=== PATIENT | female | born 1940 | race Caucasian/White ===

== ENCOUNTER → 2016-12-27 | Outpatient (CLI) | payer BC ==
[~2016-12-27] MED LIST: ASCA500 PO; ASPCH81X PO; CALCTAB5 PO; CHOL100010 PO; GEMF600T3 PO; MAGN250T3 PO; MULT-506 PO; MULT-580 PO; OMEG10007 PO; POTA75TA PO; SELE1TAB10 PO; VITA100C4 PO
== END | disposition home or self-care (01) ==
LOC: C.LAB 12:47
PROVIDERS: ATTEND Internal Medicine Rheumatology
DX: R70.0 Elevated erythrocyte sedimentation rate (principal); Z79.52 Long term (current) use of systemic steroids

== ENCOUNTER → 2017-02-19 | Outpatient (CLI) | payer BC | END | disposition home or self-care (01) | LOC: C.LAB1850 10:49 | PROVIDERS: ATTEND Internal Medicine Rheumatology | DX: M31.6 Other giant cell arteritis (principal); Z79.52 Long term (current) use of systemic steroids ==

== ENCOUNTER → 2017-03-04 | Outpatient (CLI) | payer BC | END | disposition home or self-care (01) | LOC: C.LAB1850 10:47 | PROVIDERS: ATTEND Internal Medicine Rheumatology | DX: R70.0 Elevated erythrocyte sedimentation rate (principal); M31.6 Other giant cell arteritis; M15.9 Polyosteoarthritis, unspecified; E55.9 Vitamin D deficiency, unspecified; T38.0X1A Poisoning by glucocorticoids and synthetic analogues, accidental (unintentional), initial encounter; Z51.81 Encounter for therapeutic drug level monitoring; Z79.52 Long term (current) use of systemic steroids ==

== ENCOUNTER → 2017-03-31 | Outpatient (CLI) | payer BC | END | disposition home or self-care (01) | LOC: C.MAMM 11:21 | PROVIDERS: ATTEND Internal Medicine Rheumatology | DX: M31.6 Other giant cell arteritis (principal); Z79.52 Long term (current) use of systemic steroids; E55.9 Vitamin D deficiency, unspecified; T38.0X1A Poisoning by glucocorticoids and synthetic analogues, accidental (unintentional), initial encounter ==

== ENCOUNTER → 2017-04-02 | Outpatient (CLI) | payer BC | END | disposition home or self-care (01) | LOC: C.LAB1850 10:11 | PROVIDERS: ATTEND Internal Medicine Rheumatology | DX: M31.6 Other giant cell arteritis (principal) ==

== ENCOUNTER → 2017-05-14 | Outpatient (CLI) | payer BC | END | disposition home or self-care (01) | LOC: C.LAB1850 11:12 | PROVIDERS: ATTEND Internal Medicine Rheumatology | DX: M31.6 Other giant cell arteritis (principal); M35.3 Polymyalgia rheumatica; Z79.52 Long term (current) use of systemic steroids; T38.0X1A Poisoning by glucocorticoids and synthetic analogues, accidental (unintentional), initial encounter ==

== ENCOUNTER → 2017-07-16 | Outpatient (CLI) | payer BC | END | disposition home or self-care (01) | LOC: C.LAB1850 09:46 | PROVIDERS: ATTEND Internal Medicine Rheumatology | DX: M31.6 Other giant cell arteritis (principal); M35.3 Polymyalgia rheumatica; Z79.52 Long term (current) use of systemic steroids ==

== ENCOUNTER → 2017-08-26 | Outpatient (CLI) | payer BC | END | disposition home or self-care (01) | LOC: C.LAB1850 10:58 | PROVIDERS: ATTEND Internal Medicine Rheumatology | DX: M31.6 Other giant cell arteritis (principal); M35.3 Polymyalgia rheumatica; T38.0X1A Poisoning by glucocorticoids and synthetic analogues, accidental (unintentional), initial encounter; M15.9 Polyosteoarthritis, unspecified ==

== ENCOUNTER → 2017-09-24 | Outpatient (CLI) | payer BC | END | disposition home or self-care (01) | LOC: C.LAB1850 10:32 | PROVIDERS: ATTEND Internal Medicine Rheumatology | DX: M31.6 Other giant cell arteritis (principal); M81.8 Other osteoporosis without current pathological fracture ==

== ENCOUNTER → 2017-11-06 | Outpatient (CLI) | payer BC ==
--- NOTE | 2017-11-06 14:35 | MAMMOGRAPHY REPORT ---
BILATERAL DIGITAL SCREENING MAMMOGRAM WITH CAD: 11/06/2017 CLINICAL HISTORY: Routine screening. Patient has no complaints. TECHNIQUE: Current study was also evaluated with a Computer Aided Detection (CAD) system. Bilateral CC and MLO views were obtained. COMPARISON: Comparison is made to exams dated: 11/05/2016 mammogram, 11/02/2015 mammogram, 4 mammogram, 10/29/2013 mammogram, 10/07/2012 mammogram, and 06/07/2010 mammogram - [facility]. BREAST COMPOSITION: There are scattered areas of fibroglandular density in both breasts. FINDINGS: No suspicious masses, calcifications, or areas of architectural distortion are noted in ei ther breast. There has been no significant interval change compared to prior exams. Bilateral benign -appearing calcifications are not significantly changed. IMPRESSION: ACR BI-RADS CATEGORY 2: BENIGN There is no mammographic evidence of malignancy. A 1 year screening mammogram is recommended. The pa tient will receive written notification of the results. Approximately 10% of breast cancers are not detected with mammography. A negative mammographic report should not delay biopsy if a clinically suggestive mass is present. Bre Weaver M.D. /:11/06/2017 12:13:44 Rehabilitation Manager: Jaqueline WINCHESTER(Lexie)(Haydee)([place]), [facility] letter sent: Normal 1/2 BI-RADS Code: ACR BI-RADS Category 2: Benign
== END | disposition home or self-care (01) ==
LOC: C.MAMM 09:33
PROVIDERS: ATTEND Obstetrics & Gynecology
DX: Z12.31 Encounter for screening mammogram for malignant neoplasm of breast (principal)

== ENCOUNTER → 2018-01-19 | Outpatient (CLI) | payer BC | END | disposition home or self-care (01) | LOC: C.RDSM 09:45 | PROVIDERS: ATTEND Physical Medicine & Rehabilitation Sports Medicine | DX: M17.12 Unilateral primary osteoarthritis, left knee (principal) ==

== ENCOUNTER → 2018-02-24 | Outpatient (CLI) | payer BC | END | disposition home or self-care (01) | LOC: C.LAB1850 14:21 | PROVIDERS: ATTEND Internal Medicine Rheumatology | DX: R70.0 Elevated erythrocyte sedimentation rate (principal); M35.3 Polymyalgia rheumatica ==

== ENCOUNTER 2023-01-22 08:12 | Observation (INO) ==
--- NOTE | 2023-01-03 15:11 | PAT Medication Instructions ---
Medication Instructions Date of Service January 03, 2023 Home Medications Medication Instructions Recorded 3-in-1 Commode #1 ea 12/23/22 3-in-1 Commode #1 ea 12/23/22 Wheeled Walker #1 ea 12/23/22 Wheeled Walker #1 ea 12/23/22 ezetimibe 10 mg tablet (Zetia) 5 mg PO DAILY 3-in-1 Commode #1 3-in-1 Commode #1 Wheeled Walker #1 Wheeled Walker #1 psyllium 1 packet PO TID PRN Continue as directed ezetimibe 10 mg tablet (Zetia) 5 mg PO DAILY DO NOT take the morning of surgery psyllium 1 packet PO TID PRN Take evening before surgery psyllium 1 packet PO TID PRN(if needed) Other Notes NOTHING TO EAT OR DRINK AFTER MIDNIGHT. If you have any questions please call us at [phone] or [phone] or [phone] or [phone]
--- NOTE | 2023-01-07 09:24 | Anesthesiology Consultation ---
Date of Service January 07, 2023 Assessment & Plan (1) Encounter for pre-operative examination: Chart Review Chart Review: Acceptable Risk for Surgery and Patient seen in Pre Admission Testing Pt would like least amount of pain medications of possible - Pt is NOT an acceptable Same Day Joint candidate due to age Per PAT appt on 01/07/23, patient denies any recent travel or large group activities. Pt is vaccinated for Covid. Will leave to surgeon's discretion if preop Covid testing needed. Educated on importance of using Covid precautions one week prior to surgery History Surgery Operation Date: 01/22/23 08:50 Proposed Procedures p Left Total Hip Arthroplasty - Nguyễn Wyatt MD Height/Weight Height: 5 ft 7.5 in Weight: 82.1 kg Allergies Allergy/AdvReac Type Severity Reaction Status Date / Time prednisone Allergy Severe Tachycardia Verified 01/02/23 09:15 procaine Allergy Intermediate Bradycardia Verified 01/07/23 09:19 atorvastatin Allergy Unknown Unknown Verified 01/02/23 09:02 pitavastatin [From Livalo] Allergy Unknown Unknown Verified 01/02/23 09:02 rosuvastatin Allergy Unknown Unknown Verified 01/02/23 09:02 Penicillins AdvReac Unknown Yeast Verified 01/07/23 09:19 infection Additional Notes: Novocaine allergy- bradycardia Medications Home Medications Medication Instructions Recorded Confirmed Last Taken ezetimibe 10 mg tablet (Zetia) 5 mg PO DAILY 06/28/21 01/02/23 Unknown 3-in-1 Commode #1 ea 12/23/22 01/02/23 Unknown 3-in-1 Commode #1 ea 12/23/22 01/02/23 Unknown Wheeled Walker #1 ea 12/23/22 01/02/23 Unknown Wheeled Walker #1 ea 12/23/22 01/02/23 Unknown psyllium 1 packet PO TID PRN Constipation 01/02/23 01/02/23 Unknown Past Medical History Medical History Hypercholesteremia Has been off Zetia x 3 months (PCP aware) Kidney stones Passed on own - no recent issues Migraine hx of Osteoarthritis PMR (polymyalgia rheumatica) No longer on meds - only follows with PCP- stable Snoring No witnessed apnea - no hx of sleep study Exercise / Class Metabolic Activity II 4-5 Yardwork/Stairs/Walk up hill (one flight of stairs - no chest pain or SOB ) Past Family History Family History Father Bladder cancer Denies family history of Ovarian cancer Breast cancer Colorectal cancer Past Surgical History Surgical History H/O arthroscopic knee surgery bilat H/O bilateral salpingo-oophorectomy History of hysterectomy, supracervical History of tooth extraction Hx of colonoscopy S/P repair of anterior cruciate ligament bilat Past Anesthesia History No Hx of Anesthesia Complications and No Family Hx of Anesthesia Complications History of PONV No Hx of PONV and No Hx of Motion Sickness Social History Smoking Status: Never smoker Do You Dip or Chew Tobacco: No Hx Alcohol Use: No Hx Substance Use: No substance use type: does not use Review of Systems Patient denies chest pain, shortness of breath, dyspnea on exertion, reflux, cough, wheezing, palpitations. No hx of seizures, stroke, ND. No hx of blood clots or blood transfusions Physical Exam Vital Signs VITALS BP 134/69 P 70 TEMP 97.7 SP02 95% RESP 16 Constitutional no acute distress ENMT Mouth: no TMJ clicking Thyromental Distance: < 3.5 Finger Breadths (3.0) Mallampati Class: I (smaller airway) Crowns to side teeth and molars Neck neck extension not limited Respiratory normal respiratory effort; no respiratory distress Auscultation: lungs clear to auscultation bilaterally; no wheezes Cardiovascular Rate/Rhythm: regular rate and regular rhythm Heart Sounds: no murmur Vessels: no carotid bruit Musculoskeletal Spine: no pain with cervical ROM Extremities: extremities normal to inspection Psychiatric Orientation: alert Lab Results Anesthesia Preop Results Results Anesthesia Widget: WBC 6.35 K/ul (4.8-10.8) 01/07/23 Hgb 14.3 g/dl (12.0-16.0) 01/07/23 Hct 42.0 % (37.0-47.0) 01/07/23 Plt 261 K/uL (130-400) 01/07/23 Na 140 mmol/L (136-145) 01/07/23 K 3.9 mmol/L (3.5-5.1) 01/07/23 Cl 106 mmol/L (98-107) 01/07/23 CO2 31 mmol/L (21-32) 01/07/23 BUN 14 mg/dl (6-23) 01/07/23 Creat 0.73 mg/dl (0.6-1.2) 01/07/23 Glucose Level 80 mg/dl (70-99(Fasting)) 01/07/23 PT 10.5 Seconds (9.0-12.0) 01/07/23 PTT 25.3 Seconds (21.0-31.0) 01/07/23 INR 1.0 (0.9-1.1) 01/07/23 Blood Type A Positive 01/07/23 Antibody Screen NEGATIVE 01/07/23 Testing Electrocardiogram Date: 01/07/23 Findings: + NSR @ (70bpm) Normal EKG per cardio Chest X-Ray Date: 01/07/23 Findings: + NAD and + cardiomegaly FINDINGS: PA and lateral chest radiographs are compared to study dated 01/04/2016. The heart is enlarged noting atherosclerotic calcification of the thoracic aorta. The pulmonary vasculature is noncongested. Chronic interstitial thickening is similar to previous. The lungs and pleural spaces are clear noting bibasilar scarring/atelectasis. There is no pneumothorax. The skeletal structures are osteopenic. The bony thorax appears intact. COVID-19 Risk Screen Screening Information COVID-19 Screen Date: 01/07/23 Exposure 21 Days Family/Household +COVID Last 21 Days: No Exposure 10 Days Any COVID Exposure Last 10 Days: No Symptoms Last 10 Days Experienced COVID Sx Last 10 Days: No + COVID 0-90 Days COVID + in Last 0-90 Days: No Risk Plan COVID Risk Plan: No Risk Identified Patient Education COVID Preop Screening Education Complete: Yes
--- NOTE | 2023-01-16 09:11 | History and Physical Report ---
CHIEF COMPLAINT: Left hip pain. HISTORY OF PRESENT ILLNESS: The patient is an 82-year-old female referred by my partner, Dr. Ruffin for surgical treatment of her left hip. She has got a fairly long history of intermittent on and off knee pain, but increasing hip pain. The left side has been a bit worse than right. She describes b uttock pain, groin pain, thigh pain. It radiates down to her knee, but no further. She is limping a ll the time, but more as the day goes on. She takes medicines with minimal relief. She would now li ke to have this fixed. PAST MEDICAL HISTORY: Significant for: 1. Elevated cholesterol. 2. Sleep apnea. 3. Kidney stones. PAST SURGICAL HISTORY: Includes: 1. Bilateral knee scopes. 2. Hysterectomy. ALLERGIES: None. CURRENT MEDICATIONS: 1. Biotin. 2. Calcium with vitamin D. 3. Vitamin D3. 4. Vitamin B12. 5. Zetia. 6. Osteo Bi-Flex. 7. Magnesium oxide. 8. Psyllium. 9. Vitamin E. SOCIAL HISTORY: An 82-year-old female. She is . She is from [place]. Does not smoke. FAMILY HISTORY: Noncontributory. REVIEW OF SYSTEMS: Negative for diabetes, neurologic problem, vascular problems or bleeding disorder s. No history of DVT or PE. No known bleeding problems. PHYSICAL EXAMINATION: GENERAL: Shows a pleasant, elderly 82-year-old female. Looks to be in excellent health. HEENT: Benign. NECK: Supple. No lymphadenopathy. LUNGS: Clear to auscultation. HEART: Has a regular rate and rhythm. ABDOMEN: Soft, nontender, nondistended. EXTREMITIES: Grossly neurovascularly intact except as follows. Examination of the left hip revealed patient walks with a bit of an antalgic gait. Clearly limps on the left side. Leg lengths appeared clinically pretty equal. She has very stiff hip with limited in ternal rotation to neutral, which re-creates her pain. Negative straight leg raise. Minimal knee ef fusion. X-RAYS: X-rays of the hip from previously reviewed. It shows advanced bilateral hip arthritis. The left side is a bit worse than right. She has got extensive osteophytes around the femoral head and acetabulum on both sides. X-rays of both knees revealed moderate knee arthritis in both sides. ASSESSMENT: An 82-year-old female with: 1. Advanced bilateral hip degenerative joint disease, left side more so than right. 2. Moderate to advanced knee arthritis. It does appear her hips are giving her the bigger problem, specifically on the left side. PLAN: We discussed treatment options. She would like to have her left hip replaced. We will take he r to the operating room and do left total hip replacement. The risks and benefits of this procedure were explained to the patient include but not limited to DVT, PE, , infection, neurological inju ry, vascular injury, bleeding problem, pain, limited range of motion, stiffness, failure to relieve h er symptoms, incomplete relief of symptoms, need for further surgery in the future, dislocation, etc. The patient understands and desires to proceed. Informed consent was obtained. In total, we will do the best we can to get her leg length equal. She is probably going to need to h ave surgery on her other hip at some point in the future and we will make measurements so that we hop efully can recreate leg lengths. As far as discharge plans, she is planning to be discharged to home with her 's assistance in home health. Job ID: [id number]
[~2023-01-22 08:12] MED LIST changes: +ACETAMINOPHEN 500 MG TAB PO SCH; -ASCA500 PO; -ASPCH81X PO; +BUPIVACAINE 0.5 % 5 MG/1 ML PF 10ML VIAL ONE; -CALCTAB5 PO; -CHOL100010 PO; +CeleBREX 200 MG CAP PO SCH; +FAMOTIDINE 20 MG TAB PO SCH; -GEMF600T3 PO; +LR 500ML BOLUS, THEN 15ML/HR IV SCH; +LR 60ML/HR IV SCH; -MAGN250T3 PO; +METOCLOPRAMIDE HCL 10 MG TABLET PO SCH; -MULT-506 PO; -MULT-580 PO; -OMEG10007 PO; -POTA75TA PO; -SELE1TAB10 PO; +TRANEXAMIC ACID 1,000 MG **IV Pre-op IV SCH; -VITA100C4 PO; +ceFAZolin 2000MG 2,000 MG/15 ML SYR IV SCH
--- NOTE | 2023-01-22 08:42 | History & Physical Bridge Note ---
Date of Service January 22, 2023 History & Physical Bridge Note I have examined the patient, reviewed the History & Physical and in the interval since the performance of the History & Physical I have noted the following changes of clinical significance: no changes noted
[2023-01-22] MEDS ORDERED: ATROPINE SULFATE 0.1 MG/ML 10ML SYR IV PRN (09:23)
[2023-01-22] MEDS ORDERED: ePHEDrine sulfate 50 MG/ML AMP IV PRN (09:23)
[2023-01-22] MEDS ORDERED: fentaNYL citrate 100 MCG/2 ML VIAL IV PRN (09:23)
[2023-01-22] MEDS ORDERED: ONDANSETRON INJ 2 MG/ML 2 ML VIAL IV PRN ×2 (09:23→13:41)
[2023-01-22] MEDS ORDERED: MIDAZOLAM HCL 1 MG/ML 2ML VIAL ONE ×2 (09:49→11:49)
[2023-01-22] MEDS ORDERED: BUPIVACAINE/EPINEPHRINE 0.5% MPF 1:200,000 10 ML VIAL ONE (11:04)
[2023-01-22] MEDS ORDERED: BUPIVACAINE/EPINEPHRINE 0.5% MPF 1:200,000 30 ML VIAL ONE (11:05)
[2023-01-22] MEDS ORDERED: PROPOFOL IV EMULSION 10 MG/ML 20 ML VIAL IV ONE (11:41)
[2023-01-22] MEDS ORDERED: PHENYLEPHRINE 100MCG/ML 5ML SYR ONE (11:41)
--- NOTE | 2023-01-22 12:55 | Operative Report ---
PG Post Operative Report Pre & Post Diagnosis Operation Date: 01/22/23 10:40 Pre-Op Diagnosis: Left Hip Degenerative Joint Disease Post-Op Diagnosis: Left Hip Degenerative Joint Disease I identified the patient and participated in the time-out.: Yes Procedure Operation Date: 01/22/23 10:40 Actual Procedures p Left Total Hip Arthroplasty(Left) - Nguyễn Wyatt MD Surgeon Nguyễn Wyatt MD Legal Recovery Specialist Hudson Liu PA-C Estimated Blood Loss 100 Findings Consistent with Post-Op Diagnosis Operative findings were advanced left hip DJD. She had extensive grade 4 [id number] disease with eburnation of the femoral head. She had large anterior acetabular osteophyte and inferior acetabular osteophytes. Large hip joint effusion. Specimens Left femoral head sent for pathology Drains None Anesthesia Type Spinal MAC Complications none Disposition Accompanied Patient To Recovery: No Indications Patient is an 82-year-old female has had a several year history of increasing bilateral hip pain discomfort left side greater than right. She been through extensive conservative treatment which became less successful as time is gone on. Pain is become more debilitating and limited here activities. Just she elected to the left total hip arthroplasty. Description of Procedure Operative implants consist of: 1 Biomet G7 size 54 mm acetabular shell. 2. 6.5 cancellous acetabular screws 1 of 35 mm length 1 to 20 mm length. 3. Essex hole limiter. 4. Highly cross-linked polyethylene liner with a 54 mm outer diameter 36 mm inner diameter. 5. DePuy Corail size 10 KLA femoral stem. 6. +5/36 mm ceramic articular ball. The patient was taken the operating, identified, and placed on the operating table supine position protectors were properly padded. IV antibiotics tried by anesthesia team. A spinal anesthetic had been implemented in the holding area. Romero catheter was placed in sterile fashion with the patient then placed in the right lateral decubitus position. Axillary roll was placed. Stulberg hip positioner was used for positioning. Left hip and leg were then prepped and draped in usual sterile fashion. A posterolateral approach to the left hip was then performed through a curvilinear incision centered over the greater trochanter. Sharp dissection was carried through subcutaneous tissue down to level the IT band gluteal fascia the IT band gluteal fascia was lysed longitudinally in line with skin incision. The underlying greater bursa was excised. Piriformis and external rotators and the posterior hip joint capsule were then released from the posterior aspect hip as a single layer. She had a large hip joint effusion. Hip was internally rotated and dislocated. Femoral neck osteotomy cut was made with Final Cut about 11 mm above the lesser trochanter. Femoral head was removed and sent for pathology. The femur was retracted anteriorly. Attention drawn the acetabulum. The acetabular labrum was excised. The pulmonary fat was excised. A large central osteophyte was removed. Sequential reaming the acetabular was then performed beginning with a size 45 and progressing up to 53. Did reamed a little bit with a 54 reamer and then placed a 54 mm Biomet G7 acetabular shell in about 40 degrees lateral opening and 20 degrees of anteversion. It was fixed with two 6.5 cancellous acetabular screws. Large anterior osteophyte was removed. Trial liner was placed. Attention drawn the femur. The proximal femur was entered with a cookie cutter followed by canal finder. Her cancellous envelope was 0 point strong and the rigid and well supportive especially considering her age. I then broached beginning with size 8 and progressed to up to 10. Excellent fit of the tendon. Trialed the hip and the hip was fully stable with a +5 articular ball. Was fully stable in full extension and external rotation and flexion to 90 degrees internal Tatian over [address] We elect to place these implants. All trial implants were removed. An apex hole limiter was placed. Highly cross-linked polyethylene liner was placed. A size 10 KLA femoral stem was impacted in position. +5/36 mm ceramic articular ball was placed. Hip was located once again found to be stable. Attention drawn toward closing. The wounds irrigated with copious amounts of pulsatile lavage solution. Injected locally with 60 cc of half percent Marcaine with epinephrine. The posterior capsule and external rotators were repaired through drill holes in the posterior trochanter as a single layer with number 2 Tycron suture through drill holes in the posterior trochanter. The IT band gluteal fascia then closed in 1 PDS suture in a running fashion the subcutaneous tissues then closed with 2 layers the deep layer #1 Vicryl suture and subcutaneous tissue with 2-0 Dexon suture in a buried interrupted fashion. Skin was closed skin wilmar. Leg was then cleaned and dried and sterile dressing with Xeroform, 4 x 4's, ABD pad, foam tape was applied. Patient then transferred to the recovery room in stable condition. Patient tolerated the procedure well and there were no complications. Hudson Liu, my physician patient clerical assistant, was present for the entire procedure. His assistance was required for proper patient positioning, prepping and draping, surgical exposure, retraction, perform the technical details of the operation, placement of the hardware, closure of the wound and placement of the sterile bandage. I attest to the content of the Intraoperative Record and any orders documented therein. Any exceptions are noted below.
--- NOTE | 2023-01-22 13:29 | Anesthesiology Progress Note ---
Date of Service January 22, 2023 Anesthesia Post Procedure Vital Signs Vital Signs: Temp Pulse Pulse Resp BP Pulse Ox O2 Del Method 01/22/23 13:20 66 22 120/60 99 Nasal Cannula 01/22/23 13:10 71 12 113/55 L 100 Nasal Cannula 01/22/23 13:00 36.6 C 68 20 125/57 L 100 Nasal Cannula 01/22/23 12:54 36.6 C 75 19 117/53 L 100 Oxymask 01/22/23 08:48 36.4 C L 79 22 167/90 H 94 Room Air O2 Flow Rate 01/22/23 13:20 3 01/22/23 13:10 3 01/22/23 13:00 3 01/22/23 12:54 6 01/22/23 08:48 Pain Intensity Right Shoulder: Pain Intensity: 2 Transfer of Care Handoff Completed per policy Notes Mental Status: alert / awake / arousable and participated in evaluation Nausea / Vomiting: adequately controlled Pain: adequately controlled Airway Patency, RR, SpO2: stable & adequate BP & HR: stable & adequate Hydration State: stable & adequate Neuraxial Anesthesia: was administered and sensory block is resolving Anesthetic Complications: no major complications apparent and Pt Satisfied with anesthetic care
[2023-01-22] MEDS ORDERED: MAGNESIUM HYDROXIDE SUSP 30 ML UDC PO PRN (13:41)
[2023-01-22] MEDS ORDERED: NALOXONE HCL 0.4 MG/1 ML VIAL/CARP IV PRN (13:41)
[2023-01-22] MEDS ORDERED: ALUMINUM/MAGNESIUM SUSP 30 ML UDC PO PRN (13:41)
[2023-01-22] MEDS ORDERED: HYDROmorphone INJ 0.5 MG/0.5 ML SYR IV PRN (13:41)
[2023-01-22] MEDS ORDERED: bisacodyL 10 MG SUPP PR PRN (13:41)
[2023-01-22] MEDS ORDERED: METOCLOPRAMIDE HCL INJ 5 MG/ML 2 ML VIAL IV PRN (13:41)
[2023-01-22] MEDS ORDERED: traMADol HCL 50 MG TABLET PO PRN (13:41)
[2023-01-22] MEDS ORDERED: PSYLLIUM or GUAR GUM FIBER POWDER PACKET PO PRN (14:13)
--- NOTE | 2023-01-22 14:37 | XRay Report ---
SINGLE VIEW PELVIS; SINGLE VIEW LEFT HIP CLINICAL HISTORY: Postoperative examination. FINDINGS: An AP portable view of the hips and lower pelvis with a crosstable lateral portable view of the left hip are compared to study dated 10/14/2016. A bipolar left hip arthroplasty is in near-chata omic alignment. At least 2 cortical lag screws transfix the acetabular cup. No acute fracture is iden tified. There are expected postoperative changes overlying the low hip including skin clips, subcutan eous gas, and soft tissue swelling. Advanced arthritic changes seen in the right hip. There is degene rative sclerosis of the pubic symphysis. A Romero catheter is in place. A small metallic foreign body is suggested in the right upper thigh. IMPRESSION: Expected postoperative findings status post left hip arthroplasty. No acute fracture is s een. ACT 112: Negative or not required by law. Electronically signed by: Berto Ballard M.D. 01/22/2023 2:36 PM
[2023-01-22] MEDS: KETOROLAC TROMETHAMINE 15 MG/ML VIAL IV SCH ×2 (14:44→19:34)
[2023-01-22] MEDS: SODIUM CHLORIDE 0.9% 1000ML 1,000 ML IV SCH (14:49)
[2023-01-22] MEDS ORDERED: dexAMETHasone 10 MG in SYRINGE 0 ML IV SCH (15:00)
[2023-01-22] MEDS: ACETAMINOPHEN 500 MG TAB PO SCH ×3 (15:18→22:21)
[2023-01-22] MEDS: ASCORBIC ACID 500 MG TAB PO SCH (18:03)
[2023-01-22] MEDS ORDERED: TRANEXAMIC ACID / 0.7% NACL 1,000 MG/100 ML BAG IV SCH (19:00)
[2023-01-22] MEDS: ceFAZolin 2000MG 2,000 MG/15 ML SYR IV SCH (19:27)
[2023-01-22] MEDS: ASPIRIN 81 MG ECTAB PO SCH (20:20)
[2023-01-22] MEDS: DOCUSATE SODIUM 100 MG CAP PO SCH (20:21)
[2023-01-22] MEDS ORDERED: SENNA 8.6 MG TAB PO SCH (21:00)
[2023-01-23] MEDS: SODIUM CHLORIDE 0.9% 1000ML 1,000 ML IV SCH (01:10)
[2023-01-23] MEDS: KETOROLAC TROMETHAMINE 15 MG/ML VIAL IV SCH ×2 (02:09→08:48)
[2023-01-23] MEDS: ceFAZolin 2000MG 2,000 MG/15 ML SYR IV SCH (02:09)
[2023-01-23] MEDS: ACETAMINOPHEN 500 MG TAB PO SCH (05:43)
--- NOTE | 2023-01-23 07:59 | Progress Notes ---
SUBJECTIVE: An 82-year-old female postoperative day 1 from a left total hip replacement. She looks good. Doing pretty well. Really not that much pain. No chest pain or shortness of breath. Not fee ling dizzy or lightheaded. OBJECTIVE: VITAL SIGNS: Temperature is 36.8. Vital signs are stable. GENERAL: Shows a pleasant, elderly female. She is sitting at her bedside chair and looks pretty com fortable this morning. LUNGS: Clear to auscultation. HEART: Regular rate and rhythm. ABDOMEN: Soft, nontender, and nondistended. EXTREMITIES: Grossly neurovascularly intact except as follows: Examination of the left hip reveals the dressing to be clean, dry, and intact. The leg lengths were equal. She can dorsiflex and planta rflex her foot appropriately. She is neurologically intact. LABORATORY DATA: Labs are pending. ASSESSMENT: An 82-year-old female postoperative day 1 from a left total hip replacement. She is doi ng quite well. Pain is well controlled. Hip is located. She is neurologically intact. PLAN: 1. DVT prophylaxis includes thigh-high TEDs, SCDs, and aspirin twice a day. 2. PT/OT, weightbear as tolerated. Left total hip protocol. 3. Pain control, doing okay with current pain regimen. 4. Disposition: Plan to discharge home with some home health if she does okay in therapy today. We are going to try and limit medicines due to constipation issues. She is on multiple constipation me dicines as per her medical doctor. Job ID: [id number]
[2023-01-23] MEDS: DOCUSATE SODIUM 100 MG CAP PO SCH (08:47)
[2023-01-23] MEDS: ASPIRIN 81 MG ECTAB PO SCH (08:47)
[2023-01-23] MEDS: ASCORBIC ACID 500 MG TAB PO SCH (08:47)
[2023-01-23 08:59] LABS: Basophils # (auto) 0.03 K/uL (0-0.2); Basophils % (auto) 0.2 %; Hematocrit (blood only) 37.1 % (37.0-47.0); Hemoglobin 12.8 g/dl (12.0-16.0); Immature Granulocytes # (auto) 0.07 K/uL (0.01-0.20); Immature Granulocytes % (auto) 0.5 %; Lymphocytes % (auto) 5.7 %; Mean Corpuscular Hemoglobin 31.1 pg (25.0-34.0); Mean Corpuscular Hgb Conc 34.5 g/dL (32.0-36.0); Mean Platelet Volume 9.8 fL (9.4-12.4); Monocytes # (auto) 1.03 K/uL (0.11-0.59); Monocytes % (auto) 7.4 %; Neutrophils # (auto) 12.03 K/uL (1.40-6.50); Neutrophils % (auto) 86.2 %; Platelet Count 230 K/uL (130-400); RDW Coefficient of Variation 12.8 % (11.5-14.5); RDW Standard Deviation 41.8 fL (36.4-46.3); Red Blood Count 4.12 M/uL (4.20-5.40); White Blood Count 13.96 K/ul (4.8-10.8)
[2023-01-23] MEDS ORDERED: DOCUSATE SODIUM/SENNA 50/8.6MG TAB PO SCH (09:00)
[2023-01-23] MEDS ORDERED: MULTIVITAMIN TAB PO SCH (09:00)
[2023-01-23] MEDS ORDERED: EZETIMIBE 10 MG TABLET PO SCH (09:00)
[2023-01-23 09:13] LABS: BUN Creatinine Ratio 23.4 (10-20); Calcium 9.2 mg/dl (8.5-10.1); Creatinine Clr Calc Pharmacy 65.5 ml/min; Est GFR (African American) 84.5 ml/min; Est GFR (Non-African American) 72.9 ml/min; Potassium 3.7 mmol/L (3.5-5.1)
[2023-01-23] MEDS ORDERED: ACETAMINOPHEN 325 MG TAB PO PRN (09:49)
--- NOTE | 2023-01-27 08:41 | Discharge Summary ---
Date of Service January 27, 2023 Admission HPI (Per Admitting) CHIEF COMPLAINT: Left hip pain. HISTORY OF PRESENT ILLNESS: The patient is an 82-year-old female referred by my partner, Dr. Ruffin for surgical treatment of her left hip. She has got a fairly long history of intermittent on and off knee pain, but increasing hip pain. The left side has been a bit worse than right. She describes buttock pain, groin pain, thigh pain. It radiates down to her knee, but no further. She is limping all the time, but more as the day goes on. She takes medicines with minimal relief. She would now like to have this fixed. PAST MEDICAL HISTORY: Significant for: 1. Elevated cholesterol. 2. Sleep apnea. 3. Kidney stones. PAST SURGICAL HISTORY: Includes: 1. Bilateral knee scopes. 2. Hysterectomy. ALLERGIES: None. CURRENT MEDICATIONS: 1. Biotin. 2. Calcium with vitamin D. 3. Vitamin D3. 4. Vitamin B12. 5. Zetia. 6. Osteo Bi-Flex. 7. Magnesium oxide. 8. Psyllium. 9. Vitamin E. SOCIAL HISTORY: An 82-year-old female. She is . She is from [place]. Does not smoke. FAMILY HISTORY: Noncontributory. REVIEW OF SYSTEMS: Negative for diabetes, neurologic problem, vascular problems or bleeding disorders. No history of DVT or PE. No known bleeding problems. PHYSICAL EXAMINATION: GENERAL: Shows a pleasant, elderly 82-year-old female. Looks to be in excellent health. HEENT: Benign. NECK: Supple. No lymphadenopathy. LUNGS: Clear to auscultation. HEART: Has a regular rate and rhythm. ABDOMEN: Soft, nontender, nondistended. EXTREMITIES: Grossly neurovascularly intact except as follows. Principal Diagnosis Same as "Discharge Diagnosis" noted below under Discharge Instructions. Discharge Data Procedures Performed Operation Date: 01/22/23 10:40 Actual Procedures p Left Total Hip Arthroplasty(Left) - Nguyễn Wyatt MD Hospital Course (1) Status post total hip replacement, left: Admitted on 01/22 after undergoing elective L DAVID. She did well after surgery and had no post operative complications. Discharged home on POD 1. PG Care Time/CCT Total # of Minutes Spent Total Time Spent with Patient: Total time spent is greater than 50% in coordination of care (as documented) at patient's floor/unit and/or counseling patient: Discharge Plan Discharge Items Patient Disposition: Home - Home Health Services Reason For Visit: POST SURGICAL CARE Discharge Diagnosis: Left Hip Replacement Activity: Per Instructions section Activity Comment: Follow/Obey hip precautions at all times. Weightbearing: Full weightbearing Weightbearing Comment: Weightbear as tolerated obeying hip precautions Non-emergency contact: Surgeon Call non-emergency contact if: you have any medication questions Follow-up/Referrals: Diogo Hyde PA-C [Primary Care Provider] - Diet: Regular Addtl Attending Provider Instructions: ACTIVITY RECOMMENDATIONS: Physical Therapy: * Aggressive physical therapy is not usually needed. You will learn to take care of yourself safely and walk. * Follow the "Hip Precautions Instructions." * In some cases, the high school social studies teacher at the hospital will arrange to have a therapist come to your house for the first couple of weeks to help you learn these skills. * You need to practice on your own or with the help of a family member as needed. * When you learn these skills, most of the therapy can be done on your own. Home Exercise: * You were shown a series of exercises in the hospital. Do these exercises three to four times each day including the exercises you were shown in physical therapy. Walking: * Get up and walk several times each day. For the first four weeks, try not to stand or walk for more than one hour at a time. If you do stand or walk for more than one hour, you will not hurt anything, but your leg will likely swell. * As you feel comfortable, you may change from the walker or crutches to a cane and then to independent walking. MEDICATIONS: New Medicine: * You will likely be taking one or more of these medicines: 1. Tramadol - Take, as directed, when you need it, every six hours to control your pain. 2. Aspirin - Thins your blood to lessen the chance of forming a blood clot. * The most common side effects of pain medicine and iron are nausea and constipation. If nausea or constipation is too much of a problem or if you have any questions about your new medicines or doses, call [facility] at [phone]. We will try to help you manage these issues. "VERY IMPORTANT TO READ AND REVIEW" Pain: * The immediate post-operative period after hip replacement surgery is often quite painful. * You are given a prescription for pain medicine. You should take it, as directed, when you need it, especially before physical therapy and before going to bed. Pain that interferes with sleep is very common and can last several months. * You will likely need pain medicine for the first two to four weeks. It will not stop all of the pain. The pain will lessen and as you feel better, you may change to milder pain medicine such as Tylenol. * The most common side effects of pain medicine are nausea and constipation, so don't take more than you need. SPECIAL CARE INSTRUCTIONS: TEDs/Elastic Stockings: * The white elastic stockings help limit swelling and prevent blood clots from forming in your legs. The more you wear them, the more they work. * Wear them for six weeks. Incision Site Care: * Remove dressing postoperative day 2 and then shower. Keep direct shower pressure off the incision site. * After showering, cover graciela with dry gauze and change daily or more frequently if the dressing is getting saturated with drainage. * May completely stop using bandage if wound is dry and no drainage * Graciela are removed between 2 and 3 weeks post-op. If your follow-up appointment is made before 2 weeks, please have your appointment re- scheduled. It is too early to remove the graciela. Prevention of Infection: * Take antibiotics one hour before any dental cleaning, dental work, urological procedure, gastrointestinal procedure or any invasive surgery in order to prevent your new joint from getting infected. * You may get the antibiotics from the doctor performing the procedure or you may call our office at before and we will call in a prescription to the pharmacy of your choice. Things to Watch For: * Drainage from the incision site that occurs more than one week after your surgery. * Severely increased leg pain or swelling. * Increased redness at the incision site. * Fever above 102 degrees Fahrenheit. * Unusual chest pain or shortness of breath. * Unusual pain or burning with urination. Call [facility] at with any of the above problems or if you have any questions about your medicines or recovery. FOLLOW UP VISIT: Make an appointment to see your doctor for approximately two weeks after surgery for a progress check and staple removal by calling the office at . Pending Studies at Discharge: No Stand-Alone Forms: [facility], Smoking Cessation Medications and DC Order Prescriptions: Continued ondansetron HCl 4 mg tablet 4 mg PO Q6 PRN (Reason: nausea) Qty: 20 1RF sennosides-docusate sodium [Senokot-S] 8.6-50 mg tablet 1 tab-cap PO DAILY Qty: 14 0RF Rx Instructions: Take daily to prevent constipation aspirin [Jeffery Low Dose Aspirin] 81 mg tablet,delayed release (DR/EC) 81 mg PO BID 45 Days Qty: 90 0RF Rx Instructions: Take to prevent blood clots. tramadol 50 mg tablet 50 mg PO Q6H PRN (Reason: pain) Qty: 30 0RF Rx Instructions: Take as needed for Pain. ketorolac 10 mg tablet 10 mg PO Q6 5 Days Qty: 20 0RF Rx Instructions: Take 4 times per day with food for 5 days to lessen pain and swelling. acetaminophen 500 mg capsule 1,000 mg PO TID 30 Days Qty: 180 0RF Rx Instructions: Take 3 times per day to lessen pain. (DME) Wheeled Walker Misc See Rx Instructions .MEDSUPPLY Qty: 1 0RF Rx Instructions: As directed (DME) 3-in-1 Commode Misc See Rx Instructions .MEDSUPPLY Qty: 1 0RF Rx Instructions: As directed (DME) [facility] See Rx Instructions .MEDSUPPLY Qty: 1 0RF Rx Instructions: As directed (DME) 3-in-1 Commode Misc See Rx Instructions .MEDSUPPLY Qty: 1 0RF Rx Instructions: As directed ezetimibe [Zetia] 10 mg tablet 5 mg PO DAILY psyllium Packet 1 packet PO TID PRN (Reason: Constipation) Rx Instructions: mix into at least 8 oz of water or juice before administering Krames/Other Patient Handouts: How Your Hip Works, Hip Surg Daily Tasks, Hip Adduction (Strength), Managing Post-Op Pain at Home Admission Data Admit Date/Time: 01/22/23 12:53 Attending Provider: Nguyễn Wyatt Admit Provider: Nguyễn Wyatt Primary Care Provider: Diogo Hyde Other Interventions: Discharge Summary Assessment (RN) Last Done: 01/23/23 09:58
== END 2023-01-23 11:26 | disposition home health service (06) ==
LOC: ASU 08:12 → 3W 08:12

== ENCOUNTER 2023-06-16 06:26 | Observation (INO) ==
--- NOTE | 2023-06-05 16:18 | Anesthesiology Consultation ---
Date of Service June 05, 2023 Assessment & Plan (1) Encounter for pre-operative examination: Chart Review Chart Review: Acceptable Risk for Surgery and Patient NOT seen in Pre Admission Testing - Due to age- patient is NOT an ideal OPJ candidate -COVID screening: Per PAT nursing assessment on 06/05/23. No known COVID-19 positive contacts or current COVID-19 related symptoms. Travel screen negative. Patient vaccinated for Covid. At surgeon discretion if preop Covid testing being done Left DAVID 01/22/23= Done under SAB- L3-4 after attempt at L4-5 (2 attempts) History Surgery Operation Date: 06/16/23 08:50 Proposed Procedures p Right Total Hip Arthroplasty - Nguyễn Wyatt MD Height/Weight Height: 5 ft 7 in Weight: 81.193 kg Allergies Allergy/AdvReac Type Severity Reaction Status Date / Time prednisone Allergy Severe Tachycardia Verified 06/16/23 06:52 pitavastatin [From Livalo] Allergy Intermediate leg pain Verified 06/16/23 06:52 and stomach problems procaine Allergy Intermediate Bradycardia Verified 06/16/23 06:52 rosuvastatin Allergy Intermediate leg pain Verified 06/16/23 06:52 and stomach problems atorvastatin Allergy Mild leg pain Verified 06/16/23 06:52 and stomach problems Penicillins AdvReac Intermediate Yeast Verified 06/16/23 06:52 infection Additional Notes: Novocaine allergy- bradycardia Medications Home Medications Medication Instructions Recorded Confirmed Last Taken ezetimibe 10 mg tablet (Zetia) 5 mg PO QAM 06/28/21 06/16/23 12/25/22 3-in-1 Commode #1 ea 12/23/22 01/02/23 Unknown 3-in-1 Commode #1 ea 12/23/22 01/02/23 Unknown Wheeled Walker #1 ea 12/23/22 01/02/23 Unknown Wheeled Walker #1 ea 12/23/22 01/02/23 Unknown cephalexin 500 mg capsule 2,000 mg PO ONCE #4 caps 04/21/23 06/16/23 Unknown acetaminophen 500 mg capsule 500 - 1,000 mg PO Q8H PRN Pain 06/05/23 06/16/23 Unknown aspirin 81 mg tablet,delayed 81 mg PO QAM 06/05/23 06/16/23 Unknown release (Jeffery Low Dose Aspirin) acetaminophen 500 mg tablet 1,000 mg PO TID pain 30 days #180 06/13/23 06/16/23 Unknown (Tylenol Extra Strength) tabs aspirin 81 mg tablet,delayed 81 mg PO BID 45 days #90 tabs 06/13/23 06/16/23 Unknown release (Jeffery Low Dose Aspirin) ketorolac 10 mg tablet 10 mg PO TID pain 5 days #15 tabs 06/13/23 06/16/23 Unknown ondansetron 4 mg disintegrating 4 mg PO Q8 PRN nausea #20 tabs 06/13/23 06/16/23 Unknown tablet sennosides 8.6 mg tablet (Senokot) 8.6 mg PO BID prevent constipation 06/13/23 06/16/23 Unknown 14 days #28 tabs Active Medications Generic Name Dose Route Start Last Admin Trade Name Freq PRN Reason Stop Dose Admin Acetaminophen 1,000 mg 06/16/23 06:00 06/16/23 06:57 Acetaminophen 500 Mg Tab PO 06/16/23 18:00 1,000 mg PREOP PER Administration Celecoxib 200 mg 06/16/23 06:00 06/16/23 06:58 Celebrex 200 Mg Cap PO 06/16/23 18:00 200 mg PREOP PER Administration Famotidine 20 mg 06/16/23 06:00 06/16/23 06:58 Famotidine 20 Mg Tab PO 06/16/23 18:00 20 mg PREOP PER Administration Metoclopramide HCl 10 mg 06/16/23 06:00 06/16/23 06:58 Metoclopramide Hcl 10 Mg Tablet PO 06/16/23 18:00 10 mg PREOP PER Administration Past Medical History Medical History History of kidney stones no surgery required/passed on own Hx of migraines Hypercholesteremia Osteoarthritis PMR (polymyalgia rheumatica) No longer on meds - only follows with PCP- stable Snoring No witnessed apnea - no hx of sleep study Past Family History Family History Father Bladder cancer Other No family history of adverse response to anesthesia Denies family history of Ovarian cancer Breast cancer Colorectal cancer Past Surgical History Surgical History H/O arthroscopic knee surgery bilat H/O bilateral salpingo-oophorectomy History of hysterectomy, supracervical History of tooth extraction History of total hip arthroplasty Left DAVID 01/22/23= Done under SAB- L3-4 after attempt at L4-5 (2 attempts) Hx of colonoscopy S/P repair of anterior cruciate ligament bilat Social History Smoking Status: Never smoker Do You Dip or Chew Tobacco: No Hx Alcohol Use: No substance use type: does not use Physical Exam Vital Signs Last Vital Signs Temp 36.8 C 06/16/23 06:46 Pulse 72 06/16/23 06:46 Resp 20 06/16/23 06:46 BP 147/70 H 06/16/23 06:46 Pulse Ox 95 06/16/23 06:46 O2 Del Method Room Air 06/16/23 06:46 Lab Results Anesthesia Preop Results Results Anesthesia Widget: WBC 5.75 K/ul (4.8-10.8) 05/22/23 Hgb 13.3 g/dl (12.0-16.0) 05/22/23 Hct 40.1 % (37.0-47.0) 05/22/23 Plt 249 K/uL (130-400) 05/22/23 Na 142 mmol/L (136-145) 05/22/23 K 3.9 mmol/L (3.5-5.1) 05/22/23 Cl 105 mmol/L (98-107) 05/22/23 CO2 30 mmol/L (21-32) 05/22/23 BUN 23 mg/dl (6-23) 05/22/23 Creat 0.82 mg/dl (0.6-1.2) 05/22/23 Glucose Level 87 mg/dl (70-99(Fasting)) 05/22/23 PT 10.7 Seconds (9.0-12.0) 05/22/23 PTT 26.8 Seconds (21.0-31.0) 05/22/23 INR 1.0 (0.9-1.1) 05/22/23 Blood Type A Positive 05/22/23 Antibody Screen NEGATIVE 05/22/23 Testing Electrocardiogram Date: 01/07/23 Findings: + NSR @ (70bpm) Normal EKG per cardio Chest X-Ray Date: 02/21/23 Findings: + NAD and + cardiomegaly FINDINGS: PA and lateral chest radiographs are compared to study dated 01/04/2016. The heart is enlarged noting atherosclerotic calcification of the thoracic aorta. The pulmonary vasculature is noncongested. Chronic interstitial thickening is similar to previous. The lungs and pleural spaces are clear noting bibasilar scarring/atelectasis. There is no pneumothorax. The skeletal structures are osteopenic. The bony thorax appears intact.
--- NOTE | 2023-06-13 13:58 | History & Physical Report ---
Date of Service June 13, 2023 Assessment & Plan (1) Arthritis of right hip: 82-year-old female 4 and half months out from left hip replacement with a progressive right hip pain and discomfort. She has failed conservative measures. She would like to have her right hip replaced. Very happy with the left hip. Plan: When taken the operating room do a right total hip replacement. The risk meant this procedure were explained the patient include but not limited to DVT PE infection neurological and vascular bleeding palm pain limb range of motion this is currently her symptoms incomplete relief of symptoms need for further surgery in future exceptor. Patient understands and desires to proceed informed consent is obtained. Plan on DVT prophylaxis including thigh-high teds SCDs, and aspirin. He is planned to be discharged home using [facility] home health program. (2) Status post total hip replacement, left: (3) DJD (degenerative joint disease) of knee: History of Present Illness Chief Complaint: . Right hip and leg pain Primary Care Provider: Diogo Hyde Patient is a 82-year-old female without long history of multiple joint problems. She has been through extensive conservative treatment in the past and had her left hip replaced 4 and half months ago and is done remarkably well from this. She continues to be limited by right hip and leg pain and discomfort. Describes groin pain thigh pain and stiffness. She has difficulty putting her shoes and socks on the right leg. Is gotten worse over the past 2 months. She continues to have some knee pain as well on both sides. The hip bothers her more than the knees. Her left hip is doing well. Allergies Allergy/AdvReac Type Severity Reaction Status Date / Time prednisone Allergy Severe Tachycardia Verified 06/05/23 15:05 pitavastatin [From Livalo] Allergy Intermediate leg pain Verified 06/05/23 15:05 and stomach problems procaine Allergy Intermediate Bradycardia Verified 06/05/23 15:05 rosuvastatin Allergy Intermediate leg pain Verified 06/05/23 15:05 and stomach problems atorvastatin Allergy Mild leg pain Verified 06/05/23 15:05 and stomach problems Penicillins AdvReac Intermediate Yeast Verified 06/05/23 15:05 infection Home Medications Medication Instructions Recorded Confirmed Type ezetimibe 10 mg tablet (Zetia) 5 mg PO QAM 06/28/21 06/05/23 History 3-in-1 Commode #1 ea 12/23/22 01/02/23 Rx 3-in-1 Commode #1 ea 12/23/22 01/02/23 Rx Wheeled Walker #1 ea 12/23/22 01/02/23 Rx Wheeled Walker #1 ea 12/23/22 01/02/23 Rx cephalexin 500 mg capsule 2,000 mg PO ONCE #4 caps 04/21/23 06/05/23 Rx acetaminophen 500 mg capsule 500 - 1,000 mg PO Q8H PRN Pain 06/05/23 06/05/23 History aspirin 81 mg tablet,delayed 81 mg PO QAM 06/05/23 06/05/23 History release (Jeffery Low Dose Aspirin) Past Med/Surg History Medical History History of kidney stones no surgery required/passed on own Hx of migraines Hypercholesteremia Osteoarthritis PMR (polymyalgia rheumatica) No longer on meds - only follows with PCP- stable Snoring No witnessed apnea - no hx of sleep study Surgical History H/O arthroscopic knee surgery bilat H/O bilateral salpingo-oophorectomy History of hysterectomy, supracervical History of tooth extraction History of total hip arthroplasty Left DAVID 01/22/23= Done under SAB- L3-4 after attempt at L4-5 (2 attempts) Hx of colonoscopy S/P repair of anterior cruciate ligament bilat Family History Father Bladder cancer Other No family history of adverse response to anesthesia Denies family history of Ovarian cancer Breast cancer Colorectal cancer Social History Smoking Status: Never smoker Second Hand Exposure: Yes (as kid); Do You Dip or Chew Tobacco: No; Hx Alcohol Use: No Preferred Language: Welsh Communication Ability: Effective 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 Physical Exam Physical examination the right hip reveals patient ambulates independently. He does seem to limp a bit on this right side. Leg lengths appear pretty equal. She had stiffness with hip motion. She internal rotation neutral which recreates pain. Negative straight leg raise. She is neurologically intact. ENMT external ear and nose normal, oropharynx normal Neck trachea midline, no thyromegaly Respiratory normal respiratory effort, lungs clear to auscultation Cardiovascular RRR, no murmur, no edema Gastrointestinal (Abdomen) normal bowel sounds, soft, nontender, no hepatosplenomegaly Results & Data Results & Data Laboratory Results . Diagnostic Findings . X-rays of the right hip show advanced right hip arthritis. Suspect some complete loss of the joint space. Osteophytes laterally. The left hip replaced looks to be in good position without problems. PG Care Time/CCT Total # of Minutes Spent Total Time Spent with Patient: Total time spent is greater than 50% in coordination of care (as documented) at patient's floor/unit and/or counseling patient: Coding Level of Care Code None Diagnoses Arthritis of right hip M16.11 Status post total hip replacement, left Z96.642 DJD (degenerative joint disease) of knee M17.10
[~2023-06-16 06:26] MED LIST changes: +dexAMETHasone**PF** 10 MG/ML VIAL IV SCH
--- NOTE | 2023-06-16 06:57 | History & Physical Bridge Note ---
Date of Service June 16, 2023 History & Physical Bridge Note I have examined the patient, reviewed the History & Physical and in the interval since the performance of the History & Physical I have noted the following changes of clinical significance: no changes noted
[2023-06-16] MEDS ORDERED: ONDANSETRON INJ 2 MG/ML 2 ML VIAL IV PRN ×2 (07:16→12:02)
[2023-06-16] MEDS ORDERED: fentaNYL citrate PF 100 MCG/2 ML VIAL IV PRN (07:16)
[2023-06-16] MEDS ORDERED: ATROPINE SULFATE 0.1 MG/ML 10ML SYR IV PRN (07:16)
[2023-06-16] MEDS ORDERED: ePHEDrine sulfate 50 MG/ML AMP IV PRN (07:16)
[2023-06-16] MEDS ORDERED: MIDAZOLAM HCL 1 MG/ML 2ML VIAL ONE (08:29)
[2023-06-16] MEDS ORDERED: PROPOFOL IV EMULSION 10 MG/ML 20 ML VIAL IV ONE ×2 (08:31→09:04)
[2023-06-16] MEDS ORDERED: LIDOCAINE 2% 2 ML VIAL/AMP(20MG/ML) INFIL ONE (08:31)
[2023-06-16] MEDS ORDERED: BUPIVACAINE/EPINEPHRINE 0.5% MPF 1:200,000 30 ML VIAL ONE (08:51)
[2023-06-16] MEDS ORDERED: KETAMINE 50 MG/5 ML SYRINGE ONE (09:05)
--- NOTE | 2023-06-16 10:39 | Operative Report ---
PG Post Operative Report Pre & Post Diagnosis Operation Date: 06/16/23 08:50 Pre-Op Diagnosis: Right Hip Degenerative Joint Disease Post-Op Diagnosis: Right Hip Degenerative Joint Disease I identified the patient and participated in the time-out.: Yes Procedure Operation Date: 06/16/23 08:50 Actual Procedures p Right Total Hip Arthroplasty(Right) - Nguyễn Wyatt MD Surgeon Nguyễn Wyatt MD Insurance Underwriter Sales Hosea Benítez PA-C Estimated Blood Loss 150 Findings Consistent with Post-Op Diagnosis Operative findings were advanced right hip arthritis. She had grade 4 [id number] disease of the femoral head and acetabulum. Fairly large acetabular osteophytes anteriorly. Moderate-sized joint effusion. Specimens Right femoral head sent for pathology Anesthesia Type Spinal MAC Complications none Indications Patient is an 82-year-old female has had a several year history of increasing bilateral hip pain discomfort that side gotten worse over time. She had her left hip replaced earlier this year and is done quite well from that. She continued be limited by right hip pain. X-rays show advanced hip arthritis. She elected proceed with total hip arthroplasty. Description of Procedure Operative implants consist of: 1. Biomet G7 size 54 mm acetabular shell. 2. 6.5 cancellous acetabular screws 1 at 35 mm length and 1 to 20 mm length. 3. [place] hole eliminator. 4. Highly cross-linked polyethylene liner with a 54 mm outer diameter and 36 mm inner diameter. 5. DePuy Karaya size 11 KLA femoral stem. 6. +1.5/36 mm ceramic articular ball. The patient was taken to the operating, identified, and placed on the operating table supine position. All contact areas were appropriately padded. IV antibiotics tried by anesthesia team. A spinal anesthetic and been implemented holding area. A Romero catheter was placed in sterile fashion. The patient then placed in the left lateral decubitus position. An axillary roll was placed. A Stulberg hip positioner was used for positioning. The right hip and leg were then prepped and draped in usual sterile fashion. A posterolateral approach to the right hip was then performed through a curvilinear incision centered over the greater trochanter. Sharp dissection was carried through subcutaneous tissue down below the IT band gluteal fascia the IT band gluteal fascia incised longitudinally in line with skin incision. The underlying greater bursa was then excised. The piriformis and external rotators along with the posterior hip joint capsule were then released and the posterior aspect of the hip as a single layer. Great care was taken throughout the procedure to protect sciatic nerve at all times. Hip was internally rotated and dislocated. Femoral neck osteotomy cut was made with Final Cut about 14 mm above the lesser trochanter. Femoral head was removed and sent for pathology. The femur was retracted anteriorly. Attention drawn the acetabulum. The acetabulum was excised. The pulmonary fat was excised. Sequential reaming the acetabular was then performed again with size 45 and progressing up to 53. A 54 reamer was used just slightly and a 54 mm Biomet acetabular shell was then placed in about 40 degrees lateral opening and 20 degrees of anteversion. I did review his several fairly large anterior osteophytes. A trial liner was placed. Attention drawn the femur. The proximal femur was entered with cookie-cutter followed by canal finder. I then broached beginning with size 8 and progressed up to a 10. The 10th it down pretty well but she seemed a little bit loose. Considering the x-rays and the other side looked a little bit undersized we elected broach with 11. Unfortunate I could not get this the whole way down. We left a little bit proud. I then trialed the hip. The +1.5 articular ball seem to provide appropriate leg lengths and soft tissue tension and was fully stable full extension and external rotation and flexion to 90 degrees internal rotation over [address] I elect to place these implants. Nupathe all trial implants were removed. [place] hole limiter was placed. Highly cross-linked polyethylene liner was placed. I sized 11 KLA femoral stem was impacted in position. Once again it was left 2 mm proud of the calcar cut due to the tightness. I did not want to force this down her bone. +1.5/36 mm ceramic articular ball was placed. Hip was located once again found to be stable. Attention drawn toward closing. The wound was irrigated coconuts pulsatile lavage solution. I did inject locally with 60 cc of half percent Marcaine with epinephrine. The posterior capsule and external rotators were then repaired through drill holes in the posterior trochanter with #2 Tycron suture. The IT band gluteal fascia then closed in 1 PDS suture running fashion for subcutaneous tissues then closed in 2 layers the deep layer #1 Vicryl suture and subcutaneous tissues with 2-0 Dexon suture in a buried interrupted fashion. Skin was closed skin wilmar. Leg was then cleaned and dried and sterile dressed with Xeroform, 4 fours, sterile ABD pad, foam tape was applied. The patient was then transferred to the recovery room in stable condition. Patient tolerated procedure well and there were no complications. Hosea Benítez, my physician biology research assistant, was present for the entire procedure. His assistance was essential and required for appropriate patient positioning, prepping and draping, surgical exposure, performing the technical details of the operation, placement the implants, closure of the wound, and placement of the sterile bandage. I attest to the content of the Intraoperative Record and any orders documented therein. Any exceptions are noted below.
--- NOTE | 2023-06-16 11:38 | XRay Report ---
XR hip 1V RT w pelvis HISTORY: 82 years-old Female IN PACU - Post Surgical right hip arthroplasty COMPARISON: 05/15/2023 TECHNIQUE: AP view the pelvis with crosstable lateral view of the right hip FINDINGS: Unremarkable appearance of the left hip arthroplasty. Satisfactory alignment of the right hip arthrop lasty. No acute fracture, dislocation or unexpected opaque foreign body. Lateral skin wilmar are pre sent along with expected postoperative soft tissue swelling with deep tissue air. Severe degeneration of the pubic symphysis. IMPRESSION: Right hip arthroplasty with expected postoperative changes. ACT 112: Negative or not required by law. The above report was generated using voice recognition software. It may contain grammatical, syntax o r spelling errors. Electronically signed by: Wilton Marlow M.D. 06/16/2023 11:36 AM
[2023-06-16] MEDS ORDERED: ALUMINUM/MAGNESIUM SUSP 30 ML UDC PO PRN (12:02)
[2023-06-16] MEDS ORDERED: HYDROmorphone INJ 0.5 MG/0.5 ML SYR IV PRN (12:02)
[2023-06-16] MEDS ORDERED: traMADol HCL 50 MG TABLET PO PRN (12:02)
[2023-06-16] MEDS ORDERED: bisacodyL 10 MG SUPP PR PRN (12:02)
[2023-06-16] MEDS ORDERED: NALOXONE HCL 0.4 MG/1 ML VIAL/CARP IV PRN (12:02)
[2023-06-16] MEDS ORDERED: MAGNESIUM HYDROXIDE SUSP 30 ML UDC PO PRN (12:02)
[2023-06-16] MEDS ORDERED: METOCLOPRAMIDE HCL INJ 5 MG/ML 2 ML VIAL IV PRN (12:02)
[2023-06-16] MEDS: SODIUM CHLORIDE 0.9% 1000ML 1,000 ML IV SCH ×2 (13:05→22:06)
[2023-06-16] MEDS: KETOROLAC TROMETHAMINE 15 MG/ML VIAL IV SCH ×2 (13:06→17:00)
[2023-06-16] MEDS: ACETAMINOPHEN 500 MG TAB PO SCH ×2 (13:27→20:42)
--- NOTE | 2023-06-16 13:36 | Anesthesiology Progress Note ---
Date of Service June 16, 2023 Anesthesia Post Procedure Vital Signs Vital Signs: Temp Pulse Pulse Pulse Resp BP BP 06/16/23 12:45 37.0 C 76 16 136/74 06/16/23 12:15 36.3 C L 67 16 153/75 H 06/16/23 11:45 36.4 C L 71 16 129/69 06/16/23 11:25 66 15 118/57 L 06/16/23 11:15 36.4 C L 67 21 111/60 06/16/23 10:55 65 17 104/51 L 06/16/23 10:45 65 20 100/62 06/16/23 11:05 67 17 119/60 06/16/23 10:35 69 19 111/56 L 06/16/23 10:29 36.5 C 67 11 L 103/47 L 06/16/23 06:46 36.8 C 72 20 147/70 H Pulse Ox O2 Del Method O2 Flow Rate 06/16/23 12:45 94 Room Air 06/16/23 12:15 95 Room Air 06/16/23 11:45 94 Room Air 06/16/23 11:25 94 Room Air 06/16/23 11:15 94 Room Air 06/16/23 10:55 99 Oxymask 3 06/16/23 10:45 100 Oxymask 3 06/16/23 11:05 98 Oxymask 2 06/16/23 10:35 99 Oxymask 5 06/16/23 10:29 94 Oxymask 7 06/16/23 06:46 95 Room Air Transfer of Care Handoff Completed per policy Notes Mental Status: alert / awake / arousable and participated in evaluation Patient Amnestic to Procedure: Yes Nausea / Vomiting: adequately controlled Pain: adequately controlled Airway Patency, RR, SpO2: stable & adequate BP & HR: stable & adequate Hydration State: stable & adequate Neuraxial Anesthesia: was administered and sensory block is resolving Anesthetic Complications: no major complications apparent and Pt Satisfied with anesthetic care
[2023-06-16] MEDS ORDERED: ACETAMINOPHEN 500 MG TAB PO SCH (14:00)
[2023-06-16] MEDS: ceFAZolin 2000MG 2,000 MG/15 ML SYR IV SCH (15:51)
[2023-06-16] MEDS: ASCORBIC ACID 500 MG TAB PO SCH (16:27)
[2023-06-16] MEDS ORDERED: TRANEXAMIC ACID / 0.7% NACL 1,000 MG/100 ML BAG IV SCH (16:30)
[2023-06-16] MEDS: DOCUSATE SODIUM 100 MG CAP PO SCH (20:41)
[2023-06-16] MEDS: ASPIRIN 81 MG ECTAB PO SCH (20:42)
[2023-06-16] MEDS: SENNA 8.6 MG TAB PO SCH (20:42)
[2023-06-16] MEDS ORDERED: SENNA 8.6 MG TAB PO SCH (21:00)
[2023-06-17] MEDS: KETOROLAC TROMETHAMINE 15 MG/ML VIAL IV SCH ×2 (00:07→05:35)
[2023-06-17] MEDS: ceFAZolin 2000MG 2,000 MG/15 ML SYR IV SCH (00:07)
[2023-06-17] MEDS: ACETAMINOPHEN 500 MG TAB PO SCH (05:35)
[2023-06-17 07:33] LABS: Basophils # (auto) 0.03 K/uL (0-0.2); Basophils % (auto) 0.2 %; Eosinophils # (auto) 0.01 K/uL (0-0.50); Eosinophils % (auto) 0.1 %; Hematocrit (blood only) 35.3 % (37.0-47.0); Hemoglobin 12.1 g/dl (12.0-16.0); Immature Granulocytes # (auto) 0.05 K/uL (0.01-0.20); Immature Granulocytes % (auto) 0.4 %; Lymphocytes # (auto) 1.31 K/uL (1.2-3.4); Lymphocytes % (auto) 10.7 %; Mean Corpuscular Hemoglobin 31.4 pg (25.0-34.0); Mean Corpuscular Hgb Conc 34.3 g/dL (32.0-36.0); Mean Corpuscular Volume 91.7 fL (80.0-100.0); Monocytes % (auto) 7.3 %; Neutrophils # (auto) 9.98 K/uL (1.40-6.50); Neutrophils % (auto) 81.3 %; Platelet Count 234 K/uL (130-400); RDW Coefficient of Variation 13.2 % (11.5-14.5); RDW Standard Deviation 44.4 fL (36.4-46.3); Red Blood Count 3.85 M/uL (4.20-5.40); White Blood Count 12.28 K/ul (4.8-10.8)
[2023-06-17 07:58] LABS: BUN Creatinine Ratio 26.4 (10-20); Calcium 8.9 mg/dl (8.6-10.3); Creatinine Clr Calc Pharmacy 56.9 ml/min; Est GFR (African American) 72.9 ml/min; Est GFR (Non-African American) 62.9 ml/min; Potassium 3.5 mmol/L (3.5-5.1)
[2023-06-17] MEDS ORDERED: dexAMETHasone 10 MG in SYRINGE 0 ML IV SCH (08:00)
[2023-06-17] MEDS: ASPIRIN 81 MG ECTAB PO SCH (08:16)
[2023-06-17] MEDS: SENNA 8.6 MG TAB PO SCH (08:18)
[2023-06-17] MEDS: DOCUSATE SODIUM 100 MG CAP PO SCH (08:18)
[2023-06-17] MEDS: ASCORBIC ACID 500 MG TAB PO SCH (08:18)
[2023-06-17] MEDS ORDERED: EZETIMIBE 10 MG TABLET PO SCH (09:00)
[2023-06-17] MEDS ORDERED: MULTIVITAMIN TAB PO SCH (09:00)
--- NOTE | 2023-06-17 09:18 | Orthopedic Progress Note ---
Date of Service June 17, 2023 Assessment & Plan (1) Status post total hip replacement, right: 82-year-old female postop day 1 from right total hip placement. She is doing remarkably well. Pain is controlled. She gets along quite well. Hip is located. She is neurologically intact. She is hoping to go home. Plan: 1. DVT prophylaxis including thigh-high teds SCDs and aspirin twice a day. 2. PT OT. Weight-bear as tolerated right total hip protocol. 3. Pain control doing well with current pain regimen. 4. Disposition plan to discharge home with some home health later today. Subjective . 82-year-old female postop day 1 from a right total hip replacement. She is doing well. Pain is very well controlled. A good evening. Therapy has been going well. No chest pain or shortness of breath. Not feeling dizzy or lightheaded. Hoping to go home. Review of Systems All systems reviewed & are unremarkable except as noted in HPI & below. Physical Exam . Physical exam shows pleasant elderly female. She is walking around the halls with a physical therapist when I visited today. Dressings clean dry and intact. Thigh is soft and supple. Hip is located. Leg lengths are equal. She is neurologically intact. Respiratory normal respiratory effort, lungs clear to auscultation Cardiovascular RRR, no murmur, no edema Gastrointestinal (Abdomen) normal bowel sounds, soft, nontender, no hepatosplenomegaly Results & Data Results & Data Laboratory Results . Hemoglobin is 12.1 hematocrit 35.3. Electrolytes are stable Diagnostic Findings . PG Care Time/CCT Total # of Minutes Spent Total Time Spent with Patient: Total time spent is greater than 50% in coordination of care (as documented) at patient's floor/unit and/or counseling patient: Coding Level of Care Code 63362 Post Operative Follow-Up Diagnoses Status post total hip replacement, right Z96.641
--- NOTE | 2023-06-21 14:18 | Discharge Summary ---
Date of Service June 21, 2023 Discharge Data Procedures Performed Operation Date: 06/16/23 08:50 Actual Procedures p Right Total Hip Arthroplasty(Right) - Nguyễn Wyatt MD Hospital Course (1) Status post total hip replacement, right: This is a 82 year old patient admitted on 06/16/23 and underwent total hip arthroplasty. She tolerated the procedure well and there were no complications. Transferred to the PACU post op and later to the orthopedic floor for further care. She was given ancef for antibiotic prophylaxis. She was also given TRISHA stockings, SCDs, and aspirin for DVT prophylaxis. Hemoglobin, hematocrit, and vital signs were monitored during her hospital stay and remained stable. Did not require any blood transfusions. There were no complications during her hospital stay. By post op day #1 the patient was tolerating a regular diet, pain was reasonably controlled with oral pain medicine, and she was participating in physical therapy. On post op day #1 the patient was discharged home and set up with home health care. She was given printed discharge instructions including prescriptions for extra strength tylenol, aspirin, ketorolac, zofran, and senokot. Continue hip precautions. Continue physical therapy, weight bearing as tolerated. Continue TRISHA stockings. Follow up approximately 2 weeks post op or sooner if there are problems or concerns. Coding Level of Care Code None Diagnoses Status post total hip replacement, right Z96.641
== END 2023-06-17 13:54 | disposition home health service (06) ==
LOC: 3W 06:26 → ASU 06:26
DX: E78.5 Hyperlipidemia, unspecified; Z88.0 Allergy status to penicillin; Z88.8 Allergy status to other drugs, medicaments and biological substances; M16.11 Unilateral primary osteoarthritis, right hip; M35.3 Polymyalgia rheumatica; Z96.642 Presence of left artificial hip joint; Z88.4 Allergy status to anesthetic agent; Z79.82 Long term (current) use of aspirin

== ENCOUNTER 2024-01-05 08:54 | Observation (INO) ==
--- NOTE | 2024-01-05 09:43 | Emergency Department Note ---
Impression & Plan Acute cholecystitis ED Provider Note Provider: Ruben Tidwell MD DATE OF SERVICE: 01/05/2024 CHIEF COMPLAINT: Right-sided abdominal pain nausea and vomiting HISTORY OF PRESENT ILLNESS: Patient is a 83-year-old female past medical history of arthritis presenting here with today reporting 2 days ago on Friday developing some pain in the right upper quadrant of the abdomen some radiation to the back. Worse with food intake. Nausea and vomiting developing overnight. Stool this morning but denies diarrhea. Denies urinary symptoms. Denies left- sided abdominal pain. Did try some Tylenol last evening to try to help her sleep minimally effective. No trauma reported. No fevers reported. No history of abdominal surgeries reported. PAST MEDICAL HISTORY: As noted above MEDICATIONS: Reviewed home medications SOCIAL HISTORY: , [place] PHYSICAL EXAM: GENERAL: alert and oriented appears uncomfortable on stretcher Head: normocephalic and atraumatic EYES: No injection, discharge or icterus. NECK: Trachea midline. ENT: Mucous membranes pink and moist. LUNGS: Airway patent. No retractions. Breath sounds clear HEART: Regular rate and rhythm. No chest wall tenderness ABDOMEN: Soft nondistended with significant right upper quadrant tenderness. No significant lower abdominal tenderness or left-sided tenderness. No tenderness in the right flank or CVA region. SKIN: Acyanotic, warm, dry, without rashes EXTREMITIES: Without swelling, tenderness or deformity NEUROLOGICAL: No focal deficits. No aphasia. No facial droop or slurred speech. Ambulatory. EK bpm normal sinus rhythm. Right bundle branch block noted. No acute ST segment elevation or depression with a QTc of 468. No PVC. CONTINUOUS CARDIAC MONITORING: was ordered and showed a heart rate of 70s to 80s bpm in normal sinus rhythm Patient's laboratory studies and imaging reviewed. Differential includes Appendicitis, infections, diverticulitis, UTI, obstruction, mesenteric ischemia, aortic pathology, inflammatory bowel disease, renal colic, PUD, pancreatitis, biliary pathology, hernia, volvulus, constipation, as well as other pathologies. IMPRESSION/MEDICAL DECISION MAKING: Seen in room with . Significant discomfort in the right upper quadrant and tender here. Worse with food. Question possible gallbladder pathology. Not significant tender in the back. Not really tender in the lower abdomen much more in the right upper quadrant. Will obtain ultrasound and plan for CT depending on the results of this and blood work. Given some fentanyl Zofran and IV fluids here initially for symptom control. EKG and troponin sent but seems less like to be cardiac based on location. Not significantly hypoxic or tachypneic and symptoms seem more GI related and I doubt this represents pneumonia, pneumothorax, or PE. Location the pain also does not seem that consistent with kidney stone, volvulus, or obstruction. Lower suspicion for appendicitis, volvulus, or diverticulitis again based on the history and exam here. Blood work without anemia or thrombocytopenia but a leukocytosis of 13.7 is noted. No significant electrolyte abnormality or signs of renal dysfunction. No lipase or LFT abnormalities and does not seem consistent with pancreatitis, hepatitis, or obstructive biliary pathology. Normal troponin. EKG reassuring. IV did fail requiring replacement. Slight improvement with fentanyl here. Ultrasound concerning for acute cholecystitis. Discussed with patient and given minimal intolerance to penicillin a dose of Zosyn ordered for antibiotic coverage. Will hold on CT and discussed with general surgery.s Discussed with Dr. Odell who recommended medical admission and will evaluate for surgical intervention more likely tomorrow. Patient updated. Hospitalist contacted. DIAGNOSIS: Acute cholecystitis DISPOSITION: Hospitalist will evaluate Discussed return precautions and advised follow up. Past Med/Surg History Medical History (Updated 01/05/24 @ 12:25 by THIERRY Sue) Hypercholesteremia Encounter for pre-operative examination Hx of migraines History of kidney stones no surgery required/passed on own Osteoarthritis Snoring No witnessed apnea - no hx of sleep study PMR (polymyalgia rheumatica) No longer on meds - only follows with PCP- stable Surgical History Status post total hip replacement, right Status post right hip replacement History of total hip arthroplasty Left DAVID 01/22/23= Done under SAB- L3-4 after attempt at L4-5 (2 attempts) History of tooth extraction History of hysterectomy, supracervical H/O bilateral salpingo-oophorectomy S/P repair of anterior cruciate ligament bilat H/O arthroscopic knee surgery bilat Hx of colonoscopy Family History Father Bladder cancer Other No family history of adverse response to anesthesia Denies family history of Ovarian cancer Prostate cancer Myocardial infarction Breast cancer Colorectal cancer Social History Smoking Status: Never smoker Second Hand Exposure: Yes (as kid); Do You Dip or Chew Tobacco: No; Hx Alcohol Use: No Preferred Language: Wolof Communication Ability: Effective Patent Searcher Required: No Beliefs That Will Affect Care: None Current Living Situation: Spouse Feels Safe at Home: Yes Assistive Devices: Walker Allergies Allergies Allergy/AdvReac Type Severity Reaction Status Date / Time prednisone Allergy Severe Tachycardia Verified 01/05/24 12:44 pitavastatin [From Livalo] Allergy Intermediate leg pain Verified 01/05/24 12:44 and stomach problems procaine Allergy Intermediate Bradycardia Verified 01/05/24 12:44 rosuvastatin Allergy Intermediate leg pain Verified 01/05/24 12:44 and stomach problems atorvastatin Allergy Mild leg pain Verified 01/05/24 12:44 and stomach problems Penicillins AdvReac Intermediate Yeast Verified 01/05/24 12:44 infection Home Meds Home Medications Medication Instructions Recorded Confirmed acetaminophen 500 mg tablet 1,000 mg PO TID pain 01/05/24 01/05/24 (Tylenol Extra Strength) cholecalciferol (vitamin D3) 50 50 mcg PO DAILY 01/05/24 01/05/24 mcg (2,000 unit) tablet (Vitamin D3) coenzyme Q10 100 mg capsule 100 mg PO DAILY 01/05/24 01/05/24 (CoQ-10) cranberry 400 mg capsule 400 mg PO DAILY 01/05/24 01/05/24 magnesium oxide 400 mg PO DAILY 01/05/24 01/05/24 omega 5-dgw-gfi-fish oil 1,200 mg 1 cap PO DAILY 01/05/24 01/05/24 (144 mg-216 mg) capsule (Fish Oil) potassium citrate 99 mg capsule 99 mg PO DAILY 01/05/24 01/05/24 vitamin E mixed 400 unit tablet 400 unit PO DAILY 01/05/24 01/05/24 Previous Rx's Medication Instructions Recorded 3-in-1 Commode #1 ea 12/23/22 3-in-1 Commode #1 ea 12/23/22 Wheeled Walker #1 ea 12/23/22 Wheeled Walker #1 ea 12/23/22 Results & Data (ED) Vital Signs Vital Signs - 24 hr 01/05/24 09:04 01/05/24 09:29 01/05/24 09:30 Temperature 36.1 C L Temperature Source Temporal Artery Scan Pulse Rate 80 77 Pulse Rate [Apical] 74 Pulse Rate from SpO2 Sensor Pulse Rhythm Pulse Rhythm [Apical] Regular Pulse Strength [Apical] Normal Respiratory Rate 16 23 18 Respiratory Effort / Characteristics Non-Labored Non-Labored Spontaneous Respiratory Depth Normal Normal Respiratory Pattern Regular Blood Pressure 151/79 H Blood Pressure [Left Arm] Blood Pressure Mean 103 Blood Pressure Mean [Left Arm] Blood Pressure Position [Left Arm] Sitting Pulse Oximetry 98 96 Oxygen Delivery Method Room Air Room Air Sepsis Recent Fever Within 48 Hours No Sepsis New/Unexplained Change in Mental Status N/A Sepsis Action Taken by Nursing No Action Required 01/05/24 09:30 01/05/24 09:48 01/05/24 09:48 Temperature Temperature Source Pulse Rate 75 75 77 Pulse Rate [Apical] Pulse Rate from SpO2 Sensor Pulse Rhythm Regular Pulse Rhythm [Apical] Pulse Strength [Apical] Respiratory Rate 15 21 Respiratory Effort / Characteristics Respiratory Depth Respiratory Pattern Blood Pressure Blood Pressure [Left Arm] Blood Pressure Mean Blood Pressure Mean [Left Arm] Blood Pressure Position [Left Arm] Pulse Oximetry 98 Oxygen Delivery Method Room Air Sepsis Recent Fever Within 48 Hours Sepsis New/Unexplained Change in Mental Status Sepsis Action Taken by Nursing 01/05/24 10:00 01/05/24 10:14 01/05/24 10:14 Temperature Temperature Source Pulse Rate 72 75 Pulse Rate [Apical] Pulse Rate from SpO2 Sensor 73 75 Pulse Rhythm Pulse Rhythm [Apical] Pulse Strength [Apical] Respiratory Rate 26 H 23 Respiratory Effort / Characteristics Respiratory Depth Respiratory Pattern Blood Pressure 176/75 H Blood Pressure [Left Arm] Blood Pressure Mean 100 Blood Pressure Mean [Left Arm] Blood Pressure Position [Left Arm] Pulse Oximetry 96 96 Oxygen Delivery Method Sepsis Recent Fever Within 48 Hours Sepsis New/Unexplained Change in Mental Status Sepsis Action Taken by Nursing 01/05/24 10:15 01/05/24 10:30 01/05/24 10:30 Temperature Temperature Source Pulse Rate 81 Pulse Rate [Apical] 80 Pulse Rate from SpO2 Sensor 80 Pulse Rhythm Pulse Rhythm [Apical] Regular Pulse Strength [Apical] Normal Respiratory Rate 18 17 Respiratory Effort / Characteristics Non-Labored Spontaneous Respiratory Depth Normal Respiratory Pattern Regular Blood Pressure 167/88 H Blood Pressure [Left Arm] 176/75 H Blood Pressure Mean 114 Blood Pressure Mean [Left Arm] 108 Blood Pressure Position [Left Arm] Sitting Pulse Oximetry 93 72 L Oxygen Delivery Method Sepsis Recent Fever Within 48 Hours Sepsis New/Unexplained Change in Mental Status Sepsis Action Taken by Nursing 01/05/24 11:00 01/05/24 11:30 01/05/24 11:30 Temperature Temperature Source Pulse Rate 72 Pulse Rate [Apical] 70 Pulse Rate from SpO2 Sensor 72 Pulse Rhythm Pulse Rhythm [Apical] Regular Pulse Strength [Apical] Normal Respiratory Rate 18 19 Respiratory Effort / Characteristics Non-Labored Spontaneous Respiratory Depth Normal Respiratory Pattern Regular Blood Pressure 156/67 H Blood Pressure [Left Arm] 111/71 Blood Pressure Mean 111 Blood Pressure Mean [Left Arm] 84 Blood Pressure Position [Left Arm] Pulse Oximetry 94 93 Oxygen Delivery Method Room Air Sepsis Recent Fever Within 48 Hours Sepsis New/Unexplained Change in Mental Status Sepsis Action Taken by Nursing 01/05/24 12:00 01/05/24 12:00 01/05/24 12:30 Temperature Temperature Source Pulse Rate 75 76 Pulse Rate [Apical] Pulse Rate from SpO2 Sensor 74 76 Pulse Rhythm Pulse Rhythm [Apical] Pulse Strength [Apical] Respiratory Rate 19 15 Respiratory Effort / Characteristics Respiratory Depth Respiratory Pattern Blood Pressure 143/73 H Blood Pressure [Left Arm] Blood Pressure Mean 101 Blood Pressure Mean [Left Arm] Blood Pressure Position [Left Arm] Pulse Oximetry 91 97 Oxygen Delivery Method Sepsis Recent Fever Within 48 Hours Sepsis New/Unexplained Change in Mental Status Sepsis Action Taken by Nursing 01/05/24 12:30 01/05/24 13:54 Temperature Temperature Source Pulse Rate 78 Pulse Rate [Apical] Pulse Rate from SpO2 Sensor Pulse Rhythm Pulse Rhythm [Apical] Pulse Strength [Apical] Respiratory Rate Respiratory Effort / Characteristics Respiratory Depth Respiratory Pattern Blood Pressure 144/78 H Blood Pressure [Left Arm] Blood Pressure Mean 101 Blood Pressure Mean [Left Arm] Blood Pressure Position [Left Arm] Pulse Oximetry Oxygen Delivery Method Sepsis Recent Fever Within 48 Hours Sepsis New/Unexplained Change in Mental Status Sepsis Action Taken by Nursing Laboratory Data 01/05/24 09:49 01/05/24 09:49 Lab Results 01/05/24 01/05/24 Range/Units 09:49 Unknown WBC 13.70 H (4.8-10.8) K/ul RBC 4.42 (4.20-5.40) M/uL Hgb 13.2 (12.0-16.0) g/dl Hct 38.7 (37.0-47.0) % MCV 87.6 (80.0-100.0) fL MCH 29.9 (25.0-34.0) pg MCHC 34.1 (32.0-36.0) g/dL RDW Std Deviation 41.2 (36.4-46.3) fL RDW Coeff of Ken 12.8 (11.5-14.5) % Plt Count 281 (130-400) K/uL MPV 9.5 (9.4-12.4) fL Immature Gran % (Auto) 0.4 % Neut % (Auto) 92.8 % Lymph % (Auto) 3.6 % [place] % (Auto) 2.8 % Eos % (Auto) 0.0 % Baso % (Auto) 0.4 % Neut # (Auto) 12.71 H (1.40-6.50) K/uL Lymph # (Auto) 0.49 L (1.20-3.40) K/uL [place] # (Auto) 0.39 (0.11-0.59) K/uL Eos # (Auto) 0.00 (0.00-0.50) K/uL Baso # (Auto) 0.05 (0.00-0.20) K/uL Immature Gran # (Auto) 0.06 (0.01-0.20) K/uL PT 11.0 (9.0-12.0) Seconds INR 1.0 (0.9-1.1) Sodium 137 (136-145) mmol/L Potassium 3.5 (3.5-5.1) mmol/L Chloride 104 (98-107) mmol/L Carbon Dioxide 24 (21-32) mmol/L Anion Gap 9 (3-11) BUN 15 (6-23) mg/dl Creatinine 0.60 (0.6-1.2) mg/dl Est Cr Clr Drug Dosing 82.7 ml/min Est GFR ( Amer) 99.1 ml/min Est GFR (Non-Af Amer) 85.5 ml/min BUN/Creatinine Ratio 25.0 H (10-20) Glucose 157 H (70-99(Fasting)) mg/dl Estimat Average Glucose 111 mg/dl Hemoglobin A1c 5.5 (4.5-5.6) % Lactate 1.5 (0.4-2.0) mmol/L Calcium 9.1 (8.6-10.3) mg/dl Phosphorus 2.1 L (2.5-4.9) mg/dl Magnesium 1.9 (1.7-2.4) mg/dl Total Bilirubin 0.6 (0.2-1.0) mg/dl AST 19 (13-39) U/L ALT 12 (7-52) U/L Alkaline Phosphatase 72 (34-104) U/L Troponin I High Sens 5.2 (0-14) pg/ml Total Protein 7.2 (6.0-8.3) gm/dl Albumin 4.0 (3.4-5.0) gm/dl Globulin 3.2 (2.5-4.0) gm/dl Albumin/Globulin Ratio 1.3 (0.9-2) Lipase 14 (11-82) U/L Urine Color Yellow Urine Appearance Clear (Clear) Urine pH 8.0 H (4.5-7.5) Ur Specific [place] 1.018 (1.000-1.030) Urine Protein Trace H (Negative) Urine Glucose (UA) Negative (Negative) Urine Ketones 1+ H (Negative) Urine Blood Trace H (Negative) Urine Nitrite Negative (Negative) Urine Bilirubin Negative (Negative) Urine Urobilinogen Negative (Negative) Ur Leukocyte Esterase Negative (Negative) Urine WBC (Auto) 1-5 (0-5) /hpf Urine RBC (Auto) 10-30 H (0-4) /hpf U Hyaline Cast (Auto) 0 (0-5) /lpf U Epithel Cells (Auto) 10-20 H (0-5) /lpf Urine Bacteria (Auto) Negative (Negative) SARS-CoV-2, RNA, NAAT NEGATIVE (NEGATIVE) Administered Medications Discontinued Medications Fentanyl Citrate (Fentanyl Citrate Pf 100 Mcg/2 Ml Vial) 50 mcg IV NOW STA Stop: 01/05/24 09:24 Last Admin: 01/05/24 09:50 Dose: 50 mcg Documented By: SERA Sodium Chloride (Nss) 1,000 mls @ 999 mls/hr IV .Q1H1M ONE Stop: 01/05/24 10:23 Last Admin: 01/05/24 09:50 Dose: 999 mls/hr Documented By: SERA Piperacillin Sod/Tazobactam Sod (Zosyn) 4.5 gm in 100 mls @ 200 mls/hr IV NOW ONE Stop: 01/05/24 12:07 Last Admin: 01/05/24 12:24 Dose: 200 mls/hr Documented By: ELISHA Ondansetron HCl (Ondansetron Inj 2 Mg/Ml 2 Ml Vial) 4 mg IV NOW STA Stop: 01/05/24 09:24 Last Admin: 01/05/24 09:50 Dose: 4 mg Documented By: SERA Imaging Data Radiologist's Impression: Gallbladder Ultrasound 01/05/24 09:23 US gallbladder CLINICAL HISTORY: Pain, nausea TECHNIQUE: Multiple real-time sonographic images of the right upper quadrant were obtained. Comparison: None available at the time of this dictation. FINDINGS: The liver is diffusely homogenous with normal contour and echogenicity. No focal mass lesions are seen. No intrahepatic ductal dilatation is seen. Gallbladder wall is thickened measuring 0.4 to 1.5 cm with stones noted. Free fluid is seen adjacent to the gallbladder. A sonographic Lambert's sign was elicited by the composite bond worker. The common duct measures 0.8 cm in diameter at the level of the hepatic artery. The visualized portions of the pancreas appear normal. The right kidney shows normal echogenicity, cortical thickness and renal contour. The right kidney shows no evidence of hydronephrosis or mass. No ascites or free fluid is seen in Suarez's pouch. IMPRESSION: Findings compatible with acute cholecystitis. ACT 112: Negative or not required by law. Electronically signed by: Rajendra Ring M.D. 01/05/2024 11:27 AM Discharge Plan Visit Data Chief Complaint: Flank Pain Stated Complaint: THROWING UP/PAIN IN R SIDE EXT TO SHOULDER PAIN ED Provider: Ruben Tidwell Discharge Problem: Acute cholecystitis Patient Disposition: Being Evaluated by Hospitalist Forms Stand Alone Forms: [employer] Prescriptions Prescriptions: No Action (DME) Wheeled Walker Misc See Rx Instructions .MEDSUPPLY Qty: 1 0RF Rx Instructions: As directed (DME) 3-in-1 Commode Misc See Rx Instructions .MEDSUPPLY Qty: 1 0RF Rx Instructions: As directed (DME) Wheeled Walker Misc See Rx Instructions .MEDSUPPLY Qty: 1 0RF Rx Instructions: As directed (DME) 3-in-1 Commode Misc See Rx Instructions .MEDSUPPLY Qty: 1 0RF Rx Instructions: As directed cranberry 400 mg Capsule 400 mg PO DAILY Rx Instructions: administer with a meal coenzyme Q10 [CoQ-10] 100 mg Capsule 100 mg PO DAILY cholecalciferol (vitamin D3) [Vitamin D3] 50 mcg (2,000 unit) Tablet 50 mcg PO DAILY omega 0-xaj-xos-fish oil [Fish Oil] 1,200 (144-216) mg Capsule 1 cap PO DAILY magnesium oxide 400 mg magnesium Capsule 400 mg PO DAILY vitamin E mixed 400 unit Tablet 400 unit PO DAILY potassium citrate 99 mg Capsule 99 mg PO DAILY acetaminophen [Tylenol Extra Strength] 500 mg tablet 1,000 mg PO TID Rx Instructions: Take 3 times per day to lessen pain. Referrals Referrals: Diogo Hyde PA-C [Primary Care Provider] -
[2024-01-05] MEDS: fentaNYL citrate PF 100 MCG/2 ML VIAL IV STA (09:50)
[2024-01-05] MEDS: SODIUM CHLORIDE 0.9% 1,000 ML IV ONE (09:50)
[2024-01-05] MEDS: ONDANSETRON INJ 2 MG/ML 2 ML VIAL IV STA (09:50)
[2024-01-05 10:03] LABS: Hematocrit (blood only) 38.7 % (37.0-47.0); Hemoglobin 13.2 g/dl (12.0-16.0); Mean Corpuscular Hemoglobin 29.9 pg (25.0-34.0); Mean Corpuscular Hgb Conc 34.1 g/dL (32.0-36.0); Mean Corpuscular Volume 87.6 fL (80.0-100.0); Mean Platelet Volume 9.5 fL (9.4-12.4); Platelet Count 281 K/uL (130-400); RDW Coefficient of Variation 12.8 % (11.5-14.5); RDW Standard Deviation 41.2 fL (36.4-46.3); Red Blood Count 4.42 M/uL (4.20-5.40)
[2024-01-05 10:17] LABS: Basophils # (auto) 0.05 K/uL (0.00-0.20); Basophils % (auto) 0.4 %; Immature Granulocytes # (auto) 0.06 K/uL (0.01-0.20); Immature Granulocytes % (auto) 0.4 %; Lymphocytes # (auto) 0.49 K/uL (1.20-3.40); Lymphocytes % (auto) 3.6 %; Monocytes # (auto) 0.39 K/uL (0.11-0.59); Monocytes % (auto) 2.8 %; Neutrophils # (auto) 12.71 K/uL (1.40-6.50); Neutrophils % (auto) 92.8 %
[2024-01-05 10:23] LABS: Albumin Globulin Ratio 1.3 (0.9-2); Bilirubin,Total 0.6 mg/dl (0.2-1.0); Calcium 9.1 mg/dl (8.6-10.3); Creatinine Clr Calc Pharmacy 82.7 ml/min; Est GFR (African American) 99.1 ml/min; Est GFR (Non-African American) 85.5 ml/min; Globulin 3.2 gm/dl (2.5-4.0); Potassium 3.5 mmol/L (3.5-5.1); Total Protein 7.2 gm/dl (6.0-8.3)
[2024-01-05 10:28] LABS: Troponin I High Sensitivity 5.2 pg/ml (0-14)
--- OUTSIDE RECORDS SUMMARY | 2024-01-05 10:39 | External Medical Summary | Continuity of Care Document ---
Author Name Unknown Organization [facility] er, Address [address] [place] [address] Phone [phone] Care Team Providers Care Senior Controls Analyst Name Role Phone Meli Peters MD Care Team Information Healthcare Educator [phone] Problems Active Problems Provider Date Polymyalgia rheumatica Diogo Hyde PA-C O nset: 08/18/2017 Pure hyperglyceridemia Diogo Hyde PA-C O nset: 08/18/2017 Osteoporosis Diogo Hyde PA-C Onset: 1 Mixed hyperlipidemia Diogo Hyde PA-C Ons et: 2017 Acute thyroiditis Diogo Hyde PA-C Onset: 2017 Adult health examination Diogo Hyde PA-C Onset: 01/19/2018 Hypothyroidism Diogo Hyde PA-C Onset: 0 01/19/2018 Aortic valve regurgitation Tony Perla JR, MD Onset: 05/06/2018 Note: mild-moderate Screening for malignant neoplasm of colon Diogo Hyde PA-C Onset: 09/24/2018 Malaise and fatigue Diogo Hyde PA-C Onse t: 04/23/2019 Nontoxic single thyroid nodule Diogo Hyde PA-C Onset: 04/23/2019 Polyosteoarthritis, unspecified Diogo chapman PA-C Onset: 04/23/2019 Multiple skin tags on neck ALONSO Mckay Onset: 10/20/2019 Social History Type Date Description Comments Sex Unknown Tobacco Use Reviewed: 06/11/23 Never Smoked Cigarette s Tobacco Use Reviewed: 06/11/23 Never Smoked Cigars Tobacco Use Reviewed: 06/11/23 Never Smoked A Pipe Smoking Status Reviewed: 06/25/23 Never Smoked A Pipe Smokeless Tobacco 06/11/2023 Never Used Smokeless To bacco ETOH Use Denies alcohol use Recreational Drug Use Denies Drug Use Allergies and adverse reactions Active Allergies Criticality Reaction | Severity Comments Date Penicillin Unable to assess criticality 08/18/2017 Novocaine Unable to assess criticality bradycardia 08/18/2017 Prednisone Unable to assess criticality Insomni a 01/19/2018 Azithromycin Unable to assess criticality Diarr hea 01/19/2018 Meloxicam Unable to assess criticality 09/30/2019 Medications Active Medications SIG Qnty Indications Order ing Provider Date Meclizine HKY07lh Tablets 1 by mouth every 6 hours as needed dizziness 45tabs Zuri Bailey MD 10/31/2023 Aspirin Adult Low Vxxz37oh Tablets DR 1 by mouth every day Unknown 06/21/2023 Tylenol Extra Dmvcjvsn089pn Tablets 2 by mouth three times a day Unknown 06/21/2023 Metamucil0.52gm Capsules one capsule three daily with full glass of water 270caps Zuri Bailey MD 12/13/2022 Epipen 2-Pak0.3mg/0.3ML Solution Auto-Inject use as directed. ok for generic. 2units Zuri Bailey MD 04/03/2022 Medications Administered in Office Medication SIG Qnty Indications Ordering Provider Date Injection Dexamethasone Sodium Phosphate, 1 MGInjection Diogo Hyde PA-C 03/17 Injection Kenalog 10 MG [facility] [id number] Amarilys Portillo PA-C 11/21/2017 Injection Dexamethasone Sodium Phosphate, 1 MGInjection Amarilys Portillo PA-C 03/2018 Rocephin Inj 250 MGInjection Joel Portillo PA-C 11/21/2017 Immunizations CPT Code Status Date Vaccine Lot # [id number] Given 10/23/2022 Influenza Vacci ne-Administered at another facility 66861 Given 02/23/2021 Moderna Sars-Co v-2 (Cov-19) vacc,100 mcg/ 0.5 mL 12Y+EMR Doc Only 92660 Given 01/25/2021 Moderna Sars-Co v-2 (Cov-19) vacc,100 mcg/ 0.5 mL 12Y+EMR Doc Only 57268 Given 09/04/2020 Influenza Vaccine High Do se 0.5ML Age 65 & > [id number] U-FLU Given 08/19/2019 Influenza,Unspecified 38517 Given 08/19/2019 Influenza Vacci ne, Inactivated, Subunit, Adjuvanted, For Intrmusc [id number] U-FLU Given 08/21/2018 Influenza,Unspecified 99389 Given 08/21/2018 Influenza Virus Vaccine, Quadrivalent (Cciiv4), Derived From Cell 66592 Given 08/21/2018 Influenza Virus Vaccine, Quadrivalent, Im Use [id number] 25016 Given 01/20/2018 Tdap (Tetanus, diphtheria & acel. pertussis) Adacel or Boostrix [id number] 23399 Given 2017 Pneumococcal Conjugate-Pr evnar 13 [id number] 16478 Given 2017 Pneumococcal Conjugate-Pr evnar 13 [id number] 25333 Given 08/15/2014 Zostavax Vaccine 83160 Given 02/04/2014 Pneumococcal Vaccine/Pneu movax 23 09130 Refused 11/21/2017 Influenza Vacci ne Quadrivalent Preser/Antibiotic Free Im Use Vital Signs Date Vital Result Comment 06/25/2023 12:36pm BP Systolic 122 mmHg BP Diastolic 72 mmHg Body Temperature 97.7 F Heart Rate 82 /min Respiratory Rate 14 /min Weight 171.00 lb Weight 77.566 kg Height 68 inches 5'8" BMI (Body Mass Index) 26.0 kg/m2 O2 % BldC Oximetry 95 % [place] Body Weight 140 lb 06/11/2023 9:23am BP Systolic 112 mmHg BP Diastolic 70 mmHg Body Temperature 97.8 F Heart Rate 77 /min Respiratory Rate 16 /min Weight 183.38 lb Weight 83.179 kg Height 68 inches 5'8" BMI (Body Mass Index) 27.9 kg/m2 O2 % BldC Oximetry 95 % [place] Body Weight 140 lb Results Test Acquired Date Facility Test Result H/L Range N ote Comp. Met 12/29/2023 [facility]. [address] [place] [address] [phone] Glucose 81 mg/dL 70-110 BUN 19 mg/dL 6-25 Creatinine 0.8 mg/dL 0.5-1.2 Sodium 143 mEq/L 135-145 Potassium 3.6 mEq/L 3.5-5.0 Chloride 104 mEq/L 95-107 Co-2 29 mEq/L 24-31 Alk Phos 69 IU/L 43-122 Alt(SGPT) 9 IU/L Low 10-40 Ast(Sgot) 11 IU/L 3-42 T.Bilirubin 0.7 mg/dL 0.1-1.3 Calcium 9.2 mg/dL 8.5-10.6 Tot.Protein 6.4 g/dL 5.8-8.0 Albumin 4.1 g/dL 3.0-5.2 Globulin 2.3 g/dL 2.0-3.4 GFR 73 ML/MIN/1.73SQM >60 Urine Culture 12/29/2023 [facility]. [address] [place], [place] [id number] [phone] Urine Source URINE Urc Comment UROGENITAL CONTA <SEE NOTE> 1 Urinalysis 12/29/2023 [facility]. [address] [place] [address] [phone] Color YELLOW Appearance CLEAR Clear Spec.Grav. 1.023 1.005-1.025 Leukocytes SMALL Abnormal Negative Nitrite NEGATIVE Negative PH 5.5 Low 6.0-7.5 Protein TRACE Abnormal Negative Urine Glucose NEGATIVE Negative Ketone NEGATIVE Negative Urobilinogen NORMAL E.U./DL Normal Bilirubin NEGATIVE Negative Blood NEGATIVE Negative WBC-U 6-10 /HPF Abnormal 0-5/HPF RBC-U 0-2 /HPF 0-5/HPF Bacteria NONE SEEN None Seen Squamous 0-2 /HPF 0-5/HPF Caox Crystal 4+ /HPF Abnormal Not Present Laboratory test finding 12/29/2023 [facility]. [address] [place] [address] [phone] C-Reactive Prot 4.813 mg/dL High 0.000-0.700 T3/T4/TSH 12/29/2023 [facility] [address] [place] [address] [phone] T3 1.2 ng/mL 0.7-1.7 T4 9.0 g /dL 4.0-11.0 TSH 3.91 uIU/mL 0.50-6.00 Laboratory test finding 12/29/2023 [facility] [address] [place] [address] [phone] Sed Rate 21 High 0-20 Urinalysis,Cult If Indicated 12/29/2023 [facility] [address] [place], [place] [id number] [phone] RFLX Culture YES Lipid 12/29/2023 [facility] [address] [place] [address] [phone] Cholesterol 238 mg/dL High 0-200 2 Triglyceride 124 mg/dL 0-150 3 HDLD 58 mg/dL See Comment 4 Measured LDL 174 mg/dL High 0-130 5 Calc VLDL 24.8 mg/dL See Comment 6 Chol/HDL 4.1 RATIO See Comment 7 Non-HDL 180 mg/dL See Comment 8 CBC W/Diff 12/29/2023 [facility] [address] [place] [address] [phone] WBC 6.7 10^3/M3 3.1-9.2 RBC 4.44 10^6/M3 3.70-5.50 HGB 13.9 GR/DL 11.5-16.1 HCT 40.4 % 34.5-47.8 MCV 91.1 CUMICR 82.6-95.8 MCH 31.3 PICOGR 27.9-32.9 MCHC 34.3 % 32.6-35.4 RDW 13.9 % 11.4-14.6 PLT 237 10^3/M3 140-350 MPV 8.2 CUMICR 7.0-10.6 %Neut 67.8 % 40.0-75.0 %Lymph 20.0 % 17.0-45.0 %Hubbard 7.8 % 1.0-11.0 %Eos 3.6 % 0.0-6.0 %Baso 0.8 % 0.0-2.0 #Neut 4.5 10^3/M3 1.5-8.0 #Lymph 1.3 10^3/M3 0.8-3.2 #Hubbard 0.5 10^3/M3 0.0-0.8 #Eos 0.2 10^3/m3 0.0-0.4 #Baso 0.1 10^3/m3 0.0-0.2 CBC W/Diff 11/03/2023 [facility] [address] [place] [address] [phone] WBC 5.5 10^3/M3 3.1-9.2 RBC 4.64 10^6/M3 3.70-5.50 HGB 14.0 GR/DL 11.5-16.1 HCT 41.7 % 34.5-47.8 MCV 89.8 CUMICR 82.6-95.8 MCH 30.1 PICOGR 27.9-32.9 MCHC 33.5 % 32.6-35.4 RDW 13.7 % 11.4-14.6 PLT 237 10^3/M3 140-350 MPV 7.9 CUMICR 7.0-10.6 %Neut 71.3 % 40.0-75.0 %Lymph 21.1 % 17.0-45.0 %Hubbard 5.1 % 1.0-11.0 %Eos 2.1 % 0.0-6.0 %Baso 0.4 % 0.0-2.0 #Neut 3.9 10^3/M3 1.5-8.0 #Lymph 1.2 10^3/M3 0.8-3.2 #Hubbard 0.3 10^3/M3 0.0-0.8 #Eos 0.1 10^3/m3 0.0-0.4 #Baso 0.0 10^3/m3 0.0-0.2 Comp. Met 11/03/2023 [facility] [address] [place] [address] [phone] Glucose 87 mg/dL 70-110 BUN 19 mg/dL 6-25 Creatinine 0.8 mg/dL 0.5-1.2 Sodium 142 mEq/L 135-145 Potassium 4.1 mEq/L 3.5-5.0 Chloride 105 mEq/L 95-107 Co-2 28 mEq/L 24-31 Alk Phos 70 IU/L 43-122 Alt(SGPT) 9 IU/L Low 10-40 Ast(Sgot) 12 IU/L 3-42 T.Bilirubin 0.7 mg/dL 0.1-1.3 Calcium 9.2 mg/dL 8.5-10.6 Tot.Protein 6.7 g/dL 5.8-8.0 Albumin 4.2 g/dL 3.0-5.2 Globulin 2.5 g/dL 2.0-3.4 GFR 73 ML/MIN/1.73SQM >60 Lipid 11/03/2023 [facility] [address] [place] [address] [phone] Cholesterol 255 mg/dL High 0-200 9 Triglyceride 156 mg/dL High 0-150 10 HDLD 55 mg/dL See Comment 11 Measured LDL 189 mg/dL High 0-130 12 Calc VLDL 31.2 mg/dL See Comment 13 Chol/HDL 4.6 RATIO See Comment 14 Non-HDL 200 mg/dL See Comment 15 Urinalysis,Cult If Indicated 11/03/2023 [facility] [address] [place] [address] [phone] RFLX Culture NO Laboratory test finding 11/03/2023 [facility] [address] [place] [address] [phone] Sed Rate 13 0-20 T3/T4/TSH 11/03/2023 [facility] [address] [place], [place] [address] [phone] T3 1.3 ng/mL 0.7-1. 7 T4 8.9 g /dL 4.0-11.0 TSH 3.49 uIU/mL 0.50-6.00 Laboratory test finding 11/03/2023 [facility] [address] [place] [address] [phone] C-Reactive Prot 0.354 mg/dL 0.000-0.700 Urinalysis 11/03/2023 [facility]. [address] [place], [place] [id number] [phone] Color LIGHT-YEL LOW Appearance CLEAR Clear Spec.Grav. 1.013 1.005-1.025 Leukocytes NEGATIVE Negative Nitrite NEGATIVE Negative PH 6.5 6.0-7.5 Protein NEGATIVE Negative Urine Glucose NEGATIVE Negative Ketone NEGATIVE Negative Urobilinogen NORMAL E.U./DL Normal Bilirubin NEGATIVE Negative Blood NEGATIVE Negative WBC-U 3-5 /HPF 0-5/HPF RBC-U 0-2 /HPF 0-5/HPF Bacteria NONE SEEN None Seen Squamous 0-2 /HPF 0-5/HPF Caox Crystal 1+ /HPF Abnormal Not Present 1 UROGENITAL CONTAMINA TION 2 CHOLESTEROL Less than 200mg/dl Low risk 201-239 mg/dl Borderline risk Equal to or greater 240mg/dl High risk 3 TRIGLYCERIDES Less than 150mg/dl Normal 150-199mg/dl Borderline 200-499mg/dl High Greater than 500mg/dl Very High 4 HDL <40mg/dl Elevated Risk 41-59mg/dl Risk >=60mg/dl Least Risk 5 LDL <100mg/dl Optimal 100-129mg/dl Near Optimal 130-159mg/dl Borderline High 160-189mg/dl High >=190 Very High 6 VLDL Less than 30mg/dl Normal 7 CHOL/HDL <4.0 Optimal 4.0-5.0 Borderline >6.0 High Risk 8 NON-HDL 30mg/dl higher than LDL Target 9 CHOLESTEROL Less than 200mg/dl Low risk 201-239 mg/dl Borderline risk Equal to or greater 240mg/dl High risk 10 TRIGLYCERIDES Less than 150mg/dl Normal 150-199mg/dl Borderline 200-499mg/dl High Greater than 500mg/dl Very High 11 HDL <40mg/dl Elevated Risk 41-59mg/dl Risk >=60mg/dl Least Risk 12 LDL <100mg/dl Optimal 100-129mg/dl Near Optimal 130-159mg/dl Borderline High 160-189mg/dl High >=190 Very High 13 VLDL Less than 30mg/dl Normal 14 CHOL/HDL <4.0 Optimal 4.0-5.0 Borderline >6.0 High Risk 15 NON-HDL 30mg/dl higher than LDL Target Procedures Date Code Description Status 12/29/2023 69758 Venipuncture Routine Complet ed 12/04/2023 [id number] Mammogram Completed 11/03/2023 01449 Venipuncture Routine Complet ed 02/01/2022 [id number] Colonoscopy Completed 01/24/2022 [id number] Bone Mineral Density Test Co mpleted Medical Devices Description No Information Available Encounters Description No Information Available Assessments Date Code Description Provider 12/29/2023 E04.1 Nontoxic single thyroid nodu jabier Bailey MD 12/29/2023 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 Lab - [place] 12/29/2023 R60.9 Edema, unspecified Zuri galeano MD 12/29/2023 R60.9 Edema, unspecified Lab - [place] 12/29/2023 M15.9 Polyosteoarthritis, unspecif ied Zuri Bailey MD 12/29/2023 M15.9 Polyosteoarthritis, unspecif ied Lab - [place] 12/29/2023 E78.5 Hyperlipidemia, unspecified Zuri Bailey MD 12/29/2023 E78.5 Hyperlipidemia, unspecified Lab - [place] 11/03/2023 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 Zuri Bailey MD 11/03/2023 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 Lab - [place] 11/03/2023 R60.9 Edema, unspecified Zuri galeano MD 11/03/2023 R60.9 Edema, unspecified Lab - [place] 11/03/2023 M15.9 Polyosteoarthritis, unspecif ied Zuri Bailey MD 11/03/2023 M15.9 Polyosteoarthritis, unspecif ied Lab - [place] 11/03/2023 E78.5 Hyperlipidemia, unspecified Zuri Bailey MD 11/03/2023 E78.5 Hyperlipidemia, unspecified Lab - [place] Plan of Treatment Future Appointment(s):* 01/05/2024 10:30 am - Diogo Hyde PA-C at [place] 06/25/2023 - Diogo Hyde PA-C* Z96.641 Presence of right artificial hip joint* Comments:* Continue to apply ice 15 minutes at least 2 or 3 times a day to the incision site Continue to alternate ice and heat to the inguinal region and medial aspect of leg Increase ambulation as tolerated Continue physical therapy as advised Follow-up July 03 with orthopedic surgery for staple removal as scheduled notify us if she develops any purulent or serosanguineous drainage from the incision site * N39.0 Urinary tract infection, site not specified* Comments:* Patient is aware that we will cover her with Keflex empirically and notify her regarding urinalysisculture results Keflex will also cover if there is any kind of bacterial infection of the incision of the right lateral aspect of leg * All* New Medication:* Cephalexin 500 mg - one capsule two times daily x 10 days Functional Status Description No Information Available Mental Status Description No Information Available Referrals Refer to Reason for Referral Status Appt [facility] Scheduled 4 [address] [facility] [phone]
--- OUTSIDE RECORDS SUMMARY | 2024-01-05 10:39 | External Medical Summary | Continuity of Care Document ---
Author Name Unknown Organization [facility] er, Address [address] [place] [address] Phone [phone] Care Team Providers Care Volunteer Assistant Name Role Phone Meli Peters MD Care Team Information Equity Research Associate [phone] Problems Active Problems Provider Date Polymyalgia rheumatica Diogo Hyde PA-C O nset: 08/18/2017 Pure hyperglyceridemia Diogo Hdye PA-C O nset: 08/18/2017 Osteoporosis Diogo Hyde [...] Qnty Indications Order ing Provider Date Meclizine BZE77aq Tablets 1 by mouth every 6 hours as needed dizziness 45tabs Zuri Bailey MD 10/31/2023 Aspirin Adult Low Dfgv46zu Tablets DR 1 by mouth every day Unknown 06/21/2023 Tylenol Extra Obtdniht409bo Tablets 2 by mouth three times a [...] Hyde PA-C 03/17 Injection Kenalog 10 MG [facility] [id number] Amarilys Portillo PA-C 11/21/2017 Injection Dexamethasone Sodium Phosphate, 1 MGInjection Amarilys Portillo PA-C 03/2018 Rocephin Inj 250 MGInjection Joel Portillo PA-C 11/21/2017 Immunizations CPT Code Status Date Vaccine Lot # [id number] Given 10/23/2022 Influenza Vacci ne-Administered at another facility 99178 Given 02/23/2021 Moderna Sars-Co v-2 (Cov-19) vacc,100 mcg/ 0.5 mL 12Y+EMR Doc Only 75702 Given 01/25/2021 Moderna Sars-Co v-2 (Cov-19) vacc,100 mcg/ 0.5 mL 12Y+EMR Doc Only 80402 Given 09/04/2020 Influenza Vaccine High Do se 0.5ML Age 65 & > [id number] U-FLU Given 08/19/2019 Influenza,Unspecified 66967 Given 08/19/2019 Influenza Vacci ne, Inactivated, Subunit, Adjuvanted, For Intrmus 280979 U-FLU Given 08/21/2018 Influenza,Unspecified 45724 Given 08/21/2018 Influenza Virus Vaccine, Quadrivalent (Cciiv4), Derived From Cell 08709 Given 08/21/2018 Influenza Virus Vaccine, Quadrivalent, Im Use 769018 65771 Given 01/20/2018 Tdap (Tetanus, diphtheria & acel. pertussis) Adacel or Boostrix [id number] 41250 Given 2017 Pneumococcal Conjugate-Pr evnar 13 [id number] 79462 Given 2017 Pneumococcal Conjugate-Pr evnar 13 [id number] 08860 Given 08/15/2014 Zostavax Vaccine 14875 Given 02/04/2014 Pneumococcal Vaccine/Pneu movax 23 [id number] Refused 11/21/2017 Influenza Vacci ne Quadrivalent Preser/Antibiotic Free Im Use Vital Signs Date Vital Result Comment 06/25/2023 12:36pm BP Systolic 122 mmHg BP Diastolic 72 mmHg Body Temperature 97.7 F Heart Rate 82 /min Respiratory Rate 14 /min Weight 171.00 lb Weight 77.566 kg Height 68 inches 5'8" BMI (Body Mass Index) 26.0 kg/m2 O2 % BldC Oximetry 95 % [place] Body Weight 140 lb 06/11/2023 9:23am BP Systolic 112 mmHg BP Diastolic 70 mmHg Body Temperature 97.8 F Heart Rate 77 /min Respiratory Rate 16 /min Weight 183.38 lb Weight 83.179 kg Height 68 inches 5'8" BMI (Body Mass Index) 27.9 kg/m2 O2 % BldC Oximetry 95 % [place] Body Weight 140 lb Results Test Acquired Date Facility Test Result H/L Range N ote Laboratory test finding 12/29/2023 [facility]. [address] [place] [address] [phone] Sed Rate <pending> Laboratory test finding 12/29/2023 [facility] [address] [place] [address] [phone] C-Reactive Prot <pending> CBC W/Diff 11/03/2023 [facility]. [address] [place] [address] [phone] WBC 5.5 10^3/M3 3.1-9.2 RBC 4.64 10^6/M3 3.70-5.50 HGB 14.0 GR/DL 11.5-16.1 HCT 41.7 % 34.5-47.8 MCV 89.8 CUMICR 82.6-95.8 MCH 30.1 PICOGR 27.9-32.9 MCHC 33.5 % 32.6-35.4 RDW 13.7 % 11.4-14.6 PLT 237 10^3/M3 140-350 MPV 7.9 CUMICR 7.0-10.6 %Neut 71.3 % 40.0-75.0 %Lymph 21.1 % 17.0-45.0 %Keith 5.1 % 1.0-11.0 %Eos 2.1 % 0.0-6.0 %Baso 0.4 % 0.0-2.0 #Neut 3.9 10^3/M3 1.5-8.0 #Lymph 1.2 10^3/M3 0.8-3.2 #Keith 0.3 10^3/M3 0.0-0.8 #Eos 0.1 10^3/m3 0.0-0.4 #Baso 0.0 10^3/m3 0.0-0.2 Comp. Met 11/03/2023 [facility] [address] [place], [place] [address] [phone] Glucose 87 mg/dL 70-110 BUN 19 mg/dL [...] 2.0-3.4 GFR 73 ML/MIN/1.73SQM >60 Lipid 11/03/2023 [facility] [address] [place] [address] [phone] Cholesterol 255 mg/dL High 0-200 1 Triglyceride 156 mg/dL High 0-150 2 HDLD 55 mg/dL See Comment 3 Measured LDL 189 mg/dL High 0-130 4 Calc VLDL 31.2 mg/dL See Comment 5 Chol/HDL 4.6 RATIO See Comment 6 Non-HDL 200 mg/dL See Comment 7 Urinalysis,Cult If Indicated 11/03/2023 [facility] [address] [place] [address] [phone] RFLX Culture NO Laboratory test finding 11/03/2023 [facility] [address] [place], [place] [address] [phone] Sed Rate 13 0-20 T3/T4/TSH 11/03/2023 [facility] [address] [place], [place] [address] [phone] T3 1.3 ng/mL 0.7-1. 7 T4 8.9 g /dL 4.0-11.0 TSH 3.49 uIU/mL 0.50-6.00 Laboratory test finding 11/03/2023 [facility] [address] [place] [address] [phone] C-Reactive Prot 0.354 mg/dL 0.000-0.700 Urinalysis 11/03/2023 [facility] [address] [place], [place] [address] [phone] Color LIGHT-YEL LOW Appearance CLEAR Clear Spec.Grav. 1.013 1.005-1.025 Leukocytes NEGATIVE Negative Nitrite NEGATIVE Negative PH 6.5 6.0-7.5 Protein NEGATIVE Negative Urine Glucose NEGATIVE Negative Ketone NEGATIVE Negative Urobilinogen NORMAL E.U./DL Normal Bilirubin NEGATIVE Negative Blood NEGATIVE Negative WBC-U 3-5 /HPF 0-5/HPF RBC-U 0-2 /HPF 0-5/HPF Bacteria NONE SEEN None Seen Squamous 0-2 /HPF 0-5/HPF Caox Crystal 1+ /HPF Abnormal Not Present 1 CHOLESTEROL Less than 200mg/dl Low risk 201-239 mg/dl Borderline risk Equal to or greater 240mg/dl High risk 2 TRIGLYCERIDES Less than 150mg/dl Normal 150-199mg/dl Borderline 200-499mg/dl High Greater than 500mg/dl Very High 3 HDL <40mg/dl Elevated Risk 41-59mg/dl Risk >=60mg/dl Least Risk 4 LDL <100mg/dl Optimal 100-129mg/dl Near Optimal 130-159mg/dl Borderline High 160-189mg/dl High >=190 Very High 5 VLDL Less than 30mg/dl Normal 6 CHOL/HDL <4.0 Optimal 4.0-5.0 Borderline >6.0 High Risk 7 NON-HDL 30mg/dl higher than LDL Target Procedures Date Code Description Status 12/29/2023 36799 Venipuncture Routine Complet ed 12/04/2023 [id number] Mammogram Completed 11/03/2023 48454 Venipuncture Routine Complet ed 02/01/2022 [id number] Colonoscopy Completed 01/24/2022 [id number] Bone Mineral Density Test Co mpleted Medical Devices Description No Information Available Encounters Description No Information Available Assessments Date Code Description Provider 12/29/2023 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 Lab - [place] 12/29/2023 R60.9 Edema, unspecified Lab - [place] [facility] [place] 12/29/2023 M15.9 Polyosteoarthritis, unspecif ied Lab - [place] 12/29/2023 E78.5 Hyperlipidemia, unspecified Lab - [place] 11/03/2023 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 Zuri Bailey MD 11/03/2023 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 Lab - [place] 11/03/2023 R60.9 Edema, unspecified Zuri galeano MD 11/03/2023 R60.9 Edema, unspecified Lab - [place] 11/03/2023 M15.9 Polyosteoarthritis, unspecif ied Zuri Bailey MD 11/03/2023 M15.9 Polyosteoarthritis, unspecif ied Lab - [place] 11/03/2023 E78.5 Hyperlipidemia, unspecified Zuri Bailey MD 11/03/2023 E78.5 Hyperlipidemia, unspecified Lab - [place] Plan of Treatment Future Appointment(s):* 01/05/2024 10:30 am - Diogo Hyde PA-C at [place] 06/25/2023 - Diogo Hyde PA-C* Z96.641 Presence [...] Referral Status Appt [facility] Scheduled [address] [place] [address] [phone]
--- OUTSIDE RECORDS SUMMARY | 2024-01-05 10:39 | External Medical Summary | Continuity of Care Document ---
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 [phone] Problems Active Problems Provider Date Polymyalgia rheumatica Diogo Hyde PA-C O nset: 08/18/2017 Pure hyperglyceridemia Diogo Hyde PA-C O nset: 08/18/2017 Osteoporosis Diogo Hyde PA-C Onset: 1 Mixed hyperlipidemia Diogo Hyde PA-C Ons et: 2017 Acute thyroiditis Diogo Hyde PA-C Onset: 2017 Adult health examination Diogo Hyde PA-C Onset: 01/19/2018 Hypothyroidism Digoo Hyde PA-C Onset: 0 01/19/2018 Aortic valve [...] Qnty Indications Order ing Provider Date Meclizine [id number] Tablets 1 by mouth every 6 hours as needed dizziness 45tabs Zuri Bailey MD 10/31/2023 Aspirin Adult Low Vvlt15zi Tablets DR 1 by mouth every day Unknown 06/21/2023 Tylenol Extra Leowhebw860ko Tablets 2 by mouth three times a [...] Hyde PA-C 03/17 Injection Kenalog 10 MG [facility] [id number] Amarilys Portillo PA-C 11/21/2017 Injection Dexamethasone Sodium Phosphate, 1 MGInjection Amarilys Portillo PA-C 03/2018 Rocephin Inj 250 MGInjection Joel Portillo PA-C 11/21/2017 Immunizations CPT Code Status Date Vaccine Lot # [id number] Given 10/23/2022 Influenza Vacci ne-Administered at another facility 78952 Given 02/23/2021 Moderna Sars-Co v-2 (Cov-19) vacc,100 mcg/ 0.5 mL 12Y+EMR Doc Only 54585 Given 01/25/2021 Moderna Sars-Co v-2 (Cov-19) vacc,100 mcg/ 0.5 mL 12Y+EMR Doc Only 93411 Given 09/04/2020 Influenza Vaccine High Do se 0.5ML Age 65 & > [id number] U-FLU Given 08/19/2019 Influenza,Unspecified 82265 Given 08/19/2019 Influenza Vacci ne, Inactivated, Subunit, Adjuvanted, For Intrmus [id number] U-FLU Given 08/21/2018 Influenza,Unspecified 25735 Given 08/21/2018 Influenza Virus Vaccine, Quadrivalent (Cciiv4), Derived From Cell 55034 Given 08/21/2018 Influenza Virus Vaccine, Quadrivalent, Im Use [id number] 42089 Given 01/20/2018 Tdap (Tetanus, diphtheria & acel. pertussis) Adacel or Boostrix [id number] 66123 Given 2017 Pneumococcal Conjugate-Pr evnar 13 [id number] 58288 Given 2017 Pneumococcal Conjugate-Pr evnar 13 [id number] 69013 Given 08/15/2014 Zostavax Vaccine 38568 Given 02/04/2014 Pneumococcal Vaccine/Pneu movax 23 [id number] Refused 11/21/2017 Influenza Vacci ne Quadrivalent Preser/Antibiotic Free Im Use Vital Signs Date Vital Result Comment 06/25/2023 12:36pm BP Systolic 122 mmHg BP Diastolic 72 mmHg Body Temperature 97.7 F Heart Rate 82 /min Respiratory Rate 14 /min Weight 171.00 lb Weight 77.566 kg Height 68 inches 5'8" BMI (Body Mass Index) 26.0 kg/m2 O2 % BldC Oximetry 95 % [place] Body Weight 140 lb 06/11/2023 9:23am BP Systolic 112 mmHg BP Diastolic 70 mmHg Body Temperature 97.8 F Heart Rate 77 /min Respiratory Rate 16 /min Weight 183.38 lb Weight 83.179 kg Height 68 inches 5'8" BMI (Body Mass Index) 27.9 kg/m2 O2 % BldC Oximetry 95 % [place] Body Weight 140 lb Results Test Acquired Date Facility Test Result H/L Range N [place]te Laboratory test finding 12/29/2023 [facility] [address] [place] [address] [phone] Sed Rate <pending> Laboratory test finding 12/29/2023 [facility] [address] [place] [address] [phone] C-Reactive Prot <pending> CBC W/Diff 11/03/2023 [facility] [address] [place] [address] [phone] WBC 5.5 10^3/M3 3.1-9.2 RBC 4.64 10^6/M3 3.70-5.50 HGB 14.0 GR/DL 11.5-16.1 HCT 41.7 % 34.5-47.8 MCV 89.8 CUMICR 82.6-95.8 MCH 30.1 PICOGR 27.9-32.9 MCHC 33.5 % 32.6-35.4 RDW 13.7 % 11.4-14.6 PLT 237 10^3/M3 140-350 MPV 7.9 CUMICR 7.0-10.6 %Neut 71.3 % 40.0-75.0 %Lymph 21.1 % 17.0-45.0 %[place] 5.1 % 1.0-11.0 %Eos 2.1 % 0.0-6.0 %Baso 0.4 % 0.0-2.0 #Neut 3.9 10^3/M3 1.5-8.0 #Lymph 1.2 10^3/M3 0.8-3.2 #[place] 0.3 10^3/M3 0.0-0.8 #Eos 0.1 10^3/m3 0.0-0.4 #Baso 0.0 10^3/m3 0.0-0.2 Comp. Met 11/03/2023 [facility] [address] [place], [place] [address] [phone] Glucose 87 mg/dL 70-110 BUN 19 mg/dL [...] 2.0-3.4 GFR 73 ML/MIN/1.73SQM >60 Lipid 11/03/2023 [facility] [address] [place] [address] [phone] Cholesterol 255 mg/dL High 0-200 1 Triglyceride 156 mg/dL High 0-150 2 HDLD 55 mg/dL See Comment 3 Measured LDL 189 mg/dL High 0-130 4 Calc VLDL 31.2 mg/dL See Comment 5 Chol/HDL 4.6 RATIO See Comment 6 Non-HDL 200 mg/dL See Comment 7 Urinalysis,Cult If Indicated 11/03/2023 [facility] [address] [place] [address] [phone] RFLX Culture NO Laboratory test finding 11/03/2023 [facility] [address] [place], [place] [id number] [phone] Sed Rate 13 0-20 T3/T4/TSH 11/03/2023 [facility] [address] [place], [place] [address] [phone] T3 1.3 ng/mL 0.7-1. 7 T4 8.9 g /dL 4.0-11.0 TSH 3.49 uIU/mL 0.50-6.00 Laboratory test finding 11/03/2023 [facility] [address] [place] [address] [phone] C-Reactive Prot 0.354 mg/dL 0.000-0.700 Urinalysis 11/03/2023 [facility] [address] [place], [place] [address] [phone] Color LIGHT-YEL LOW Appearance CLEAR Clear Spec.Grav. 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 Lab - [place] 12/29/2023 R60.9 Edema, unspecified Lab - [place] 12/29/2023 M15.9 Polyosteoarthritis, unspecif ied Lab - [place] 12/29/2023 E78.5 Hyperlipidemia, unspecified Lab - [place] 11/03/2023 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 Zuri Bailey MD 11/03/2023 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 Lab - [place] 11/03/2023 R60.9 Edema, unspecified Zuri galeano MD 11/03/2023 R60.9 Edema, unspecified Lab - [place] 11/03/2023 M15.9 Polyosteoarthritis, unspecif ied Zuri Bailey MD 11/03/2023 M15.9 Polyosteoarthritis, unspecif ied Lab - [place] 11/03/2023 E78.5 Hyperlipidemia, unspecified Zuri Bailey MD 11/03/2023 E78.5 Hyperlipidemia, unspecified Lab - [place] Plan of Treatment Future Appointment(s):* 01/05/2024 10:30 am - Diogo Hyde PA-C at [place] 06/25/2023 - Diogo Hyde PA-C* Z96.641 Presence [...] for Referral Status Appt [facility] Scheduled [address] [place] [address] [phone]
--- OUTSIDE RECORDS SUMMARY | 2024-01-05 10:39 | External Medical Summary | Continuity of Care Document ---
Author Name Unknown Organization [facility] er, Address [address] [place] [address] Phone [phone] Care Team Providers Care Workforce Consultant Name Role Phone Meli Peters MD Care Team Information Roll Edge Stitcher Hand [phone] Problems Active Problems Provider Date Polymyalgia rheumatica [...] Qnty Indications Order ing Provider Date Meclizine JWI10hy Tablets 1 by mouth every 6 hours as needed dizziness 45tabs Zuri Bailey MD 10/31/2023 Aspirin Adult Low Dcfr63wi Tablets DR 1 by mouth every day Unknown 06/21/2023 Tylenol Extra Srakeezo963ke Tablets 2 by mouth three times a [...] Hyde PA-C 03/17 Injection Kenalog 10 MG [facility] [id number] Amarilys Portillo PA-C 11/21/2017 Injection Dexamethasone Sodium Phosphate, 1 MGInjection Amarilys Portillo PA-C 03/2018 Rocephin Inj 250 MGInjection Joel Portillo PA-C 11/21/2017 Immunizations CPT Code Status Date Vaccine Lot # [id number] Given 10/23/2022 Influenza Vacci ne-Administered at another facility 06169 Given 02/23/2021 Moderna Sars-Co v-2 (Cov-19) vacc,100 mcg/ 0.5 mL 12Y+EMR Doc Only 38400 Given 01/25/2021 Moderna Sars-Co v-2 (Cov-19) vacc,100 mcg/ 0.5 mL 12Y+EMR Doc Only 25305 Given 09/04/2020 Influenza Vaccine High Do se 0.5ML Age 65 & > [id number] U-FLU Given 08/19/2019 Influenza,Unspecified 20335 Given 08/19/2019 Influenza Vacci ne, Inactivated, Subunit, Adjuvanted, For Intrmusc 268451 U-FLU Given 08/21/2018 Influenza,Unspecified 59729 Given 08/21/2018 Influenza Virus Vaccine, Quadrivalent (Cciiv4), Derived From Cell 50524 Given 08/21/2018 Influenza Virus Vaccine, Quadrivalent, Im Use [id number] 65089 Given 01/20/2018 Tdap (Tetanus, diphtheria & acel. pertussis) Adacel or Boostrix [id number] 99959 Given 2017 Pneumococcal Conjugate-Pr evnar 13 [id number] 83480 Given 2017 Pneumococcal Conjugate-Pr evnar 13 [id number] 07113 Given 08/15/2014 Zostavax Vaccine 14543 Given 02/04/2014 Pneumococcal Vaccine/Pneu movax 23 10253 Refused 11/21/2017 Influenza Vacci ne Quadrivalent Preser/Antibiotic Free Im Use Vital Signs Date Vital Result Comment 06/25/2023 12:36pm BP Systolic 122 mmHg BP Diastolic 72 mmHg Body Temperature 97.7 F Heart Rate 82 /min Respiratory Rate 14 /min Weight 171.00 lb Weight 77.566 kg Height 68 inches 5'8" BMI (Body Mass Index) 26.0 kg/m2 O2 % BldC Oximetry 95 % [place] Body Weight 140 lb 06/11/2023 9:23am BP Systolic 112 mmHg BP Diastolic 70 mmHg Body Temperature 97.8 F Heart Rate 77 /min Respiratory Rate 16 /min Weight 183.38 lb Weight 83.179 kg Height 68 inches 5'8" BMI (Body Mass Index) 27.9 kg/m2 O2 % BldC Oximetry 95 % [place] Body Weight 140 lb Results Test Acquired Date Facility Test Result H/L Range N [place] Comp. Met 12/29/2023 [facility]. [address] [place] [address] [phone] Glucose 81 mg/dL 70-110 BUN 19 mg/dL [...] GFR 73 ML/MIN/1.73SQM >60 Urine Culture 12/29/2023 [facility] [address] [place], [place] [id number] [phone] Urine Source URINE Urc Comment UROGENITAL CONTA <SEE NOTE> 1 Urinalysis 12/29/2023 [facility]. [address] [place] [address] [phone] Color YELLOW Appearance CLEAR Clear Spec.Grav. 1.023 [...] Abnormal Not Present Laboratory test finding 12/29/2023 [facility]. [address] [place] [address] [phone] C-Reactive Prot 4.813 mg/dL High 0.000-0.700 T3/T4/TSH 12/29/2023 [facility]. [address] [place] [address] [phone] T3 1.2 ng/mL 0.7-1.7 T4 9.0 g /dL 4.0-11.0 TSH 3.91 uIU/mL 0.50-6.00 Laboratory test finding 12/29/2023 [facility]. [address] [place] [address] [phone] Sed Rate 21 High 0-20 Urinalysis,Cult If Indicated 12/29/2023 [facility] 1 [place], [place] [address] [phone] RFLX Culture YES Lipid 12/29/2023 [facility]. [address] [place] [address] [phone] Cholesterol 238 mg/dL High 0-200 2 Triglyceride 124 mg/dL 0-150 3 HDLD 58 mg/dL See Comment 4 Measured LDL 174 mg/dL High 0-130 5 Calc VLDL 24.8 mg/dL See Comment 6 Chol/HDL 4.1 RATIO See Comment 7 Non-HDL 180 mg/dL See Comment 8 CBC W/Diff 12/29/2023 [facility]. [address] [place] [address] [phone] WBC 6.7 10^3/M3 3.1-9.2 RBC 4.44 10^6/M3 3.70-5.50 HGB 13.9 GR/DL 11.5-16.1 HCT 40.4 % 34.5-47.8 MCV 91.1 CUMICR 82.6-95.8 MCH 31.3 PICOGR 27.9-32.9 MCHC 34.3 % 32.6-35.4 RDW 13.9 % 11.4-14.6 PLT 237 10^3/M3 140-350 MPV 8.2 CUMICR 7.0-10.6 %Neut 67.8 % 40.0-75.0 %Lymph 20.0 % 17.0-45.0 %[place] 7.8 % 1.0-11.0 %Eos 3.6 % 0.0-6.0 %Baso 0.8 % 0.0-2.0 #Neut 4.5 10^3/M3 1.5-8.0 #Lymph 1.3 10^3/M3 0.8-3.2 #[place] 0.5 10^3/M3 0.0-0.8 #Eos 0.2 10^3/m3 0.0-0.4 #Baso 0.1 10^3/m3 0.0-0.2 CBC W/Diff 11/03/2023 [facility]. [address] [place] [address] [phone] WBC 5.5 10^3/M3 3.1-9.2 RBC 4.64 10^6/M3 3.70-5.50 HGB 14.0 GR/DL 11.5-16.1 HCT 41.7 % 34.5-47.8 MCV 89.8 CUMICR 82.6-95.8 MCH 30.1 PICOGR 27.9-32.9 MCHC 33.5 % 32.6-35.4 RDW 13.7 % 11.4-14.6 PLT 237 10^3/M3 140-350 MPV 7.9 CUMICR 7.0-10.6 %Neut 71.3 % 40.0-75.0 %Lymph 21.1 % 17.0-45.0 %[place] 5.1 % 1.0-11.0 %Eos 2.1 % 0.0-6.0 %Baso 0.4 % 0.0-2.0 #Neut 3.9 10^3/M3 1.5-8.0 #Lymph 1.2 10^3/M3 0.8-3.2 #[place] 0.3 10^3/M3 0.0-0.8 #Eos 0.1 10^3/m3 0.0-0.4 #Baso 0.0 10^3/m3 0.0-0.2 Comp. Met 11/03/2023 [facility]. [address] [place] [address] [phone] Glucose 87 mg/dL 70-110 BUN 19 mg/dL [...] 2.0-3.4 GFR 73 ML/MIN/1.73SQM >60 Lipid 11/03/2023 [facility]. [address] [place] [address] [phone] Cholesterol 255 mg/dL High 0-200 9 Triglyceride 156 mg/dL High 0-150 10 HDLD 55 mg/dL See Comment 11 Measured LDL 189 mg/dL High 0-130 12 Calc VLDL 31.2 mg/dL See Comment 13 Chol/HDL 4.6 RATIO See Comment 14 Non-HDL 200 mg/dL See Comment 15 Urinalysis,Cult If Indicated 11/03/2023 [facility]. [address] [place] [address] [phone] RFLX Culture NO Laboratory test finding 11/03/2023 [facility]. [address] [place] [address] [phone] Sed Rate 13 0-20 T3/T4/TSH 11/03/2023 [facility] 1 [place], [place] [address] [phone] T3 1.3 ng/mL 0.7-1. 7 T4 8.9 g /dL 4.0-11.0 TSH 3.49 uIU/mL 0.50-6.00 Laboratory test finding 11/03/2023 [facility]. [address] [place] [address] [phone] C-Reactive Prot 0.354 mg/dL 0.000-0.700 Urinalysis 11/03/2023 [facility]. 1 [place], [place] [address] [phone] Color LIGHT-YEL LOW Appearance CLEAR Clear Spec.Grav. 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 Lab - [place] 12/29/2023 R60.9 Edema, unspecified Zuri galeano MD 12/29/2023 R60.9 Edema, unspecified Lab - [place] 12/29/2023 M15.9 Polyosteoarthritis, unspecif ied Zuri Bailey MD 12/29/2023 M15.9 Polyosteoarthritis, unspecif ied Lab - [place] 12/29/2023 E78.5 Hyperlipidemia, unspecified Zuri Bailey MD 12/29/2023 E78.5 Hyperlipidemia, unspecified Lab - [place] 11/03/2023 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 Zuri Bailey MD 11/03/2023 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 Lab - [place] 11/03/2023 R60.9 Edema, unspecified Zuri galeano MD 11/03/2023 R60.9 Edema, unspecified Lab - [place] 11/03/2023 M15.9 Polyosteoarthritis, unspecif ied Zuri Bailey MD 11/03/2023 M15.9 Polyosteoarthritis, unspecif ied Lab - [place] 11/03/2023 E78.5 Hyperlipidemia, unspecified Zuri Bailey MD 11/03/2023 E78.5 Hyperlipidemia, unspecified Lab - [place] Plan of Treatment Future Appointment(s):* 01/05/2024 10:30 am - Diogo Hyde PA-C at [place] 06/25/2023 - Diogo Hyde PA-C* Z96.641 Presence [...] for Referral Status Appt [facility] Scheduled 4 [address] [facility] [phone]
--- NOTE | 2024-01-05 11:03 | Electrocardiogram Report ---
Test Reason : Blood Pressure : / mmHG Vent. Rate : 074 BPM Atrial Rate : 074 BPM P-R Int : 196 ms QRS Dur : 126 ms QT Int : 422 ms P-R-T Axes : 077 -14 -05 degrees QTc Int : 468 ms Normal sinus rhythm Right bundle branch block Abnormal ECG When compared with ECG of 07-JAN-2023 09:33, Right bundle branch block is now Present Confirmed by Asa Fitzpatrick ([id number]) on 01/05/2024 11:02:57 AM Referred By: Diogo Hyde Confirmed By:Claude Fitzpatrick
--- NOTE | 2024-01-05 11:28 | Ultrasound Report ---
US gallbladder CLINICAL HISTORY: Pain, nausea TECHNIQUE: Multiple real-time sonographic images of the right upper quadrant were obtained. Comparison: None available at the time of this dictation. FINDINGS: The liver is diffusely homogenous with normal contour and echogenicity. No focal mass lesions are see n. No intrahepatic ductal dilatation is seen. Gallbladder wall is thickened measuring 0.4 to 1.5 cm with stones noted. Free fluid is seen adjacent to the gallbladder. A sonographic Lambert's sign was elicited by the chemistry intern. The common duct measures 0.8 cm in diameter at the level of the hepat ic artery. The visualized portions of the pancreas appear normal. The right kidney shows normal echogenicity, cortical thickness and renal contour. The right kidney sh ows no evidence of hydronephrosis or mass. No ascites or free fluid is seen in Suarez's pouch. IMPRESSION: Findings compatible with acute cholecystitis. ACT 112: Negative or not required by law. Electronically signed by: Rajendra Ring M.D. 01/05/2024 11:27 AM
[2024-01-05 11:35] LABS: Appearance Urine Clear (Clear); Bacteria Urine Automated Negative (Negative); Bilirubin Urine Negative (Negative); Blood Urine Trace (Negative); Cast Urine Automated 0 /lpf (0-5); Color Urine Yellow; Glucose Urine UA Negative (Negative); Ketones Urine 1+ (Negative); Leukocyte Esterase Urine Negative (Negative); Nitrite Urine Negative (Negative); Specific Gravity Urine 1.018 (1.000-1.030); Urobilinogen Urine Negative (Negative)
[2024-01-05 11:42] LABS: Protein Urine Trace (Negative)
[2024-01-05] MEDS ORDERED: ALUMINUM/MAGNESIUM SUSP 30 ML UDC PO PRN (12:13)
[2024-01-05] MEDS ORDERED: POLYETHYLENE (MIRALAX) 17 GM PACK PO PRN (12:13)
[2024-01-05] MEDS ORDERED: MAGNESIUM HYDROXIDE SUSP 30 ML UDC PO PRN (12:13)
[2024-01-05] MEDS: PIPERACILLIN/TAZOBACTAM 4.5 GM/100 ML BAG IV ONE (12:24)
--- NOTE | 2024-01-05 12:29 | History & Physical Report ---
Date of Service January 05, 2024 Assessment & Plan (1) Acute cholecystitis: (2) Hypercholesteremia: (3) Osteoarthritis: (4) History of kidney stones: Plan Ms. Bui is an 83 y/o female that presented to the ED today with complains of RUQ and R flank pain which started one week ago; worsening on Wednesday 01/03 and did not respond to PO Tylenol. Yesterday, she did not sleep since 0200; had a few episodes of nausea with yellow/bile tinged emesis. Additional PMH includes: OA and DJD; she had two hip replacements in 2022 (January and May) without complications. Denies tobacco, alcohol, or recreational drug use. Gallbladder Ultrasound revealed Acute cholecystitis. Mild leukocytosis; 13.70, electrolytes unremarkable; pending Mg+. LFT's unremarkable, Troponin and Lipase negative. Serum glucose 157; as no outpatient records available; will check A1C prior to sx. ECG NSR with RBBB that appears new compared to ECG on 01/07/23. Does not take any medications outside of vitamins. Covid negative in ED. Pt denies QUARLES, fever, chills, dizziness, SOB, chest pain, palpitations, dysuria, bowel or bladder changes, recent falls or trauma. ED spoke with general surgery who will perform formal consultation with possible cholecystectomy tomorrow 01/06/24. For now, cover with broad-spectrum abx, Check lactate, Mg +, and Phos. pain control with scheduled IV Tylenol and PRN IV Morphine. Will obtain ECHO to complete cardiac pre op clearance, but forsee patient to be cleared for surgery. Keep NPO pending surgery consult. Acute cholecystitis: Acute -RUQ/R flank pain x 1 week; worsening since 01/03/2024 -GB US: Acute cholecystitis -Leukocytosis 13.70; lactate pending -LFTs unremarkable -Broad-spectrum antibiotic coverage with Zosyn -IV pain control with scheduled Tylenol and Morphine PRN -NPO pending possible surgery -ECG NSR with RBBB compared to 01/07/2023; Will obtain ECHO to complete cardiac p re op clearance -Will check A1c and Mg+ -General surgery consulted; possible laparoscopic cholecystectomy 01/06/2024 Hypercholesterolemia: Chronic Diet controlled Will check fasting lipid panel OA: Chronic History of hip replacement x2 2022 History of kidney stones: Chronic Spontaneously passed in the past Does not take any medications for this Disposition: PCP: Dr. Hyde CODE STATUS: Full code VTE prophylaxis: Teds and SCDs for now I spent a total of 87 minutes coordinating, documenting, and providing care for this patient excluding time spent in the performance of separately billed services. All of the aforementioned completed while collaborating with the assigned attending physician for a full treatment plan. Please see their addendum for further details. History of Present Illness Chief Complaint: RUQ/R flank pain Primary Care Provider: Diogo Hyde Ms. Bui is an 83 year old female that presented to the ED today with complains of RUQ and R flank pain which started one week ago; worsening on Wednesday 01/03 and did not respond to PO tylenol. Yesterday, she did not sleep since 0200; had a few episodes of nausea with yellow/bile tinged emesis. Reports that her symptoms are worse with food intake. Additional PMH includes: OA and DJD; she had two hip replacements in 2022 (January and May) without complications. Denies tobacco, alcohol, or recreational drug use. Today, in the ED; Gallbladder Ultrasound revealed Acute cholecystitis. Mild leukocytosis; 13.70, electrolytes unremarkable; pending Mg+. LFT's unremarkable, Troponin and Lipase negative. Serum glucose 157; as no outpatient records available; will check A1C prior to sx. ECG NSR with RBBB that appears new compared to ECG on 01/07/23. Does not take any medications outside of vitamins. Covid negative in ED. Pt denies QUARLES, fever, chills, dizziness, SOB, chest pain, palpitations, dysuria, bowel or bladder changes, recent falls or trauma. ED spoke with general surgery who will perform formal consultation with possible laparoscopic cholecystectomy tomorrow 01/06/24. For now, cover with broad- spectrum abx, Check lactate, Mg +, and Phos. pain control with scheduled IV Tylenol and PRN IV Morphine. Will obtain ECHO to complete cardiac pre op clearance. Keep NPO pending surgery consult. Allergies Allergy/AdvReac Type Severity Reaction Status Date / Time prednisone Allergy Severe Tachycardia Verified 01/05/24 12:44 pitavastatin [From Livalo] Allergy Intermediate leg pain Verified 01/05/24 12:44 and stomach problems procaine Allergy Intermediate Bradycardia Verified 01/05/24 12:44 rosuvastatin Allergy Intermediate leg pain Verified 01/05/24 12:44 and stomach problems atorvastatin Allergy Mild leg pain Verified 01/05/24 12:44 and stomach problems Penicillins AdvReac Intermediate Yeast Verified 01/05/24 12:44 infection Home Medications Medication Instructions Recorded Confirmed Type 3-in-1 Commode #1 ea 12/23/22 01/05/24 Rx 3-in-1 Commode #1 ea 12/23/22 01/05/24 Rx Wheeled Walker #1 ea 12/23/22 01/05/24 Rx Wheeled Walker #1 ea 12/23/22 01/05/24 Rx acetaminophen 500 mg tablet 1,000 mg PO TID pain 01/05/24 01/05/24 History (Tylenol Extra Strength) cholecalciferol (vitamin D3) 50 50 mcg PO DAILY 01/05/24 01/05/24 History mcg (2,000 unit) tablet (Vitamin D3) coenzyme Q10 100 mg capsule 100 mg PO DAILY 01/05/24 01/05/24 History (CoQ-10) cranberry 400 mg capsule 400 mg PO DAILY 01/05/24 01/05/24 History magnesium oxide 400 mg PO DAILY 01/05/24 01/05/24 History omega 6-svf-wvq-fish oil 1,200 mg 1 cap PO DAILY 01/05/24 01/05/24 History (144 mg-216 mg) capsule (Fish Oil) potassium citrate 99 mg capsule 99 mg PO DAILY 01/05/24 01/05/24 History vitamin E mixed 400 unit tablet 400 unit PO DAILY 01/05/24 01/05/24 History Past Med/Surg History Medical History Hypercholesteremia Encounter for pre-operative examination Hx of migraines History of kidney stones no surgery required/passed on own Osteoarthritis Snoring No witnessed apnea - no hx of sleep study PMR (polymyalgia rheumatica) No longer on meds - only follows with PCP- stable Surgical History Status post total hip replacement, right Status post right hip replacement History of total hip arthroplasty Left DAVID 01/22/23= Done under SAB- L3-4 after attempt at L4-5 (2 attempts) History of tooth extraction History of hysterectomy, supracervical H/O bilateral salpingo-oophorectomy S/P repair of anterior cruciate ligament bilat H/O arthroscopic knee surgery bilat Hx of colonoscopy Family History Father Bladder cancer Other No family history of adverse response to anesthesia Denies family history of Ovarian cancer Prostate cancer Myocardial infarction Breast cancer Colorectal cancer Social History Smoking Status: Never smoker Second Hand Exposure: Yes (as kid); Do You Dip or Chew Tobacco: No; Hx Alcohol Use: No Hx Substance Use: No Preferred Language: Yakut Communication Ability: Effective Coffee Taster Required: No Beliefs That Will Affect Care: None Current Living Situation: Spouse Feels Safe at Home: Yes Assistive Devices: Walker Review of Systems Review of Systems: Neuro: (-) Falls, trauma, slurred speech HEENT: (-) QUARLES, dizziness, dysphagia, visual or auditory changes CV: (-) CP, palpitations, swelling Resp: (-) SOB GI: (-) appetite changes, (+) nausea and bile tinged emesis, no diarrhea, bowel changes : (-) urinary changes Skin: (-) rashes Psych: (-) anxiety, depression Physical Exam Physical Exam: Neuro: AAOx4, PERRLA, no aphagia, memory changes, CNII-XII grossly intact HEENT: head normocephalic, moist mucus membranes CV: S1/S2, (-) M/G/R, (-) edema, cap refill < 3 seconds Resp: Lungs CTA in all cid. On RA GI: RUQ tenderness without distention. Hypoactive x 4 bowel sounds, (+) R flank tenderness Musculoskeletal: 5/5 B/L UE strength, 5/5 B/L LE strength. No gait disturbance Skin: (-) rashes , (-) erythema. Psych: euthymic mood Results & Data Results & Data Vital Signs (Past 12 Hours) Vital Signs Temp Pulse Pulse Resp BP BP Pulse Ox 01/05/24 11:00 70 18 111/71 94 01/05/24 10:15 80 18 176/75 H 93 02/19/24 09:48 77 01/05/24 09:48 75 21 98 01/05/24 09:30 74 18 96 01/05/24 09:04 36.1 C L 80 16 151/79 H 98 O2 Del Method 01/05/24 11:00 Room Air 01/05/24 10:15 01/05/24 09:48 01/05/24 09:48 Room Air 01/05/24 09:30 Room Air 01/05/24 09:04 Room Air Laboratory Results Short CBC 01/05/24 Range/Units 09:49 WBC 13.70 H (4.8-10.8) K/ul Hgb 13.2 (12.0-16.0) g/dl Hct 38.7 (37.0-47.0) % Plt Count 281 (130-400) K/uL BMP 01/05/24 09:49 Sodium 137 Potassium 3.5 Chloride 104 Carbon Dioxide 24 BUN 15 Creatinine 0.60 Glucose 157 H Calcium 9.1 Liver Function 01/05/24 Range/Units 09:49 Total Bilirubin 0.6 (0.2-1.0) mg/dl AST 19 (13-39) U/L ALT 12 (7-52) U/L Alkaline Phosphatase 72 (34-104) U/L Albumin 4.0 (3.4-5.0) gm/dl Urine 01/05/24 Range/Units Unknown Urine Color Yellow Urine Appearance Clear (Clear) Urine pH 8.0 H (4.5-7.5) Ur Specific [place] 1.018 (1.000-1.030) Urine Protein Trace H (Negative) Urine Glucose (UA) Negative (Negative) Diagnostic Findings Gallbladder Ultrasound 01/05/24 09:23 US gallbladder CLINICAL HISTORY: Pain, nausea TECHNIQUE: Multiple real-time sonographic images of the right upper quadrant were obtained. Comparison: None available at the time of this dictation. FINDINGS: The liver is diffusely homogenous with normal contour and echogenicity. No focal mass lesions are seen. No intrahepatic ductal dilatation is seen. Gallbladder wall is thickened measuring 0.4 to 1.5 cm with stones noted. Free fluid is seen adjacent to the gallbladder. A sonographic Lambert's sign was elicited by the bowling alley attendant. The common duct measures 0.8 cm in diameter at the level of the hepatic artery. The visualized portions of the pancreas appear normal. The right kidney shows normal echogenicity, cortical thickness and renal contour. The right kidney shows no evidence of hydronephrosis or mass. No ascites or free fluid is seen in Suarez's pouch. IMPRESSION: Findings compatible with acute cholecystitis. ACT 112: Negative or not required by law. Electronically signed by: Rajendra Ring M.D. 01/05/2024 11:27 AM Code Status & VTE Plan Code Status Full Code in the event of cardiac or respiratory arrest VTE Prophylaxis Plan VTE Prophylaxis will be ordered: Yes Supervising Physician Co-Signing Physician Notes Attending addendum: The patient was seen and examined in the emergency room in presence of the She has been complaining of right upper quadrant pain/bloating for the last few days Has nausea but no vomiting, no fever and or chills The condition has not been improving and she was brought into ER for further evaluation Denies any chest pain, palpitation or shortness of breath with usual activities at home On examination Lying in bed with minimal discomfort due to upper abdominal pain and bloating Afebrile otherwise hemodynamically stable Chest-clear to auscultate bilaterally Heart-S1-S2 with a 1/6 to 2/6 ESM over precordium Abdomen-mildly distended, soft, tender with rebound tenderness right upper quadrant. Bowel sound present Extremities-negative for any edema Her admission labs, EKG, medications and imaging studies reviewed Ultrasound did show acute cholecystitis Surgery has been consulted for possible surgery tomorrow There is no current indication for proposed surgery and carries the usual risk of surgery Has been started on intravenous Zosyn Agree with assessment and plan as outlined above by Pilar Lucio
[2024-01-05 13:18] LABS: Magnesium 1.9 mg/dl (1.7-2.4)
[2024-01-05 13:23] LABS: Phosphorus 2.1 mg/dl (2.5-4.9)
[2024-01-05 14:07] LABS: Estimated Average Glucose 111 mg/dl; Hemoglobin A1C 5.5 % (4.5-5.6)
[2024-01-05] MEDS: ACETAMINOPHEN 1,000 MG/100 ML VIAL IV SCH (14:10)
[2024-01-05] MEDS: SODIUM CHLORIDE 0.9% 1,000 ML IV SCH (14:10)
--- NOTE | 2024-01-05 14:41 | Surgery Consultation ---
Date of Consultation January 05, 2024 Assessment & Plan (1) Acute cholecystitis: IV abx medical clearance IVF to OR in AM for lap riki History of Present Illness History of Present Illness This is a 83-year-old female with known gallstones with previous pain episodes who presents with acute RUQ pain. She began with pain in the right upper quadrant of the abdomen some radiation to the back 2 days ago. Worse with food intake. Nausea and vomiting developing overnight. US shows acute cholecystitis Allergies Allergy/AdvReac Type Severity Reaction Status Date / Time prednisone Allergy Severe Tachycardia Verified 01/05/24 12:44 pitavastatin [From Livalo] Allergy Intermediate leg pain Verified 01/05/24 12:44 and stomach problems procaine Allergy Intermediate Bradycardia Verified 01/05/24 12:44 rosuvastatin Allergy Intermediate leg pain Verified 01/05/24 12:44 and stomach problems atorvastatin Allergy Mild leg pain Verified 01/05/24 12:44 and stomach problems Penicillins AdvReac Intermediate Yeast Verified 01/05/24 12:44 infection Home Medications Medication Instructions Recorded Confirmed Type 3-in-1 Commode #1 ea 12/23/22 01/05/24 Rx 3-in-1 Commode #1 ea 12/23/22 01/05/24 Rx Wheeled Walker #1 ea 12/23/22 01/05/24 Rx Wheeled Walker #1 ea 12/23/22 01/05/24 Rx acetaminophen 500 mg tablet 1,000 mg PO TID pain 01/05/24 01/05/24 History (Tylenol Extra Strength) cholecalciferol (vitamin D3) 50 50 mcg PO DAILY 01/05/24 01/05/24 History mcg (2,000 unit) tablet (Vitamin D3) coenzyme Q10 100 mg capsule 100 mg PO DAILY 01/05/24 01/05/24 History (CoQ-10) cranberry 400 mg capsule 400 mg PO DAILY 01/05/24 01/05/24 History magnesium oxide 400 mg PO DAILY 01/05/24 01/05/24 History omega 3-wyr-moc-fish oil 1,200 mg 1 cap PO DAILY 01/05/24 01/05/24 History (144 mg-216 mg) capsule (Fish Oil) potassium citrate 99 mg capsule 99 mg PO DAILY 01/05/24 01/05/24 History vitamin E mixed 400 unit tablet 400 unit PO DAILY 01/05/24 01/05/24 History Patient History Medical History (Updated 01/05/24 @ 12:25 by THIERRY Sue) Hypercholesteremia Encounter for pre-operative examination Hx of migraines History of kidney stones no surgery required/passed on own Osteoarthritis Snoring No witnessed apnea - no hx of sleep study PMR (polymyalgia rheumatica) No longer on meds - only follows with PCP- stable Surgical History Status post total hip replacement, right Status post right hip replacement History of total hip arthroplasty Left DAVID 01/22/23= Done under SAB- L3-4 after attempt at L4-5 (2 attempts) History of tooth extraction History of hysterectomy, supracervical H/O bilateral salpingo-oophorectomy S/P repair of anterior cruciate ligament bilat H/O arthroscopic knee surgery bilat Hx of colonoscopy Family History Father Bladder cancer Other No family history of adverse response to anesthesia Denies family history of Ovarian cancer Prostate cancer Myocardial infarction Breast cancer Colorectal cancer Social History Smoking Status: Never smoker Second Hand Exposure: Yes (as kid); Do You Dip or Chew Tobacco: No; Hx Alcohol Use: No Preferred Language: Syrian Communication Ability: Effective Guidance Counselor Required: No Beliefs That Will Affect Care: None Current Living Situation: Spouse Feels Safe at Home: Yes Assistive Devices: Walker Review of Systems Constitutional: + fever and + anorexia; no chills Eyes: no problem reported Ear, Nose, Mouth, Throat: no problem reported Respiratory: no cough and no dyspnea Cardiovascular: no chest pain Gastrointestinal: + abdominal pain and + nausea; no vomiti ng and no diarrhea/loose stools Genitourinary: no dysuria Musculoskeletal: + back pain Integumentary: no problem reported Neurologic: no localized weakness and no generalized weakness Psychiatric: no behavioral changes Hematologic / Lymphatic: no easy bleeding and no easy bruising Physical Exam Constitutional: WD/WN, vitals as above Eyes: PERRL, conjunctivae normal, anicteric sclerae ENMT: external ear and nose normal, oropharynx normal Neck: trachea midline Respiratory: normal respiratory effort, lungs clear to auscultation Cardiovascular: RRR, no murmur, no edema Gastrointestinal (Abdomen): Inspection/Auscultation: abdomen normal to inspection and normal bowel sounds; abdomen not distended Percussion/Palpation: + abdomen tender and abdomen soft; no guarding and abdomen not rigid Musculoskeletal: Head/Neck/Chest: normocephalic and head atraumatic Skin: no rashes, warm and dry Results & Data Vital Signs (Past 12 Hours) Vital Signs Temp Pulse Pulse Resp BP BP Pulse Ox 01/05/24 13:54 78 01/05/24 12:30 144/78 H 01/05/24 12:30 76 15 97 01/05/24 12:00 75 19 91 01/05/24 12:00 143/73 H 01/05/24 11:30 156/67 H 01/05/24 11:30 72 19 93 01/05/24 11:00 70 18 111/71 94 01/05/24 10:30 167/88 H 01/05/24 10:30 81 17 72 L 01/05/24 10:15 80 18 176/75 H 93 01/05/24 10:14 176/75 H 01/05/24 10:14 75 23 96 01/05/24 10:00 72 26 H 96 01/05/24 09:48 77 01/05/24 09:48 75 21 98 01/05/24 09:30 75 15 01/05/24 09:30 74 18 96 01/05/24 09:29 77 23 01/05/24 09:04 36.1 C L 80 16 151/79 H 98 O2 Del Method 01/05/24 13:54 01/05/24 12:30 01/05/24 12:30 01/05/24 12:00 01/05/24 12:00 01/05/24 11:30 01/05/24 11:30 01/05/24 11:00 Room Air 01/05/24 10:30 01/05/24 10:30 01/05/24 10:15 01/05/24 10:14 01/05/24 10:14 01/05/24 10:00 01/05/24 09:48 01/05/24 09:48 Room Air 01/05/24 09:30 01/05/24 09:30 Room Air 01/05/24 09:29 01/05/24 09:04 Room Air Diagnostic Findings US gallbladder CLINICAL HISTORY: Pain, nausea TECHNIQUE: Multiple real-time sonographic images of the right upper quadrant were obtained. Comparison: None available at the time of this dictation. FINDINGS: The liver is diffusely homogenous with normal contour and echogenicity. No focal mass lesions are seen. No intrahepatic ductal dilatation is seen. Gallbladder wall is thickened measuring 0.4 to 1.5 cm with stones noted. Free fluid is seen adjacent to the gallbladder. A sonographic Lambert's sign was elicited by the instructor creeler. The common duct measures 0.8 cm in diameter at the level of the hepatic artery. The visualized portions of the pancreas appear normal. The right kidney shows normal echogenicity, cortical thickness and renal contour. The right kidney shows no evidence of hydronephrosis or mass. No ascites or free fluid is seen in Suarez's pouch. IMPRESSION: Findings compatible with acute cholecystitis.
--- NOTE | 2024-01-05 15:33 | XRay Report ---
XR chest 1V portable HISTORY: Pre-op COMPARISON: Chest 01/07/2023. FINDINGS: There are low lung volumes. No pneumothorax. No pleural effusions. A few small bibasilar li near densities favor subsegmental atelectasis or scarring. Otherwise, the lungs are clear. No evidenc e for pulmonary edema. The cardiac silhouette is top normal in size. No acute fractures identified. D egenerative changes within the left shoulder. IMPRESSION: No acute process. ACT 112: Negative or not required by law. Electronically signed by: Reji Llanos M.D. 01/05/2024 3:31 PM
[2024-01-05] MEDS: ONDANSETRON INJ 2 MG/ML 2 ML VIAL IV PRN (16:48)
[2024-01-05] MEDS: MoRPHine SULFATE 2 MG/ML CARP IV PRN (16:48)
[2024-01-05] MEDS: PIPERACILLIN/TAZOBACTAM 4.5 GM in DEXTROSE 5% MINI-B 100 ML IV SCH (17:14)
--- NOTE | 2024-01-06 07:25 | Hospitalist Progress Note ---
Date of Service January 06, 2024 Assessment & Plan (1) Acute cholecystitis: (2) Hypercholesteremia: (3) Osteoarthritis: (4) History of kidney stones: Plan Ms. Bui is an 83 y/o female that presented to the ED today with complains of RUQ and R flank pain which started one week ago; worsening on Wednesday 01/03 and did not respond to PO Tylenol. Yesterday, she did not sleep since 0200; had a few episodes of nausea with yellow/bile tinged emesis. Additional PMH includes: OA and DJD; she had two hip replacements in 2022 (January and May) without complications. Denies tobacco, alcohol, or recreational drug use. Gallbladder Ultrasound revealed Acute cholecystitis. Mild leukocytosis; 13.70. Patient NPO over night and with zosyn running. Plan for OR this morning for cholecystectomy #Acute cholecystitis: Acute -RUQ/R flank pain x 1 week; worsening since 01/03/2024 -GB US: Acute cholecystitis -Leukocytosis 13.70; lactate pending -LFTs unremarkable -Broad-spectrum antibiotic coverage with Zosyn -IV pain control with scheduled Tylenol and Morphine PRN -NPO pending possible surgery -ECG NSR with RBBB compared to 01/07/2023; Will obtain ECHO to complete cardiac pre op clearance -Will check A1c and Mg+ -General surgery consulted; plan for laparoscopic cholecystectomy 01/06/2024 - Repeat CBC, CMP in am to monitor for post op anemia #Preoperative cardiac risk stratification #PHTN on ECHO -graded to be mild/moderate, pasp 50mmhg -no history of MELVINA, morbid obesity, no history of thromboembolic disease, no his tory of autoimmuity -Stable EF 55-60% and no associated LVH, no reported signs of or symptoms of RHF -Monitor post-operative volume status and respiratory status -RCRI: - Hx of CHF: 0, Hx of CVA: 0, Periop insulin: 0, Cr>2: 0, Intraperitoneal:1 CII Risk 6.0% Add on BNP: 341, consider diuresis if requiring continued O2 postop Encourage IS #RBBB EKG from 01/05/24 now with RBBB compared to EKG from 12/2022 -No clear associations of increase post operative complications with presence of RBBB #Hypercholesterolemia: Chronic Diet controlled #OA: Chronic History of hip replacement x2 2022 #History of kidney stones: Chronic Spontaneously passed in the past Does not take any medications for this Disposition: PCP: Dr. Hyde CODE STATUS: Full code VTE prophylaxis: Teds and SCDs for now Admission and Anticipated Discharge Date Admission Date: January 05, 2024 Subjective Patient evaluated in bedside chair Reports pain is absent at time of visit and reports feeling well, and without nausea, vomiting, or other acute concerns Ambulating garrido and eager for procedure Physical Exam Constitutional: WD/WN, vitals as above Respiratory: normal respiratory effort, lungs clear to auscultation Cardiovascular: RRR, no murmur, no edema Gastrointestinal (Abdomen): normal bowel sounds, soft, nontender, no hepatosplenomegaly Results & Data Results & Data Vital Signs (Past 12 Hours) Vital Signs Temp Pulse Resp BP Pulse Ox O2 Del Method O2 Flow Rate 01/05/24 23:28 36.6 C 88 18 126/74 96 Nasal Cannula 2 Laboratory Results Short CBC 01/06/24 Range/Units 06:31 WBC 10.32 (4.8-10.8) K/ul Hgb 10.4 L (12.0-16.0) g/dl Hct 32.1 L (37.0-47.0) % Plt Count 214 (130-400) K/uL BMP 01/06/24 06:31 Sodium 140 Potassium 3.4 L Chloride 107 Carbon Dioxide 30 BUN 15 Creatinine 0.81 Glucose 96 Calcium 8.2 L Liver Function 01/06/24 Range/Units 06:31 Total Bilirubin 0.7 (0.2-1.0) mg/dl AST 36 (13-39) U/L ALT 24 (7-52) U/L Alkaline Phosphatase 68 (34-104) U/L Albumin 3.1 L (3.4-5.0) gm/dl Medications Administered Home Medications Medication Instructions Recorded Confirmed Last Taken 3-in-1 Commode #1 ea 12/23/22 01/05/24 Unknown 3-in-1 Commode #1 ea 12/23/22 01/05/24 Unknown Wheeled Walker #1 ea 12/23/22 01/05/24 Unknown Wheeled Walker #1 ea 12/23/22 01/05/24 Unknown acetaminophen 500 mg tablet 1,000 mg PO TID pain 01/05/24 01/05/24 Unknown (Tylenol Extra Strength) cholecalciferol (vitamin D3) 50 50 mcg PO DAILY 01/05/24 01/05/24 Unknown mcg (2,000 unit) tablet (Vitamin D3) coenzyme Q10 100 mg capsule 100 mg PO DAILY 01/05/24 01/05/24 Unknown (CoQ-10) cranberry 400 mg capsule 400 mg PO DAILY 01/05/24 01/05/24 Unknown magnesium oxide 400 mg PO DAILY 01/05/24 01/05/24 Unknown omega 2-tfo-bat-fish oil 1,200 mg 1 cap PO DAILY 01/05/24 01/05/24 Unknown (144 mg-216 mg) capsule (Fish Oil) potassium citrate 99 mg capsule 99 mg PO DAILY 01/05/24 01/05/24 Unknown vitamin E mixed 400 unit tablet 400 unit PO DAILY 01/05/24 01/05/24 Unknown Active Medications Generic Name Dose Route Start Last Admin Trade Name Freq PRN Reason Stop Dose Admin Fentanyl Citrate 25 mcg 01/06/24 10:31 01/06/24 12:37 Fentanyl Citrate Pf 100 Mcg/2 Ml Vial IV 01/06/24 18:31 25 mcg Q5M PRN Administration PACU Use Only-Pain Piperacillin Sod/Tazobactam 100 mls @ 25 mls/hr 01/05/24 18:00 01/06/24 09:44 Sod 4.5 gm/ Dextrose IV 01/07/24 17:59 25 mls/hr Q8H PER Administration Protocol Acetaminophen 1,000 mg in 100 mls @ 400 mls/hr 01/05/24 13:00 01/06/24 05:39 Ofirmev IV 01/08/24 12:59 Infused Q8H PER Infusion Sodium Chloride 1,000 mls @ 80 mls/hr 01/05/24 13:15 01/06/24 02:10 Nss IV 02/04/24 13:14 80 mls/hr .[id number] PER Administration Sodium Chloride 1,000 mls @ 15 mls/hr 01/06/24 11:00 01/06/24 11:15 Nss IV 02/05/24 10:59 Infused .Q24H PER Infusion Morphine Sulfate 1 mg 01/05/24 12:57 01/05/24 16:48 Morphine Sulfate 2 Mg/Ml Carp IV 01/19/24 12:56 1 mg Q4H PRN Administration Pain Ondansetron HCl 4 mg 01/05/24 12:13 01/05/24 16:48 Ondansetron Inj 2 Mg/Ml 2 Ml Vial IV 02/04/24 12:12 4 mg Q6H PRN Administration Nausea
[2024-01-06 07:33] LABS: Albumin Globulin Ratio 1.3 (0.9-2); Albumin Level 3.1 gm/dl (3.4-5.0); BUN Creatinine Ratio 18.5 (10-20); Bilirubin,Total 0.7 mg/dl (0.2-1.0); Calcium 8.2 mg/dl (8.6-10.3); Creatinine Clr Calc Pharmacy 61.2 ml/min; Est GFR (African American) 78.9 ml/min; Est GFR (Non-African American) 68.1 ml/min; Globulin 2.4 gm/dl (2.5-4.0); Potassium 3.4 mmol/L (3.5-5.1); Total Protein 5.5 gm/dl (6.0-8.3)
[2024-01-06 07:40] LABS: Hematocrit (blood only) 32.1 % (37.0-47.0); Hemoglobin 10.4 g/dl (12.0-16.0); Mean Corpuscular Hemoglobin 29.8 pg (25.0-34.0); Mean Corpuscular Hgb Conc 32.4 g/dL (32.0-36.0); Mean Platelet Volume 9.8 fL (9.4-12.4); Platelet Count 214 K/uL (130-400); RDW Standard Deviation 43.8 fL (36.4-46.3); Red Blood Count 3.49 M/uL (4.20-5.40); White Blood Count 10.32 K/ul (4.8-10.8)
--- NOTE | 2024-01-06 09:51 | History & Physical Bridge Note ---
Date of Service January 06, 2024 History & Physical Bridge Note I have examined the patient, reviewed the History & Physical and in the interval since the performance of the History & Physical I have noted the following changes of clinical significance: no changes noted
[2024-01-06] MEDS ORDERED: fentaNYL citrate PF 100 MCG/2 ML VIAL ONE ×2 (09:59→12:09)
[2024-01-06] MEDS ORDERED: MIDAZOLAM HCL 1 MG/ML 2ML VIAL ONE (09:59)
[2024-01-06] MEDS: LACTATED RINGER'S 1,000 ML IV SCH (10:20)
[2024-01-06] MEDS ORDERED: ePHEDrine sulfate 50 MG/ML AMP IV PRN (10:31)
[2024-01-06] MEDS ORDERED: ONDANSETRON INJ 2 MG/ML 2 ML VIAL IV PRN (10:31)
[2024-01-06] MEDS ORDERED: ATROPINE SULFATE 0.1 MG/ML 10ML SYR IV PRN (10:31)
--- NOTE | 2024-01-06 10:33 | Anesthesiology Consultation ---
Date of Service January 06, 2024 Assessment & Plan (1) Encounter for pre-operative examination: Chart Review Chart Review: Acceptable Risk for Surgery and Patient NOT seen in Pre Admission Testing Consults Requested none History Surgery Operation Date: 01/06/24 10:55 Proposed Procedures p Laparoscopic Cholecystectomy, No Cholangiogram - Jeffrey Odell MD Height/Weight Height: 5 ft 8 in Weight: 82.2 kg Allergies Allergy/AdvReac Type Severity Reaction Status Date / Time prednisone Allergy Severe Tachycardia Verified 01/05/24 12:44 pitavastatin [From Livalo] Allergy Intermediate leg pain Verified 01/05/24 12:44 and stomach problems procaine Allergy Intermediate Bradycardia Verified 01/05/24 12:44 rosuvastatin Allergy Intermediate leg pain Verified 01/05/24 12:44 and stomach problems atorvastatin Allergy Mild leg pain Verified 01/05/24 12:44 and stomach problems Penicillins AdvReac Intermediate Yeast Verified 01/05/24 12:44 infection Medications Home Medications Medication Instructions Recorded Confirmed Last Taken 3-in-1 Commode #1 ea 12/23/22 01/05/24 Unknown 3-in-1 Commode #1 ea 12/23/22 01/05/24 Unknown Wheeled Walker #1 ea 12/23/22 01/05/24 Unknown Wheeled Walker #1 ea 12/23/22 01/05/24 Unknown acetaminophen 500 mg tablet 1,000 mg PO TID pain 01/05/24 01/05/24 Unknown (Tylenol Extra Strength) cholecalciferol (vitamin D3) 50 50 mcg PO DAILY 01/05/24 01/05/24 Unknown mcg (2,000 unit) tablet (Vitamin D3) coenzyme Q10 100 mg capsule 100 mg PO DAILY 01/05/24 01/05/24 Unknown (CoQ-10) cranberry 400 mg capsule 400 mg PO DAILY 01/05/24 01/05/24 Unknown magnesium oxide 400 mg PO DAILY 01/05/24 01/05/24 Unknown omega 7-hds-dtn-fish oil 1,200 mg 1 cap PO DAILY 01/05/24 01/05/24 Unknown (144 mg-216 mg) capsule (Fish Oil) potassium citrate 99 mg capsule 99 mg PO DAILY 01/05/24 01/05/24 Unknown vitamin E mixed 400 unit tablet 400 unit PO DAILY 01/05/24 01/05/24 Unknown Active Medications Generic Name Dose Route Start Last Admin Trade Name Freq PRN Reason Stop Dose Admin Piperacillin Sod/Tazobactam 100 mls @ 25 mls/hr 01/05/24 18:00 01/06/24 09:44 Sod 4.5 gm/ Dextrose IV 01/07/24 17:59 25 mls/hr Q8H PER Administration Protocol Acetaminophen 1,000 mg in 100 mls @ 400 mls/hr 01/05/24 13:00 01/06/24 05:39 Ofirmev IV 01/08/24 12:59 Infused Q8H PER Infusion Sodium Chloride 1,000 mls @ 80 mls/hr 01/05/24 13:15 01/06/24 02:10 Nss IV 02/04/24 13:14 80 mls/hr .[id number] PER Administration Lactated Ringer's 1,000 mls @ 15 mls/hr 01/06/24 10:00 01/06/24 10:20 Lr IV 02/05/24 09:59 15 mls/hr .Q24H PER Administration Morphine Sulfate 1 mg 01/05/24 12:57 01/05/24 16:48 Morphine Sulfate 2 Mg/Ml Carp IV 01/19/24 12:56 1 mg Q4H PRN Administration Pain Ondansetron HCl 4 mg 01/05/24 12:13 01/05/24 16:48 Ondansetron Inj 2 Mg/Ml 2 Ml Vial IV 02/04/24 12:12 4 mg Q6H PRN Administration Nausea NPO Date Last Intake of Fluids: 01/04/24 Date Last Intake of Solids: 01/04/24 Past Medical History Medical History (Updated 01/06/24 @ 10:33 by Juvenal Miramontes MD) Encounter for pre-operative examination Hypercholesteremia Hx of migraines History of kidney stones no surgery required/passed on own Osteoarthritis Snoring No witnessed apnea - no hx of sleep study PMR (polymyalgia rheumatica) No longer on meds - only follows with PCP- stable Exercise / Class Metabolic Activity II 4-5 Yardwork/Stairs/Walk up hill Past Family History Family History Father Bladder cancer Other No family history of adverse response to anesthesia Denies family history of Ovarian cancer Prostate cancer Myocardial infarction Breast cancer Colorectal cancer Past Surgical History Surgical History Status post total hip replacement, right Status post right hip replacement History of total hip arthroplasty Left DAVID 01/22/23= Done under SAB- L3-4 after attempt at L4-5 (2 attempts) History of tooth extraction History of hysterectomy, supracervical H/O bilateral salpingo-oophorectomy S/P repair of anterior cruciate ligament bilat H/O arthroscopic knee surgery bilat Hx of colonoscopy Social History Smoking Status: Never smoker Do You Dip or Chew Tobacco: No Hx Alcohol Use: No Hx Substance Use: No substance use type: does not use Physical Exam Vital Signs Last Vital Signs Temp 36.5 C 01/06/24 10:16 Pulse 76 01/06/24 10:16 Resp 18 01/06/24 10:16 BP 145/58 H 01/06/24 10:16 Pulse Ox 95 01/06/24 10:16 O2 Del Method Room Air 01/06/24 10:16 O2 Flow Rate 2 01/05/24 23:28 Testing Laboratory Results 01/06/24 06:31 01/06/24 06:31 PT 11.0 Seconds (9.0-12.0) 01/05/24 09:49 INR 1.0 (0.9-1.1) 01/05/24 09:49 Hemoglobin A1c 5.5 % (4.5-5.6) 01/05/24 09:49 Urine Color Yellow 01/05/24 Unknown Urine Appearance Clear (Clear) 01/05/24 Unknown Urine pH 8.0 (4.5-7.5) H 01/05/24 Unknown Ur Specific Froid 1.018 (1.000-1.030) 01/05/24 Unknown Urine Protein Trace (Negative) H 01/05/24 Unknown Urine Glucose (UA) Negative (Negative) 01/05/24 Unknown Urine Ketones 1+ (Negative) H 01/05/24 Unknown Urine Nitrite Negative (Negative) 01/05/24 Unknown Ur Leukocyte Esterase Negative (Negative) 01/05/24 Unknown Urine WBC (Auto) 1-5 /hpf (0-5) 01/05/24 Unknown Urine RBC (Auto) 10-30 /hpf (0-4) H 01/05/24 Unknown U Hyaline Cast (Auto) 0 /lpf (0-5) 01/05/24 Unknown U Epithel Cells (Auto) 10-20 /lpf (0-5) H 01/05/24 Unknown Urine Bacteria (Auto) Negative (Negative) 01/05/24 Unknown Electrocardiogram DICTATED BY: Asa Fitzpatrick MD Test Reason : Blood Pressure : / mmHG Vent. Rate : 074 BPM Atrial Rate : 074 BPM P-R Int : 196 ms QRS Dur : 126 ms QT Int : 422 ms P-R-T Axes : 077 -14 -05 degrees QTc Int : 468 ms Normal sinus rhythm Right bundle branch block Abnormal ECG When compared with ECG of 07-JAN-2023 09:33, Right bundle branch block is now Present Confirmed by Asa Fitzpatrick ([id number]) on 01/05/2024 11:02:57 AM
[2024-01-06] MEDS: SODIUM CHLORIDE 0.9% 1,000 ML IV SCH (10:48)
[2024-01-06] MEDS ORDERED: LIDOCAINE 2% 2 ML VIAL/AMP(20MG/ML) INFIL ONE (11:36)
[2024-01-06] MEDS ORDERED: SUGAMMADEX SODIUM 200 MG/2 ML VIAL IV ONE (11:36)
[2024-01-06] MEDS ORDERED: ROCURONIUM BROMIDE 10 MG/ML 5 ML VIAL IV ONE (11:36)
[2024-01-06] MEDS ORDERED: ePHEDrine sulfate 50 MG/5 ML SYR ONE (11:36)
[2024-01-06] MEDS ORDERED: PROPOFOL IV EMULSION 10 MG/ML 20 ML VIAL IV ONE (11:36)
[2024-01-06] MEDS ORDERED: DEXAMETHASONE SOD INJ 4 MG/ML VIAL ONE (11:36)
[2024-01-06] MEDS ORDERED: ONDANSETRON INJ 2 MG/ML 2 ML VIAL ONE (11:36)
[2024-01-06] MEDS: SURGICEL ABSORB HEMOSTAT 2IN X 14IN TOP ONE (11:56)
[2024-01-06] MEDS: BUPIVACAINE/EPINEPHRINE 0.5% MPF 1:200,000 30 ML VIAL ONE (12:06)
--- NOTE | 2024-01-06 12:17 | Post Operative Brief Note ---
Immediate Post Op Note v1 Date of Surgery January 06, 2024 Pre & Post Diagnosis Operation Date: 01/06/24 10:55 Pre-Op Diagnosis: Acute cholecystitis Post-Op Diagnosis: Acute cholecystitis, hydropic gallbladder I identified the patient and participated in the time-out.: Yes Procedure Operation Date: 01/06/24 10:55 Actual Procedures p Laparoscopic Cholecystectomy, No Cholangiogram(Not Applicable) - Jeffrey Odell MD Surgeon Jeffrey Odell MD Skinner Pelts none Estimated Blood Loss 35 Findings Consistent with Post-Op Diagnosis
--- NOTE | 2024-01-06 12:20 | Operative Report ---
Post Operative Report Pre & Post Diagnosis Operation Date: 01/06/24 10:55 Pre-Op Diagnosis: Acute cholecystitis Post-Op Diagnosis: Acute cholecystitis, hydropic gallbladder I identified the patient and participated in the time-out.: Yes Procedure Operation Date: 01/06/24 10:55 Actual Procedures p Laparoscopic Cholecystectomy, No Cholangiogram(Not Applicable) - Jeffrey Odell MD Surgeon Jeffrey Odell MD Battery Charger none Estimated Blood Loss 35 Findings Consistent with Post-Op Diagnosis Acutely inflamed gallbladder. Hydrops of the gallbladder. Specimens Gallbladder to pathology Drains None Anesthesia Type General Complications None Indications Is an 83-year-old female admitted to the ED with acute abdominal pain. She had a workup which included CT which showed acute cholecystitis. She will be a medically cleared. We did get her on IV fluids and IV antibiotics. She presents for laparoscopic cholecystectomy. We went over the risks in detail. Description of Procedure The patient was taken the OR and underwent excellent general endotracheal anesthesia. Their abdomen is prepped and draped normal sterile fashion. Transverse supraumbilical incision was made and dissection was taken down to identify the anterior fascia. Two Vicryl's were placed on either side of the midline and his midline was then incised. The peritoneal cavity was entered bluntly with Mary clamp. A 12mm Mars trocar was then inserted and secured. Good pneumoperitoneum was achieved to 15 mmHg pressure. Patient is placed in head up and rolled to the left. A 11mm subxiphoid and two 5mm lateral ports were placed in the normal fashion. The gallbladder was identified was acutely inflamed. An aspirator was then used to aspirate the gallbladder, hydrops of the gallbladder was identified. This then facilitated grasping the the fundus of the gallbladder which was retracted superiorly. The neck of the gallbladder was grasped and then retracted laterally. This splayed open the Hepatocystic triangle. Attention was then to taking down the peritoneal attachments to identify the cystic duct and cystic artery. Once these were skeletonized and a medial and lateral window was created between the gallbladder fossa and the duct, thereby ensuring the critical view. Three clips were then placed distally on cystic duct 1 proximally the cystic duct was transected. Two clips were then placed approximately cystic artery one distally, the cystic artery was transected. An electrocautery hook was then used to move the gallbladder off the gallbladder fossa. There was some bile spillage but no stones were spilled. The gallbladder was then placed into an Endobag and brought out through the supraumbilical incision. The pneumoperitoneum was re-established and abdomen was irrigated out until the suction fluid was clear. There were some areas on the gallbladder fossa which were raw and were cauterized and then a Surgicel was used to cover the gallbladder fossa. The ports were then removed and the abdomen decompressed. The fascia of the supraumbilical incision was closed with Vicryls. 0.5% Marcaine with epinephrine local was to create a local field block. Interrupted Vicryl was used to close the skin. Steri-Strips and benzoin were used to reinforce the incisions. Sterile dressings were applied. Patient tolerated the procedure without complication and sent to the postop recovery period of observation. She will then be sent to the floor for the rest of his care. I attest to the content of the Intraoperative Record and any orders documented therein. Any exceptions are noted below.
[2024-01-06] MEDS: fentaNYL citrate PF 100 MCG/2 ML VIAL IV PRN (12:32)
[2024-01-06] MEDS: HYDROmorphone INJ 1 MG/ML SYRINGE IV PRN (12:56)
[2024-01-06] MEDS ORDERED: MoRPHine SULFATE 4 MG/ML 1 ML CARP\\VIAL IV PRN (13:38)
[2024-01-06] MEDS ORDERED: MoRPHine SULFATE 2 MG/ML CARP IV PRN (13:38)
[2024-01-06] MEDS ORDERED: oxyCODONE/ACETAMINOPHEN 5mg/325mg TAB PO PRN ×2 (13:38)
[2024-01-06] MEDS ORDERED: Nursing to Pharmacy Communication SCH (14:15)
--- NOTE | 2024-01-06 15:49 | Anesthesiology Progress Note ---
Date of Service January 06, 2024 Anesthesia Post Procedure Vital Signs Vital Signs: Temp Pulse Pulse Resp BP BP Pulse Ox 01/06/24 15:45 36.7 C 70 16 110/62 95 01/06/24 14:45 36.3 C L 72 16 111/61 94 01/06/24 14:15 36.5 C 75 16 110/45 L 94 01/06/24 13:45 36.6 C 78 16 119/71 94 01/06/24 13:25 37.2 C 82 13 128/69 93 01/06/24 13:15 80 16 143/71 H 91 01/06/24 13:05 76 14 142/91 H 95 01/06/24 12:55 79 16 160/83 H 96 01/06/24 12:45 83 19 165/85 H 94 01/06/24 12:35 83 20 167/100 H 96 01/06/24 12:25 36.2 C L 83 15 167/76 H 93 01/06/24 10:16 36.5 C 76 18 145/58 H 95 01/06/24 07:30 36.5 C 69 16 106/58 L 93 01/05/24 23:28 36.6 C 88 18 126/74 96 01/05/24 16:15 36.9 C 72 16 96/54 L 95 O2 Del Method O2 Flow Rate 01/06/24 15:45 Nasal Cannula 3.5 01/06/24 14:45 Nasal Cannula 3.5 01/06/24 14:15 Nasal Cannula 4 01/06/24 13:45 Nasal Cannula 4 01/06/24 13:25 Nasal Cannula 4 01/06/24 13:15 Oxymask 3 01/06/24 13:05 Oxymask 3 01/06/24 12:55 Oxymask 7 01/06/24 12:45 Oxymask 7 01/06/24 12:35 Oxymask 7 01/06/24 12:25 Oxymask 7 01/06/24 10:16 Room Air 01/06/24 07:30 Room Air 01/05/24 23:28 Nasal Cannula 2 01/05/24 16:15 Nasal Cannula 2 Pain Intensity Right Abdomen: Pain Intensity: 4 Transfer of Care Handoff Completed per policy Notes Mental Status: alert / awake / arousable and participated in evaluation Patient Amnestic to Procedure: Yes Nausea / Vomiting: adequately controlled Pain: adequately controlled Airway Patency, RR, SpO2: stable & adequate BP & HR: stable & adequate Hydration State: stable & adequate Anesthetic Complications: no major complications apparent and Pt Satisfied with anesthetic care
[2024-01-07 08:04] LABS: Hematocrit (blood only) 30.9 % (37.0-47.0); Mean Corpuscular Hemoglobin 29.8 pg (25.0-34.0); Mean Corpuscular Hgb Conc 32.4 g/dL (32.0-36.0); Mean Platelet Volume 9.6 fL (9.4-12.4); Platelet Count 216 K/uL (130-400); RDW Standard Deviation 43.8 fL (36.4-46.3); Red Blood Count 3.36 M/uL (4.20-5.40); White Blood Count 11.36 K/ul (4.8-10.8)
[2024-01-07 08:16] LABS: Albumin Globulin Ratio 1.2 (0.9-2); BUN Creatinine Ratio 18.1 (10-20); Bilirubin,Total 0.5 mg/dl (0.2-1.0); Calcium 8.1 mg/dl (8.6-10.3); Creatinine Clr Calc Pharmacy 59.8 ml/min; Est GFR (African American) 76.6 ml/min; Est GFR (Non-African American) 66.1 ml/min; Globulin 2.5 gm/dl (2.5-4.0); Magnesium 1.9 mg/dl (1.7-2.4); Phosphorus 2.3 mg/dl (2.5-4.9); Potassium 3.4 mmol/L (3.5-5.1); Total Protein 5.5 gm/dl (6.0-8.3)
--- NOTE | 2024-01-07 08:53 | Surgery Progress Note ---
Date of Service January 07, 2024 Assessment & Plan (1) Acute cholecystitis: Plan: s/p lap riki discharge per medical team no need for abx at home discharge instructions documented Admission and Anticipated Discharge Date Admission Date: January 05, 2024 Subjective doing well pain controlled taking po Review of Systems Constitutional: no fever and no chills Gastrointestinal: + abdominal pain (mild incisional); no n ausea and no vomiting Physical Exam Gastrointestinal (Abdomen): Inspection/Auscultation: normal bowel sounds and + abdominal surgical incision (dressings in place); abdomen not distended Percussion/Palpation: + abdomen tender and abdomen soft; no guarding and abdomen not rigid Results & Data Vital Signs (Past 12 Hours) Vital Signs Temp Pulse Resp BP BP Pulse Ox O2 Del Method 01/07/24 07:37 36.6 C 70 16 116/62 93 Room Air 01/07/24 03:41 36.5 C 76 18 124/71 96 Nasal Cannula 01/06/24 23:12 36.5 C 64 18 114/62 96 Nasal Cannula 01/06/24 21:50 Room Air O2 Flow Rate 01/07/24 07:37 01/07/24 03:41 01/06/24 23:12 2 01/06/24 21:50
[2024-01-07] MEDS ORDERED: POTASSIUM PHOS 3 MMOL/1 ML INFUSION IV STA (11:17)
[2024-01-07] MEDS: POTASSIUM CHLORIDE CRTAB 20 MEQ TABCR PO STA (11:47)
[2024-01-07] MEDS: POTASSIUM PHOSPHATE 15 MMOL in SODIUM CHLORIDE 0.9% 250 ML IV STA (12:18)
[2024-01-07] MEDS ORDERED: Nursing to Pharmacy Communication SCH (12:45)
[2024-01-07] MEDS: ACETAMINOPHEN 325 MG TAB PO PRN (14:07)
[2024-01-07] MEDS: ACETAMINOPHEN 500 MG TAB PO SCH (14:07)
--- NOTE | 2024-01-07 14:52 | Hospitalist Progress Note ---
Date of Service January 07, 2024 Assessment & Plan (1) Acute cholecystitis: (2) Hypercholesteremia: (3) Osteoarthritis: (4) History of kidney stones: Plan Ms. Bui is an 83 y/o female with PMHx significant for PMR, OA, Hx of kidney stones, migraines and HLD presenting with RUQ abdominal and flank pain (worse with food) and N/V in the setting of acute cholecystitis. Abdominal pain Acute Cholecystitis Pt presented with N/V, RUQ/R flank pain x 1 week; worsening since 01/03/2024 Noted correlation to food intake. WBC elevated to 13K on admission, afebrile US gallbladder ordered in the ED- confirmed acute cholecystitis Hepatic enzymes were wnl General surgery was consulted, appreciate recs. -s/p cholecystectomy on 01/06/24 -notes stable for dc per primary team, no need for abx at home -would like 2 week follow up Continue with pain control Advance diet as tolerated, low fat PT/OT RUE bruising Pt concerned about redness and bleeding/bruising in right arm/forearm Doppler US of RUE ordered -no dvt Pt notified and reassured Acute blood loss anemia Hgb pre-op was 13.2 Currently ~10 likely due to blood loss during surgery Continue to monitor with AM labs for stability Electrolyte Abnormalities -Hypokalemia- replete as needed -Hypophosphatemia-replete as needed Hematuria Noted on admitting UA PCP followup to ensure resolution Pulmonary HTN Elevated BNP Pt with noted elevated BNP on admission of 341 Echo noting EF 55-60%, mild aortic and tricuspid regurg, mild to moderate pulm onary HTN EKG on admission with NSR, RBBB hs-trop wnl Consider outpatient follow up after discharge for pulm HTN HLD Diet controlled Stable OA Stable History of hip replacement x2 2022 History of kidney stones Spontaneously passed in the past Stable Diet: Low fat CODE STATUS: Full code VTE prophylaxis: Teds and SCDs for now, consider Dispo: PT/OT orders pending Admission and Anticipated Discharge Date Admission Date: January 05, 2024 Subjective Pt seen multiple times during the day. In the AM, stated that there was concern for right arm bruising while down in the ED and was having an IV placed. Concerned that she might have a blood clot. Stated that she was eating and tolerating food well. Was passing gas, pain well controlled. Later updated with doppler US results. States that she was sore in the abdominal area. Had a BM. Review of Systems Review of Systems: All systems reviewed & are unremarkable except as noted in Subjective Physical Exam Physical Exam: General: Alert, oriented. No acute distress Skin: Right arm with noted bruising in various stages of coloring (red/green/yellow areas) Psych: Appropriate mood and affect Neuro: No gross deficits HEENT: NC/AT CV: RRR Resp: Breath sounds clear bilaterally, no increased effort of breathing. Abdomen: Soft, bandages without bleeding Extremities: Trace edema in lower extremities bilaterally. Results & Data Results & Data Vital Signs (Past 12 Hours) Vital Signs Temp Pulse Resp BP BP Pulse Ox O2 Del Method 01/07/24 14:19 36.7 C 71 16 107/60 94 Room Air 01/07/24 08:15 Room Air 01/07/24 07:37 36.6 C 70 16 116/62 93 Room Air 01/07/24 03:41 36.5 C 76 18 124/71 96 Nasal Cannula Diagnostic Findings Gallbladder Ultrasound 01/05/24 09:23 US gallbladder CLINICAL HISTORY: Pain, nausea TECHNIQUE: Multiple real-time sonographic images of the right upper quadrant were obtained. Comparison: None available at the time of this dictation. FINDINGS: The liver is diffusely homogenous with normal contour and echogenicity. No focal mass lesions are seen. No intrahepatic ductal dilatation is seen. Gallbladder wall is thickened measuring 0.4 to 1.5 cm with stones noted. Free fluid is seen adjacent to the gallbladder. A sonographic Lambert's sign was elicited by the video production assistant. The common duct measures 0.8 cm in diameter at the level of the hepatic artery. The visualized portions of the pancreas appear normal. The right kidney shows normal echogenicity, cortical thickness and renal contour. The right kidney shows no evidence of hydronephrosis or mass. No ascites or free fluid is seen in Suarez's pouch. IMPRESSION: Findings compatible with acute cholecystitis. ACT 112: Negative or not required by law. Electronically signed by: Rajendra Rign M.D. 01/05/2024 11:27 AM Chest X-Ray 01/05/24 13:47 XR chest 1V portable HISTORY: Pre-op COMPARISON: Chest 01/07/2023. FINDINGS: There are low lung volumes. No pneumothorax. No pleural effusions. A few small bibasilar linear densities favor subsegmental atelectasis or scarring. Otherwise, the lungs are clear. No evidence for pulmonary edema. The cardiac silhouette is top normal in size. No acute fractures identified. Degenerative changes within the left shoulder. IMPRESSION: No acute process. ACT 112: Negative or not required by law. Electronically signed by: Reji Llanos M.D. 01/05/2024 3:31 PM Venous Doppler Study 01/07/24 13:32 RIGHT UPPER EXTREMITY VENOUS DOPPLER HISTORY: Right upper extremity bruising COMPARISON STUDY: None. FINDINGS: The right internal jugular vein is patent. There is normal flow within the right subclavian vein. There is normal flow and compressibility within the right axillary, basilic, brachial, radial, ulnar, and visualized cephalic veins. IMPRESSION: No DVT within the right upper extremity. ACT 112: Negative or not required by law. Electronically signed by: Reji Llanos M.D. 01/07/2024 3:40 PM
--- NOTE | 2024-01-07 15:41 | Ultrasound Report ---
RIGHT UPPER EXTREMITY VENOUS DOPPLER HISTORY: Right upper extremity bruising COMPARISON STUDY: None. FINDINGS: The right internal jugular vein is patent. There is normal flow within the right subclavian vein. There is normal flow and compressibility within the right axillary, basilic, brachial, radial, ulnar, and visualized cephalic veins. IMPRESSION: No DVT within the right upper extremity. ACT 112: Negative or not required by law. Electronically signed by: Reji Llanos M.D. 01/07/2024 3:40 PM
[2024-01-08 08:45] LABS: Hematocrit (blood only) 32.3 % (37.0-47.0); Hemoglobin 10.7 g/dl (12.0-16.0); Mean Corpuscular Hemoglobin 30.4 pg (25.0-34.0); Mean Corpuscular Hgb Conc 33.1 g/dL (32.0-36.0); Mean Corpuscular Volume 91.8 fL (80.0-100.0); Mean Platelet Volume 9.5 fL (9.4-12.4); Platelet Count 265 K/uL (130-400); RDW Coefficient of Variation 13.2 % (11.5-14.5); RDW Standard Deviation 44.5 fL (36.4-46.3); Red Blood Count 3.52 M/uL (4.20-5.40)
[2024-01-08 08:48] LABS: BUN Creatinine Ratio 24.3 (10-20); Calcium 8.6 mg/dl (8.6-10.3); Creatinine Clr Calc Pharmacy 70.9 ml/min; Est GFR (African American) 94.2 ml/min; Est GFR (Non-African American) 81.3 ml/min; Potassium 3.6 mmol/L (3.5-5.1)
[2024-01-08 08:51] LABS: Albumin Globulin Ratio 1.2 (0.9-2); Albumin Level 3.4 gm/dl (3.4-5.0); Bilirubin,Total 0.5 mg/dl (0.2-1.0); Globulin 2.9 gm/dl (2.5-4.0); Magnesium 1.9 mg/dl (1.7-2.4); Phosphorus 1.4 mg/dl (2.5-4.9); Total Protein 6.3 gm/dl (6.0-8.3)
[2024-01-08] MEDS ORDERED: POTASSIUM PHOS 3 MMOL/1 ML INFUSION IV STA (08:53)
[2024-01-08] MEDS: POTASSIUM PHOSPHATE 24 MMOL in SODIUM CHLORIDE 0.9% 500 ML IV ONE (09:53)
[2024-01-08] MEDS: POT PHOSPHATE MONOBASIC W/ SOD TAB PO SCH (09:53)
--- NOTE | 2024-01-08 12:11 | Hospitalist Progress Note ---
Date of Service January 08, 2024 Assessment & Plan (1) Acute cholecystitis: (2) Hypercholesteremia: (3) Osteoarthritis: (4) History of kidney stones: Plan Ms. Bui is an 83 y/o female with PMHx significant for PMR, OA, Hx of kidney stones, migraines and HLD presenting with RUQ abdominal and flank pain (worse with food) and N/V in the setting of acute cholecystitis. Abdominal pain Acute Cholecystitis Pt presented with N/V, RUQ/R flank pain x 1 week; worsening since 01/03/2024 Noted correlation to food intake. WBC elevated to 13K on admission, afebrile US gallbladder ordered in the ED- confirmed acute cholecystitis Hepatic enzymes were wnl General surgery was consulted, appreciate recs. -s/p cholecystectomy on 01/06/24 -notes stable for dc per primary team, no need for abx at home -would like 2 week follow up Continue with pain control Advance diet as tolerated, low fat PT/OT RUE bruising Pt concerned about redness and bleeding/bruising in right arm/forearm Doppler US of RUE ordered -no dvt Pt notified and reassured Acute blood loss anemia Hgb pre-op was 13.2 Currently ~10 likely due to blood loss during surgery Continue to monitor with AM labs for stability Electrolyte Abnormalities -Hypokalemia- replete as needed -Hypophosphatemia-replete as needed Hematuria Noted on admitting UA PCP followup to ensure resolution Pulmonary HTN Elevated BNP Pt with noted elevated BNP on admission of 341 Echo noting EF 55-60%, mild aortic and tricuspid regurg, mild to moderate pulm onary HTN EKG on admission with NSR, RBBB hs-trop wnl Consider outpatient follow up after discharge for pulm HTN HLD Diet controlled Stable OA Stable History of hip replacement x2 2022 History of kidney stones Spontaneously passed in the past Stable Diet: Low fat CODE STATUS: Full code VTE prophylaxis: Teds and SCDs for now, consider Dispo: PT/OT orders pending Admission and Anticipated Discharge Date Admission Date: January 05, 2024 Subjective Pt seen multiple times during the day. In the AM, stated that there was concern for right arm bruising while down in the ED and was having an IV placed. Concerned that she might have a blood clot. Stated that she was eating and tolerating food well. Was passing gas, pain well controlled. Later updated with doppler US results. States that she was sore in the abdominal area. Had a BM. Physical Exam Physical Exam: General: Alert, oriented. No acute distress Skin: Right arm with noted bruising in various stages of coloring (red/green/ yellow areas) Psych: Appropriate mood and affect Neuro: No gross deficits HEENT: NC/AT CV: RRR Resp: Breath sounds clear bilaterally, no increased effort of breathing. Abdomen: Soft, bandages without bleeding Extremities: Trace edema in lower extremities bilaterally. Results & Data Results & Data Vital Signs (Past 12 Hours) Vital Signs Temp Pulse Resp BP Pulse Ox O2 Del Method 01/08/24 07:38 36.6 C 83 18 143/72 H 91 Room Air 01/08/24 07:23 Room Air
[2024-01-08 15:36] LABS: Phosphorus 3.9 mg/dl (2.5-4.9); Potassium 3.5 mmol/L (3.5-5.1)
--- NOTE | 2024-01-08 16:35 | Discharge Summary ---
Discharge Summary Date of Service January 08, 2024 Notes For Next Care Provider Please repeat phosphorus, magnesium and BMP at follow up appointment to ensure stability. Consider outpatient follow up after discharge for noted pulmonary HTN on echocardiogram. Medication Changes From Visit None Admission HPI Per Admitting Provider Ms. Bui is an 83 year old female that presented to the ED today with complains of RUQ and R flank pain which started one week ago; worsening on Wednesday 01/03 and did not respond to PO tylenol. Yesterday, she did not sleep since 0200; had a few episodes of nausea with yellow/bile tinged emesis. Reports that her symptoms are worse with food intake. Additional PMH includes: OA and DJD; she had two hip replacements in 2022 (January and May) without complications. Denies tobacco, alcohol, or recreational drug use. Today, in the ED; Gallbladder Ultrasound revealed Acute cholecystitis. Mild leukocytosis; 13.70, electrolytes unremarkable; pending Mg+. LFT's unremarkable, Troponin and Lipase negative. Serum glucose 157; as no outpatient records available; will check A1C prior to sx. ECG NSR with RBBB that appears new compared to ECG on 01/07/23. Does not take any medications outside of vitamins. Covid negative in ED. Pt denies QUARLES, fever, chills, dizziness, SOB, chest pain, palpitations, dysuria, bowel or bladder changes, recent falls or trauma. ED spoke with general surgery who will perform formal consultation with possible laparoscopic cholecystectomy tomorrow 01/06/24. For now, cover with broad- spectrum abx, Check lactate, Mg +, and Phos. pain control with scheduled IV Tylenol and PRN IV Morphine. Will obtain ECHO to complete cardiac pre op clearance. Keep NPO pending surgery consult. Admission Exam Per Admitting Provider Neuro: AAOx4, PERRLA, no aphagia, memory changes, CNII-XII grossly intact HEENT: head normocephalic, moist mucus membranes CV: S1/S2, (-) M/G/R, (-) edema, cap refill < 3 seconds Resp: Lungs CTA in all cid. On RA GI: RUQ tenderness without distention. Hypoactive x 4 bowel sounds, (+) R flank tenderness Musculoskeletal: 5/5 B/L UE strength, 5/5 B/L LE strength. No gait disturbance Skin: (-) rashes , (-) erythema. Psych: euthymic mood Principal Dx & Hospital Course #1 = Principal Diagnosis (1) Acute cholecystitis: (2) Hypercholesteremia: (3) Osteoarthritis: (4) History of kidney stones: Plan Ms. Bui is an 83 y/o female with PMHx significant for PMR, OA, Hx of kidney stones, migraines and HLD presenting with RUQ abdominal and flank pain (worse with food) and N/V in the setting of acute cholecystitis. Abdominal pain Acute Cholecystitis Pt presented with N/V, RUQ/R flank pain x 1 week; worsening since 01/03/2024 Noted correlation to food intake. WBC elevated to 13K on admission, afebrile US gallbladder ordered in the ED- confirmed acute cholecystitis Hepatic enzymes were wnl General surgery was consulted, appreciate recs. -s/p cholecystectomy on 01/06/24 -notes stable for dc per primary team, no need for abx at home -surgery would like 2 week follow up Pt declined narcotics for pain control at home, can continue with tylenol prn Low fat diet PT/OT- recommending discharge home RUE bruising Pt concerned about redness and bleeding/bruising in right arm/forearm Doppler US of RUE ordered -no dvt Pt notified and reassured Acute blood loss anemia Hgb pre-op was 13.2 Currently ~10 on discharge likely due to blood loss during surgery PCP follow up to ensure stability Electrolyte Abnormalities -Hypokalemia- repleted as needed. K 3.5 on discharge. -Hypophosphatemia-repleted as needed. Was low at 1.3 in the AM of 01/08 but within normal limits at 3.9 on discharge. Close PCP follow up after discharge. Hematuria Noted on admitting UA PCP followup to ensure resolution Pulmonary HTN Elevated BNP Pt with noted elevated BNP on admission of 341 Echo noting EF 55-60%, mild aortic and tricuspid regurg, mild to moderate pulmonary HTN EKG on admission with NSR, RBBB hs-trop wnl Consider outpatient follow up after discharge for pulm HTN HLD Diet controlled Stable OA Stable History of hip replacement x2 2022 History of kidney stones Spontaneously passed in the past Stable Discharge Exam General: Alert, oriented. No acute distress Skin: Right arm with noted bruising in various stages of coloring (red/green/yellow areas) Psych: Appropriate mood and affect Neuro: No gross deficits HEENT: NC/AT CV: RRR Resp: Breath sounds clear bilaterally, no increased effort of breathing. Abdomen: Soft, bandages without bleeding, tender and sore on palpation Extremities: Trace edema in lower extremities bilaterally. Updated Medication List Medication Instructions Recorded Confirmed Type 3-in-1 Commode #1 ea 12/23/22 01/05/24 Rx 3-in-1 Commode #1 ea 12/23/22 01/05/24 Rx Wheeled Walker #1 ea 12/23/22 01/05/24 Rx Wheeled Walker #1 ea 12/23/22 01/05/24 Rx acetaminophen 500 mg tablet 1,000 mg PO TID pain 01/05/24 01/05/24 History (Tylenol Extra Strength) cholecalciferol (vitamin D3) 50 50 mcg PO DAILY 01/05/24 01/05/24 History mcg (2,000 unit) tablet (Vitamin D3) coenzyme Q10 100 mg capsule 100 mg PO DAILY 01/05/24 01/05/24 History (CoQ-10) cranberry 400 mg capsule 400 mg PO DAILY 01/05/24 01/05/24 History magnesium oxide 400 mg PO DAILY 01/05/24 01/05/24 History potassium citrate 99 mg capsule 99 mg PO DAILY 01/05/24 01/05/24 History vitamin E mixed 400 unit tablet 400 unit PO DAILY 01/05/24 01/05/24 History Hospital Stay Data Consultations 01/05/24 11:38 Consult General Surgery Routine 01/05/24 12:13 ED Decision to Admit Stat 01/07/24 08:51 Consult Patient Rep [Consult Patient Services] Routine Procedures Performed Operation Date: 01/06/24 10:55 Actual Procedures p Laparoscopic Cholecystectomy, No Cholangiogram(Not Applicable) - Jeffrey Odell MD Diagnostic Imagining Performed 01/05/24 09:23 US gallbladder Stat 01/07/24 13:32 US venous doppler UE RT Urgent Gallbladder Ultrasound 01/05/24 09:23 US gallbladder CLINICAL HISTORY: Pain, nausea TECHNIQUE: Multiple real-time sonographic images of the right upper quadrant were obtained. Comparison: None available at the time of this dictation. FINDINGS: The liver is diffusely homogenous with normal contour and echogenicity. No focal mass lesions are seen. No intrahepatic ductal dilatation is seen. Gallbladder wall is thickened measuring 0.4 to 1.5 cm with stones noted. Free fluid is seen adjacent to the gallbladder. A sonographic Lambert's sign was elicited by the therapist respiratory. The common duct measures 0.8 cm in diameter at the level of the hepatic artery. The visualized portions of the pancreas appear normal. The right kidney shows normal echogenicity, cortical thickness and renal contour. The right kidney shows no evidence of hydronephrosis or mass. No ascites or free fluid is seen in Suarze's pouch. IMPRESSION: Findings compatible with acute cholecystitis. ACT 112: Negative or not required by law. Electronically signed by: Rajendra Ring M.D. 01/05/2024 11:27 AM Chest X-Ray 01/05/24 13:47 XR chest 1V portable HISTORY: Pre-op COMPARISON: Chest 01/07/2023. FINDINGS: There are low lung volumes. No pneumothorax. No pleural effusions. A few small bibasilar linear densities favor subsegmental atelectasis or scarring. Otherwise, the lungs are clear. No evidence for pulmonary edema. The cardiac silhouette is top normal in size. No acute fractures identified. Degenerative changes within the left shoulder. IMPRESSION: No acute process. ACT 112: Negative or not required by law. Electronically signed by: Reji Lalnos M.D. 01/05/2024 3:31 PM Venous Doppler Study 01/07/24 13:32 RIGHT UPPER EXTREMITY VENOUS DOPPLER HISTORY: Right upper extremity bruising COMPARISON STUDY: None. FINDINGS: The right internal jugular vein is patent. There is normal flow within the right subclavian vein. There is normal flow and compressibility within the right axillary, basilic, brachial, radial, ulnar, and visualized cephalic veins. IMPRESSION: No DVT within the right upper extremity. ACT 112: Negative or not required by law. Electronically signed by: Reji Llanos M.D. 01/07/2024 3:40 PM Pending Results Patient Have Any Pending Studies at Discharge: No Discharge Instructions Given to Patient (Per Discharging Provider) Ms. Bui, You were treated with surgery for acute cholecystitis. We recommend a low fat diet after surgery. You indicated that you do not need pain medications post-op. However, should you unexpectedly experience pain while home you can use over the counter Tylenol to help your pain. Your phosphorus and potassium levels were also low while hospitalized but we repleted those and they are within normal limits on discharge. We ask that you keep close follow up with your pcp's office to ensure those levels remain stable. Again, please keep close follow up with your primary care provider after discharge. Please do not hesitate to come back to the emergency room if your symptoms worsen or return. It was a pleasure taking care of you while you were here. Total Time Total Time Spent Total Time Spent (In Minutes): > 30 minutes
== END 2024-01-08 17:18 | disposition home or self-care (01) | DRG 418 ==
LOC: ED 08:54 → INTOOBSV 12:13 → SUATTDRO 12:13 → 3W 12:13